=== PATIENT | male | born 1990 | race African-American/Black ===

== ENCOUNTER 2018-03-24 14:04 | Emergency (ER) | payer SELFPAY ==
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
--- NOTE | 2018-03-24 14:04 | DT_ITS ---
This patient was seen during an EMR downtime March 20, 2018 - March 27, 2018. This patient may have a combination of paper and electronic documentation or all paper documentation. All documentation is viewable within the e-chart portion of [facility] for each patient visit.
== END 2018-03-24 15:10 | disposition home or self-care (01) ==
LOC: ED 18:10
PROVIDERS: Emergency Provider Emergency Medicine
DX: S62.336A Displaced fracture of neck of fifth metacarpal bone, right hand, initial encounter for closed fracture (principal); W22.8XXA Striking against or struck by other objects, initial encounter; Y93.9 Activity, unspecified; Y92.89 Other specified places as the place of occurrence of the external cause; Y99.9 Unspecified external cause status; Z72.0 Tobacco use
CPT/HCPCS: 29125; 73130; 99283

== ENCOUNTER 2018-03-25 23:00 | Emergency (ER) | payer SELFPAY ==
--- NOTE | 2018-03-25 23:00 | DT_ITS ---
This patient was seen during an EMR downtime March 20, 2018 - March 27, 2018. This patient may have a combination of paper and electronic documentation or all paper documentation. All documentation is viewable within the e-chart portion of [facility] for each patient visit.
== END 2018-03-25 23:15 | disposition home or self-care (01) ==
PROVIDERS: Emergency Provider Emergency Medicine
DX: M25.531 Pain in right wrist (principal); S62.501D Fracture of unspecified phalanx of right thumb, subsequent encounter for fracture with routine healing; D57.1 Sickle-cell disease without crisis; X58.XXXD Exposure to other specified factors, subsequent encounter
CPT/HCPCS: 96372; 99282

== ENCOUNTER 2019-09-04 08:29 | Emergency (ER) | payer SELFPAY ==
[2019-09-04 08:30] VITALS: BP 121/77; PULSE 84; RESP 16; TEMP 36.7; O2SAT 95; BMI 20.9
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
--- NOTE | 2019-09-04 08:43 | ED.DEP ---
ED Disposition - Plan for ED Patient: Referrals: Care Physician,No Primary [Primary Care Provider] - Stacy Waters MD [STAFF PHYSICIAN] - As Needed Additional Instructions: May resume regular use of right hand for work
== END 2019-09-04 09:02 | disposition home or self-care (01) ==
PROVIDERS: Emergency Provider Emergency Medicine
DX: Z76.89 Persons encountering health services in other specified circumstances (principal); Z72.0 Tobacco use
CPT/HCPCS: 99282

== ENCOUNTER 2019-11-14 12:53 | Emergency (ER) | payer SELFPAY ==
[2019-11-14 12:55] VITALS: BP 132/78; PULSE 74; RESP 15; TEMP 37.2; O2SAT 96; BMI 21.4
--- NOTE | 2019-11-14 13:32 | ED.VISSUMM ---
- ER Visit Summary Date of Service: 11/14/19 Chief Complaint: Sickle cell pain History of Present Illness: The patient is a 29 M who presents with sickle cell pain that became worse today. Patient describes his pain is sharp. Patient states his pain is in his low back and behind his knees bilaterally. Patient states his pain is worse when he lays on his back. Patient denies any fevers or chills. Patient admits to some intermittent lower chest pain. Patient denies any neck pain. Patient denies any nausea or vomiting. Patient states he took Naprosyn at home with no relief. Patient states his last episode of sickle cell pain where he needed to be treated was 2 years ago. Physical Examination: Vital signs are stable. Patient is afebrile. Patient is in no acute distress. Oral mucosa is pink and moist. Neck is supple. Trachea is midline. There is no JVD. Heart was regular rate and rhythm. Lungs are clear and equal bilaterally. Abdomen is soft. Bowel sounds are normal. There is no tenderness. Cranial nerves II through XII are intact. There are no focal motor or sensory deficits noted. Musculoskeletal exam reveals tenderness over the lumbar paraspinal muscles and lumbar spine. There is no bony crepitance or step-off. There is also mild tenderness in the popliteal fossa bilaterally. Range of motion was slightly limited in all motions of the lumbar spine and bilateral knee secondary to pain. There are no motor or sensory deficits noted. Test Results: CBC showed a white blood cell count of 11.2. Hemoglobin was 9.8 and hematocrit is 29.0. Manual differential showed 40 segs, 42 lymphocytes, 7 eosinophils, 1 myelocyte, and 2 promyelocytes. There were 13 nucleated RBCs. Comprehensive metabolic profile was essentially within normal limits. Emergency Department Course and Treatment: Patient was given IV fluids, morphine, and Zofran here. Patient had minimal relief with the morphine. Patient was given a dose of Dilaudid here. Patient was instructed to drink plenty of fluids. Patient was instructed to follow-up with his primary care physician in 5 to 7 days. Patient understood and was agreeable with the plan. All questions were answered. Disposition: Discharge home Impression: Sickle cell disease This note was generated with [employer] software. It may contain incorrect words, spelling, and punctuation that were not noted in review of the chart prior to signing ED Disposition - Plan for ED Patient: Disposition: Home or Assisted Living Diagnosis: Sickle cell disease Instructions: Sickle Cell Pain Crisis Referrals: Care Physician,No Primary [Primary Care Provider] - Zoie Burr MD [STAFF PHYSICIAN] - 5-7 Days
[2019-11-14] MEDS: Morphine 4 MG/ML Syringe IV (13:41)
[2019-11-14] MEDS: Ondansetron 4 MG/2 ML Vial IV (13:41)
[2019-11-14] MEDS: 0.9% Normal Saline 1,000 ML 1000 ML IV (13:42)
[2019-11-14 13:58] LABS: Bacteria 0 SEEN /hpf (None Seen); Mucous, Urine 0 SEEN /hpf (<or=2+); Squamous Epithelial Cells - UA 0 SEEN /hpf (0-5); White Blood Cells 0 SEEN /hpf (0-5)
[2019-11-14 14:00] LABS: Hemoglobin 9.8 g/dL (13.0-16.5); Mean Corp Hgb Conc 33.8 g/dL (32-36); Mean Corpuscular Hgb 24.4 pg (27.0-32.0); Mean Corpuscular Volume 72.1 fL (80-94); POSITIVE COUNT YES; POSITIVE MORPHOLOGY YES; Platelet Count 323 K/mm3 (150-450); RBC Distribution Width CV 16.6 % (11.6-14.6); RBC Distribution Width SD 39.5 fl (35.1-43.9); Red Blood Count 4.02 M/mm3 (4.6-6.2)
[2019-11-14 14:01] LABS: Color, Urine Yellow (Yellow); Glucose, Dipstick Normal (Normal); Ketone-Dipstick Negative (Negative); Leukocyte Esterase-Dipstick Negative /ul (Negative); Nitrite-Dipstick Negative (Negative); Occult Blood-Urine Negative /ul (Negative); Protein-Dipstick Negative (Negative); Urine Bilirubin Dipstick Negative (Negative); Urine Clarity Sl. Cloudy (Clear); Urine Urobilinogen Normal (Normal); Urine pH 6.5 (5.0 - 8.0)
[2019-11-14 14:07] LABS: Red Blood Cells-Urine 0-5 SEEN /hpf (0-5)
[2019-11-14 14:17] LABS: ALB/GLOB Ratio 1.1 RATIO (0.9-2.4); AST(SGOT) 32 U/L (15-37); Alanine Aminotransfer ALT/SGPT 28 U/L (16-61); Albumin, Serum 4.1 g/dL (3.2-5.0); Alkaline Phosphatase 97 U/L (45-117); Anion Gap 4 (5-15); BUN 8 mg/dL (7-18); BUN/Creat Ratio 10.1 RATIO (10-20); Calcium,Total 8.8 mg/dL (8.5-10.1); Chloride 108 mmol/L (98-107); Creatinine, Serum 0.79 mg/dL (0.70-1.30); EST Glomerular Filtration Rate 121 mL/min (>60); Est Glom Filt Rate - Afr Amer 147 mL/min (>60); Estimated Creatinine Clearance 133.57 ml/min; Globulin 3.8 g/dL (2.2-4.2); Glucose 94 mg/dL (74-106); Potassium 3.7 mmol/L (3.5-5.1); Protein, Total 7.9 g/dL (6.4-8.2); Sodium Level 141 mmol/L (136-145)
[2019-11-14 14:18] LABS: Differential Indicated MANUAL DIFF
[2019-11-14 14:55] LABS: Corrected WBC 11.2 K/mm3 (4.4-11.0); Eosinophil 7 % (0-5); Lymphocyte 42 % (19-41); Monocyte 8 % (0-10); Myelocyte 1 (0-0); Neutrophil-Segmented 40 % (47-70); Nucleated Red Bld Cells,Manual 13 % (0-5); Promyelocyte 2 (0-0); Total Cells Counted 100 (MANUAL DIFF)
[2019-11-14 14:56] LABS: Platelet Estimate ADEQUATE (ADEQ); Red Cell Morphology NORM C+C NORMAL (NORM C&C)
[2019-11-14 14:57] LABS: Absolute Neutrophil Count 4.5 X10^3/uL (2.0-7.7)
[2019-11-14] MEDS: HYDROmorphone 0.5 MG/0.5 ML SYRINGE IV (15:25)
[2019-11-14 15:57] VITALS: BP 116/74; PULSE 69; RESP 16; O2SAT 97
[2019-11-15 13:10] LABS: Pathologist Review Reviewed
== END 2019-11-14 15:59 | disposition home or self-care (01) ==
PROVIDERS: Emergency Provider Emergency Medicine
DX: D57.1 Sickle-cell disease without crisis (principal); F17.200 Nicotine dependence, unspecified, uncomplicated
CPT/HCPCS: 80053; 81001; 85025; 96361; 96374; 96375; 99284; J7030; A4216; J2405

== ENCOUNTER 2019-11-15 08:38 | Inpatient (IN) | payer SELFPAY ==
[2019-11-14 12:55] VITALS: BMI 21.4
[2019-11-15] VITALS (9 sets, daily range): BP systolic 109–138; BP diastolic 58–76; PULSE 60–77; RESP 16; TEMP 36.4–37.2; O2SAT 94–98; BMI 20.9; BMI 20.1
--- NOTE | 2019-11-15 09:14 | ED.DCSUM_ITS ---
History of Present Illness Chief Complaint: General Illness Informant: Patient Onset: Yesterday Context: Gradual Onset Timing: Continuous Narrative: Patient is a 29-year-old male with history of sickle cell disease and s plenectomy presenting with pain. Patient states since yesterday he has had pain in his tailbone area, right knee/calf as well as left forearm. States he also has some pain in the center of his chest. He was seen and evaluated yesterday for the same complaint. Patient had a CBC which showed a mild anemia and was treated with morphine and then IV Dilaudid. Patient had improvement of his symptoms was discharged home with Motrin. He states that overnight he took Motrin and Advil but did not have any relief of his pain. 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 He denies any other complaints at this time. He denies any shortness of breath, nausea, vomiting, GI or symptoms. He denies any edema of his legs. He questionably had a fever last night per his significant other because he felt warm. No documented fever. Patient denies any history of acute chest syndrome. He is not on any chronic pain medication per his report. Past Medical History - Allergies and Home Meds Allergies/Adverse Reactions: Allergies No Known Allergies Allergy (Verified 11/15/19 08:39) Primary Care Physician: Care Physician,No Primary [Primary Care Provider] - Past Medical History: - - Sickle cell disease Surgical History: - - Splenectomy Lives: Spouse/ Significant Other Smoking Status: Current every day smoker Review of Systems General: Reports: Chills, Fever, Malaise, Subjective. Denies: Sweats Eyes: Denies: Visual changes - bilaterally, Diplopia ENT: Denies: Rhinorrhea, Sore throat Cardiovascular: Reports: Chest pain. Denies: Palpitations Respiratory: Denies: Dyspnea, Cough, Dyspnea on exertion Gastrointestinal: Denies: Abdominal pain, Nausea, Vomiting, Diarrhea, Melena, Hematochezia Genitourinary: Denies: Dysuria, Hematuria, Frequency Musculoskeletal: Reports: Back pain, Extremity Pain Skin: Denies: Rash, Wounds Neurological: Denies: Headache, Weakness, Numbness Physical Exam Vital Signs/Narrative: Vital Signs Temp Pulse Resp BP Pulse Ox 11/15/19 08:40 99.0 F 77 16 115/70 96 Inital Vital Signs reviewed: Yes General: Well nourished, Well developed, No Acute Distress Head: Normocephalic, Atraumatic Eyes: Perrl, EOMI ENT: Moist mucous membranes, No rhinorrhea Neck: Supple, Nontender Cardiovascular: Regular rate, Regular rhythm, No murmurs Respiratory: No distress, CTA bilaterally, Chest nontender Abdomen: Soft, Nontender, Nondistended, Normal bowel sounds Back: Nontender, Normal Inspection. Negative for: CVA tenderness, Spinal tenderness Extremities: Nontender, No edema, - - No reproducible muscle skeletal tenderness, compartments are soft. No joint effusions present. No warmth of the joints.. Negative for: Tenderness Skin: Normal color, No rash Neurological: Alert, Oriented x3, Cranial nerves II-XII grossly intact, Normal Strength, Normal Sensation Psychological: Normal affect, Normal Mood Diagnostic/Tx/Re-eval Chest X-Ray - ED: 2 View, Read by ED Physician, Read by Radiologist, No Acute Disease Clinical Impression(s) from Imaging Studies Chest X-Ray 11/15/19 10:24 IMPRESSION: Normal x-ray examination of the chest. Electronically Signed: Braeden Mariano, at 11:12 EST , Service support , Laboratory Data 11/15/19 11/15/19 09:45 09:45 WBC 11.1 H RBC 3.81 L Hgb 9.1 L Hct 27.2 L MCV 71.4 L MCH 23.9 L MCHC 33.5 RDW Std Deviation 40.8 RDW Coeff of Marko 17.5 H Plt Count 275 MPV 8.4 Immature Gran % (Auto) 3.800 H Neut % (Auto) 54.2 Lymph % (Auto) 31.7 Weakley % (Auto) 6.6 Eos % (Auto) 3.3 Baso % (Auto) 0.4 Absolute Neuts (auto) 6.0 Absolute Lymphs (auto) 3.53 Nucleated RBC % 20.1 H Diff Path Review May foll Hypochromasia 1+ Anisocytosis 2+ Sickle Cells 1+ Target Cells 2+ Retic Count 8.97 H Immature Retic Fraction 34.80 H Retic Hgb Equivalent 23.7 L Troponin I < 0.015 - Rhythm Strip Rhythm Strip: Sinus Rhythm Rate: 60 Ectopy: None - EKG Initial EKG Interpretation: Sinus Rhythm, - - Normal sinus rhythm at a rate of 60 Normal axis Normal intervals Nonspecific T wave inversion in V1 and V2 LVH criteria met - Medical Decision Making Patient evaluated for multiple sites of pain. He does have history of sickle cell disease his presentation is consistent with his prior sickle cell flares. He does have some mild chest pain. He is not hypoxic. Chest x-ray is not show any acute infiltrate and his troponin is normal. EKG does not show any dynamic ST segment changes. I do not suspect acute chest crisis. His reticulocyte count is elevated and I am not concerned for acute aplastic crisis. Patient does have a mild anemia which is likely his baseline. Patient receives 2 doses of IV Dilaudid as well as IV Toradol. He is not having any significant improvement of his pain. He will be admitted for acute pain crisis. He is agreeable with this plan. I think this is especially indicated as patient does not have a PCP or a look out tower fire watcher. Patient is ordered a third dose of IV Dilaudid in the emergency room. Discussed with Dr. Pichardo who is agreeable with admission. Patient stable at time of disposition. ED Disposition - Plan for ED Patient: Disposition: Acute Care [facility] Diagnosis: Sickle cell pain crisis Referrals: Care Physician,No Primary [Primary Care Provider] -
--- NOTE | 2019-11-15 09:14 | EKG12_ITS ---
Test Reason : PAIN Blood Pressure : / mmHG Vent. Rate : 060 BPM Atrial Rate : 060 BPM P-R Int : 178 ms QRS Dur : 098 ms QT Int : 378 ms P-R-T Axes : 072 037 034 degrees QTc Int : 378 ms Normal sinus rhythm with sinus arrhythmia Possible Left atrial enlargement Left ventricular hypertrophy Abnormal ECG Confirmed by RASHEEDA WILKINS, CHIDI ([id number]), website/blog editor HARISH LIEBERMAN ([id number]) on 11/20/2019 7:50:35 AM Referred By: PETE Confirmed By:CHIDI VANESSA MD
[2019-11-15] MEDS: Ketorolac 15 MG/ML Vial IV (09:46)
[2019-11-15] MEDS: 0.9% Normal Saline 1,000 ML 999 ML IV (09:47)
[2019-11-15] MEDS: HYDROmorphone 1 MG/ML Syringe IV ×6 (09:47→22:50)
[2019-11-15 09:55] LABS: Absolute Lymphocyte Count 3.53 X10^3/uL (0.83-4.51); Basophil# 0.05 X10^3/uL; Basophil% 0.4 % (0-1); Eosinophil# 0.37 X10^3/uL; Eosinophils% 3.3 % (0-5); Hematocrit 27.2 % (40-54); Hemoglobin 9.1 g/dL (13.0-16.5); Lymphocyte # 3.53 X10^3/ul (4.0); Lymphocyte % 31.7 % (19-41); Mean Corp Hgb Conc 33.5 g/dL (32-36); Mean Corpuscular Hgb 23.9 pg (27.0-32.0); Mean Corpuscular Volume 71.4 fL (80-94); Mean Platelet Vol. 8.4 fl (6.2-12.0); Monocyte# 0.74 X10^3/uL; Monocyte% 6.6 % (0-10); NRBC Flagged by Analyzer 20.1 % (0-5); Neutrophil # 6.02 X10^3/uL (2.7-7.7); Neutrophil % 54.2 % (47-70); POSITIVE COUNT YES; POSITIVE MORPHOLOGY YES; Platelet Count 275 K/mm3 (150-450); RBC Distribution Width CV 17.5 % (11.6-14.6); RBC Distribution Width SD 40.8 fl (35.1-43.9); Red Blood Count 3.81 M/mm3 (4.6-6.2); White Blood Count 11.1 K/mm3 (4.4-11.0)
[2019-11-15 10:18] LABS: Anisocytosis 2+; Sickle 1+; Target Cells 2+
[2019-11-15 10:19] LABS: Hypochromasia 1+
--- NOTE | 2019-11-15 10:24 | RAD_ITS ---
STUDY: X-RAY CHEST REASON FOR EXAM: Male, 29 years old. PAIN FROM SICKLE CELL. TECHNIQUE: PA and lateral views of the chest. COMPARISON: None. FINDINGS: The lungs are clear and expanded. There is no demonstrated pleural abnormality. Normal size heart. Normal mediastinum and ferdinand. Normal visualized pulmonary arteries. Normal visualized aortic arch and descending thoracic aorta. Normal visualized thoracic spine. Normal visualized ribs, clavicles, and shoulders. There is no demonstrated abnormality of the visualized soft tissue structures of the upper abdomen. RAD/Chest PA and Lateral IMPRESSION: Normal x-ray examination of the chest. Electronically Signed: Braeden Quintana, at 11:12 EST , Service support ,
[2019-11-15 10:33] LABS: Reticulocyte Count 8.97 % (0.5-1.5)
[2019-11-15 10:34] LABS: RET-HE 23.7 pg (30-35)
--- NOTE | 2019-11-15 11:19 | HP.PCM_ITS ---
History of Present Illness Date of Admission: 11/15/19 Chief Complaint: back pain and chest pain The patient is a 29 year old M with medical history of sickle cell disease. He was admitted through the ED on 11/15/2019 with a complaint of back pain and chest pain which is started on the day of admission. He described pain as sharp and rated at about 8/10. He denied any aggravating or relieving factors and denied any fever or chills, shortness of breath or cough, nausea vomiting or diarrhea. Review of systems otherwise negative. 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 His last vaso-occlusive crisis was 2 years ago. Labs showed white cell count of 11.1 with hemoglobin of 9.1. Vitals were stable he was saturating at 98% on room air. Chest x-ray showed no acute cardiopulmonary process. He has been admitted to be managed for acute vaso-occlusive sickle cell crisis. [] Past Medical History Allergies No Known Allergies Allergy (Verified 11/15/19 08:39) Home Medications: Ambulatory Orders Medication Instructions Recorded NK 09/04/19 Surgical History: - - Splenectomy Psychiatric History: No pertinent psych hx Lives: Spouse/ Significant Other Smoking Status: Current every day smoker Tobacco Use: Cigarettes Alcohol: Occasional Drugs: None - *Family History Sibling History Items: - - sickle cell disease Maternal History Items: No pertinent history Paternal History Items: No pertinent history Review of Systems Constitutional: Denies: Chills, Fever, Malaise, Weakness, Weight Change Eyes: Denies: Blurred vision HEENT: Denies: Head Aches, Sinus Congestion, Sinus Drainage Cardiovascular: Reports: Chest Pain. Denies: Chest Pressure, Chest Tightness, Edema, Heaviness, Light Headedness, Orthopnea, Palpitations, Paroxysmal Noc. Dyspnea, Syncope Respiratory: Denies: Cough, Shortness of Breath, Shortness of breath at rest, Shortness of breath upon exertion, Sputum production Gastrointestinal: Denies: Abdominal Pain, Nausea, Vomiting Genitourinary: Denies: Dysuria Musculoskeletal: Reports: Back Pain. Denies: Joint Tenderness, Muscle pain, Neck Pain, Shoulder Pain Skin: Denies: Rash, Wounds Neurological: Denies: Numbness, Tingling, Focal weakness Psychiatric: Denies: Anxiety, Depression, Homicidal Ideations, Suicidal Ideations Hematologic/ Lymphatic: Denies: Easy Bruising, Easy Bleeding VTE Information - Inpt Only VTE Present on Admission: No VTE Pharm Prophylaxis ordered?: Yes Patient Problems: Active and Suspected Problems Sickle cell pain crisis (Acute) - Physical Exam Vitals/I&O's: Vital Signs Temp Pulse Resp BP Pulse Ox 99.0 F 77 16 115/70 96 11/15/19 08:40 11/15/19 08:40 11/15/19 08:40 11/15/19 08:40 11/15/19 08:40 Oxygen Delivery Method Room Air Weight: 150 lb 5.684 oz Body Mass Index (BMI) 20.9 General: Alert, Oriented x3, Cooperative, No apparent distress HEENT: Atraumatic, PERRLA, EOMI, Normocephalic Oral: Moist Mucosa Neck: Supple, No JVD, Negative Carotid Bruits Lungs: Clear to auscultation, Normal air movement, No rhonchi, No wheeze, No rales Cardiovascular: Regular rate, Regular Rhythm, Normal S1, Normal S2, No murmurs Abdomen: Bowel Sounds Present, Soft, Non Tender, Non-Distended, No Hepato- splenomegaly Extremities: No clubbing, No cyanosis, No edema, Capillary Refill Less than 3 Seconds Skin: No rashes, No breakdown Musculoskeletal: No Tenderness to Palpation of Joints or Extremities Lymphatic: No Cervical, Supraclavicular, or Inguinal Adenopathy Neurological: Cranial nerves II-XII grossly intact, Neuro grossly intact, Motor Exam 5/5 strength throughout Psych/Mental Status: Normal Affect, Appropriate, Alert and oriented to time, place, person, mood and affect Laboratory Results 11/15/19 09:45: WBC 11.1 H, RBC 3.81 L, Hgb 9.1 L, Hct 27.2 L, MCV 71.4 L, MCH 23.9 L, MCHC 33.5, RDW Std Deviation 40.8, RDW Coeff of Marko 17.5 H, Plt Count 275, MPV 8.4, Immature Gran % (Auto) 3.800 H, Neut % (Auto) 54.2, Lymph % (Auto) 31.7, Gove % (Auto) 6.6, Eos % (Auto) 3.3, Baso % (Auto) 0.4, Absolute Neuts (auto) 6.0, Absolute Lymphs (auto) 3.53, Nucleated RBC % 20.1 H, Diff Path Review May foll, Hypochromasia 1+, Anisocytosis 2+, Sickle Cells 1+, Target Cells 2+, Retic Count 8.97 H, Immature Retic Fraction 34.80 H, Retic Hgb Equivalent 23.7 L 11/15/19 09:45: Troponin I < 0.015 Diagnostic Data Chest X-Ray 11/15/19 10:24 IMPRESSION: Normal x-ray examination of the chest. Electronically Signed: Braeden Quintana, at 11:12 EST , Service support , Assessment/Plan All Active Problems Sickle cell pain crisis (Acute) 29 y/o admitted with a complaint of chest pain and back pain 1. Acute vaso-occlusive crises due to Sickle Cell Disease * admit to PCU with telemetry * hydrate aggressively with iVF NS @ 200cc/hr * IV morphine 4mg every 3 hours as needed. PO tylenol prn for pain * Counseled that he would need to follow-up with primary care doctor and small arms artillery repairer upon discharge for closer monitoring * 2. Anemia: Hb is 9.1. Some microcytic, chronic anemia and this is likely due to sickle cell disease. Will monitor. 2. DVT prophylaxis: lovenox Code Visit OBSV E&M: [id number] Initial observation care L3
[2019-11-15] MEDS: 0.9% Normal Saline 1,000 ML 200 ML IV ×3 (12:24→21:46)
[2019-11-15] MEDS: 0.9% Saline Lock 10 ML Syringe IV (12:25)
[2019-11-15] MEDS: Morphine 4 MG/ML Syringe IV ×2 (13:08→16:09)
[2019-11-15] MEDS: Ibuprofen 400 MG Tablet PO (15:07)
[2019-11-15] MEDS: Zolpidem Tartrate 5 MG Tablet PO (22:50)
[2019-11-16] VITALS (14 sets, daily range): BP systolic 111–136; BP diastolic 62–73; PULSE 68–141; RESP 16–18; TEMP 36.6–37.1; O2SAT 92–96
[2019-11-16] MEDS: HYDROmorphone 1 MG/ML Syringe IV ×11 (01:09→22:20)
[2019-11-16] MEDS: Morphine 4 MG/ML Syringe IV ×3 (02:25→23:48)
[2019-11-16] MEDS: 0.9% Saline Lock 10 ML Syringe IV ×9 (02:30→22:20)
[2019-11-16] MEDS: 0.9% Normal Saline 1,000 ML 200 ML IV (02:47)
[2019-11-16 05:45] LABS: Absolute Lymphocyte Count 4.94 X10^3/uL (0.83-4.51); Absolute Neutrophil Count 4.4 X10^3/uL (2.0-7.7); Basophil# 0.04 X10^3/uL; Basophil% 0.4 % (0-1); Eosinophil# 0.56 X10^3/uL; Eosinophils% 5.1 % (0-5); Hematocrit 25.1 % (40-54); Hemoglobin 8.6 g/dL (13.0-16.5); Lymphocyte # 4.94 X10^3/ul (4.0); Lymphocyte % 45.4 % (19-41); Mean Corp Hgb Conc 34.3 g/dL (32-36); Mean Corpuscular Hgb 24.7 pg (27.0-32.0); Mean Corpuscular Volume 72.1 fL (80-94); Mean Platelet Vol. 8.5 fl (6.2-12.0); Monocyte# 0.71 X10^3/uL; Monocyte% 6.5 % (0-10); NRBC Flagged by Analyzer 20.9 % (0-5); Neutrophil # 4.41 X10^3/uL (2.7-7.7); Neutrophil % 40.5 % (47-70); POSITIVE COUNT YES; POSITIVE MORPHOLOGY YES; Platelet Count 246 K/mm3 (150-450); RBC Distribution Width CV 17.2 % (11.6-14.6); RBC Distribution Width SD 41.9 fl (35.1-43.9); Red Blood Count 3.48 M/mm3 (4.6-6.2); White Blood Count 10.9 K/mm3 (4.4-11.0)
[2019-11-16 06:02] LABS: Differential Indicated SCAN CRITERIA MET
[2019-11-16 06:10] LABS: Anion Gap 3 (5-15); BUN 4 mg/dL (7-18); BUN/Creat Ratio 6.7 RATIO (10-20); Calcium,Total 8.3 mg/dL (8.5-10.1); Chloride 111 mmol/L (98-107); EST Glomerular Filtration Rate 167 mL/min (>60); Est Glom Filt Rate - Afr Amer 203 mL/min (>60); Estimated Creatinine Clearance 164.76 ml/min; Glucose 85 mg/dL (74-106); Sodium Level 141 mmol/L (136-145)
[2019-11-16 06:40] LABS: Anisocytosis 2+; Hypochromasia 2+; Platelet Estimate ADEQUATE (ADEQ)
[2019-11-16 06:41] LABS: Polychromasia RARE; Sickle 2+; Target Cells 2+
[2019-11-16 06:42] LABS: Basophilic Stippling 1+
[2019-11-16] MEDS: Ibuprofen 400 MG Tablet PO ×2 (07:34→23:11)
--- NOTE | 2019-11-16 07:59 | RAD_ITS ---
STUDY: X-RAY - PELVIS AND LEFT HIP REASON FOR EXAM: Male, 29 years old. Left hip pain, lower back pain, sickle cell disease w vaso-occlusive crises TECHNIQUE: 3 views of the pelvis and hip. COMPARISON: None. FINDINGS: There is a non-specific bowel gas pattern. A filter is seen within the inferior vena cava. There is evidence of sclerotic changes in the acetabulum. Normal bilateral superior and inferior pubic rami. Normal pubic symphysis. Normal bilateral ischial tuberosities. Normal visualized femoral head. There is cortical sclerosis with sub-cortical cyst formation of the acetabulum. is severe articular joint space narrowing of the hip. Multiple geodes are seen in the left femoral head. 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 Deformity of the right femoral head and neck. Scattered areas of sclerosis most likely secondary to sickle cell disease. RAD/HIP, UNI W/ Pelvis 2-3 Views IMPRESSION: Marked degree of the degenerative change of the left hip joint with the findings suggestive of avascular necrosis. Scattered sclerotic foci in the pelvis as well as the right femur in keeping with the patient''s history of sickle cell. Electronically Signed: Braeden Quintana, at 13:14 EST , Service support ,
[2019-11-16] MEDS: Enoxaparin 40 MG/0.4 ML Syringe SC (08:41)
[2019-11-16] MEDS: Ketorolac 30 MG/ML Syringe IV ×2 (08:41→16:45)
--- NOTE | 2019-11-16 10:10 | CASEMGMT ---
Patient is self pay. SW went to patient's room to meet with him. He and his girlfriend were lying in bed. SW asked if it was ok if SW spoke with him regarding resources since he is self pay. He said it was fine. NADJA asked if he completed a Medicaid application. His response was someone was just in here asking me about that. His short response gave SW the impression he did not want to be bothered. NADJA told him SW is leaving a packet of resources for him regarding help with prescriptions, [facility], [place] [employer], Medicaid application, and [employer]. NADJA told him if he has questions he can ask for SW. Brittney DENTON DISASTER RECOVERY COORDINATOR
--- NOTE | 2019-11-16 10:58 | PN_ITS ---
Patient Problems: Active and Suspected Problems Sickle cell pain crisis (Acute) Subjective: Patient seen and examined. He says pain is better, but complains of 8/10 pain in his RLE. He also complains of pain in is left hip. He says pain in his left hip has been going on for a few months, and is worse with activity, especially when playing basketball. He described it as he feels like he has bone grinding on bone. He denies any fever or chills, shortness of breath or chest pain, nausea or vomiting. Review of systems is otherwise negative. Labs and vitals reviewed. Vitals/I&O's: Vital Signs Temp Pulse Resp BP Pulse Ox 97.9 F 82 16 129/68 H 92 11/16/19 09:41 11/16/19 09:41 11/16/19 09:41 11/16/19 09:41 11/16/19 09:41 Oxygen Delivery Method Room Air Weight: 143 lb 15.39 oz Body Mass Index (BMI) 20.0 Intake and Output for Last 24 Hours 11/14/19 11/15/19 11/16/19 23:59 23:59 23:59 Intake Total 3346.67 / 3346.67 2470 / 2470 Output Total 1500 / 1500 1100 / 1100 Balance 1846.67 / 1846.67 1370 / 1370 General: Alert, Oriented x3, Cooperative, No apparent distress HEENT: Atraumatic, PERRLA, EOMI, Normocephalic Oral: Moist Mucosa Neck: Supple, No JVD, Negative Carotid Bruits Lungs: Clear to auscultation, Normal air movement, No rhonchi, No wheeze, No rales Cardiovascular: Regular rate, Regular Rhythm, Normal S1, Normal S2, No murmurs Abdomen: Bowel Sounds Present, Soft, Non Tender, Non-Distended, No Hepato- splenomegaly Extremities: No clubbing, No cyanosis, No edema, Capillary Refill Less than 3 Seconds Skin: No rashes, No breakdown Musculoskeletal: No Tenderness to Palpation of Joints or Extremities Lymphatic: No Cervical, Supraclavicular, or Inguinal Adenopathy Neurological: Cranial nerves II-XII grossly intact, Neuro grossly intact, Motor Exam 5/5 strength throughout Psych/Mental Status: Normal Affect, Appropriate, Alert and oriented to time, place, person, mood and affect Laboratory Results 11/16/19 05:34: WBC 10.9, RBC 3.48 L, Hgb 8.6 L, Hct 25.1 L, MCV 72.1 L, MCH 24.7 L, MCHC 34.3, RDW Std Deviation 41.9, RDW Coeff of Marko 17.2 H, Plt Count 246, MPV 8.5, Immature Gran % (Auto) 2.100 H, Neut % (Auto) 40.5 L, Lymph % (Auto) 45.4 H, [place] % (Auto) 6.5, Eos % (Auto) 5.1 H, Baso % (Auto) 0.4, Absolute Neuts (auto) 4.4, Absolute Lymphs (auto) 4.94 H, Nucleated RBC % 20.9 H , Diff Path Review February, Platelet Estimate ADEQUATE, Polychromasia RARE, Hypochromasia 2+, Basophilic Stippling 1+, Anisocytosis 2+, Sickle Cells 2+, Target Cells 2+ 11/16/19 05:34: Sodium 141, Potassium 4.0, Chloride 111 H, Carbon Dioxide 27.0, Anion Gap 3 L, BUN 4 L, Creatinine 0.60 L, Estim Creat Clear Calc 164.76, Est GFR (MDRD) Af Amer 203, Est GFR (MDRD) Non-Af 167, BUN/Creatinine Ratio 6.7 L, Glucose 85, Calcium 8.3 L Diagnostic Data Chest X-Ray 11/15/19 10:24 IMPRESSION: Normal x-ray examination of the chest. Electronically Signed: Braeden Mariano, at 11:12 EST , Service support , Current Medications Acetaminophen (Tylenol) 650 mg PO Q6H PRN PRN PRN Reason: Pain Score 1-3/Temp > 100.7 F Enoxaparin Sodium (Lovenox) 40 mg SC DAILY [facility] Last Admin: 11/16/19 08:41 Dose: 40 mg Documented by: Glucagon () 1 mg IM .X1 PRN PRN Reason: Hypoglycemia Hydromorphone HCl (Dilaudid Inj) 1 mg IV Q2H PRN PRN PRN Reason: Pain Score 6-10/10 Last Admin: 11/16/19 09:42 Dose: 1 mg Documented by: Dextrose (Dextrose 10%-Water) 250 mls @ 999 mls/hr IV .Q16M PRN; Protocol PRN Reason: HYPOGLYCEMIA Ibuprofen (Motrin) 400 mg PO Q4H PRN PRN PRN Reason: Pain Score 1-3/Temp > 100.7 F Last Admin: 11/16/19 07:34 Dose: 400 mg Documented by: Ketorolac Tromethamine (Toradol) 30 mg IV Q6H PRN PRN PRN Reason: Pain Score 1-10/10 Stop: 11/21/19 07:55 Last Admin: 11/16/19 08:41 Dose: 30 mg Documented by: Nitroglycerin (Nitrostat) 0.4 mg SUBLINGUAL Q5M PRN PRN Reason: CARDIAC/CHEST PAIN Ondansetron HCl (Zofran) 4 mg IV Q8H PRN PRN PRN Reason: NAUSEA/VOMITING Sodium Chloride () 10 - 40 ml IV UD PRN PRN Reason: SALINE FLUSH Last Admin: 11/16/19 09:42 Dose: 10 ml Documented by: Zolpidem Tartrate (Ambien (Generic)) 5 mg PO QHS PRN PRN PRN Reason: INSOMNIA Last Admin: 11/15/19 22:50 Dose: 5 mg Documented by: STROKE Vital Signs/Narrative: Vital Signs Temp Pulse Resp BP BP Pulse Ox 11/16/19 09:41 97.9 F 82 16 129/68 H 92 11/16/19 07:32 136/73 H Medical Necessity - Tobacco Use Smoking Status: Current every day smoker Tobacco Use: Cigarettes Assessment/Plan All Active Problems Sickle cell pain crisis (Acute) 29 y/o admitted with a complaint of chest pain and back pain 1. Acute vaso-occlusive crises due to Sickle Cell Disease * complaining of pain in his RLE and left hip. Pain in left hip has been going on for a few months * IV morphine was not adequate pain control, so he is now on IV dilaudid. WIll add on IV ketorolac * continue aggressive hydration with IVF NS @ 200cc/hr * encourage liberal oral hydration * get xray of left hip to assess for avascular necrosis of the hip in light of chronic left hip pain * will need referral to PCP and food manager upon discharge * 2. Anemia: Hb is 8.6 today. slight drop is likely due to aggressive IVF hydrat ion. Will monitor. DVT prophylaxis: lovenox. Disposition: Patient is self-pay and will likely need a few days of pain medication upon discharge. Reviewed with pharmacy in the lowers priced opiates are as follows: 12 tablets of p.o. oxycodone 5 mg will cause $12.41. 12 tablets of p.o. [place] 5/325 mg will cause $12.93. Code Visit Inpatient E&M: 08953 Subs Hosp L2
[2019-11-16 13:42] LABS: Pathologist Review Reviewed
[2019-11-16 13:47] LABS: Pathologist Review Reviewed
--- NOTE | 2019-11-16 13:50 | CASEMGMT ---
RN CM Assessment Note Presentation: Vaso-occlusive crises due to Sickle Cell Disease. L hip joint with findings suggestive of avascular necrosis. Intro role of CM and purpose of RN CM assessment to pt. Pt is awake, alert and able to participate in assessment. Demographics, PCP and Pharmacy verified. Pt states he does not have care needs at home. SW spoke with pt re: self-pay status and PCP. RN CM encouraged pt to call and establish with local PCP. Discussed process of calling for appt, completing paperwork. PCP: none Specialists: none currently Preferred Pharmacy: [facility] Insurance: self pay Prescription Benefit: none. Pt says he generally pays out of pocket for meds. SW gave information re: assist LNOK: Laurie Cooper, significant other Living Arrangements: Lives independently. Denies care needs. DME: none HHC: none Patient DC goals: Home DC PLAN: Home Lillian CRAIN RN ACM
[2019-11-16] MEDS: Zolpidem Tartrate 5 MG Tablet PO (22:34)
[2019-11-17] VITALS (9 sets, daily range): BP systolic 112–132; BP diastolic 51–77; PULSE 68–94; RESP 16–18; TEMP 36.6–37; O2SAT 92–96
[2019-11-17] MEDS: HYDROmorphone 1 MG/ML Syringe IV ×11 (00:22→22:13)
[2019-11-17] MEDS: Acetaminophen 325 MG Tablet 650 MG PO (01:37)
[2019-11-17] MEDS: Morphine 4 MG/ML Syringe IV ×5 (03:04→21:04)
[2019-11-17 07:05] LABS: Absolute Lymphocyte Count 4.67 X10^3/uL (0.83-4.51); Basophil# 0.03 X10^3/uL; Basophil% 0.3 % (0-1); Eosinophil# 0.36 X10^3/uL; Eosinophils% 3.2 % (0-5); Hematocrit 26.7 % (40-54); Lymphocyte # 4.67 X10^3/ul (4.0); Lymphocyte % 41.6 % (19-41); Mean Corp Hgb Conc 33.7 g/dL (32-36); Mean Corpuscular Hgb 24.4 pg (27.0-32.0); Mean Corpuscular Volume 72.4 fL (80-94); Mean Platelet Vol. 9.3 fl (6.2-12.0); Monocyte# 0.94 X10^3/uL; Monocyte% 8.4 % (0-10); NRBC Flagged by Analyzer 14.7 % (0-5); Neutrophil # 5.04 X10^3/uL (2.7-7.7); Neutrophil % 44.9 % (47-70); POSITIVE COUNT YES; POSITIVE MORPHOLOGY YES; Platelet Count 282 K/mm3 (150-450); RBC Distribution Width CV 17.3 % (11.6-14.6); RBC Distribution Width SD 43.1 fl (35.1-43.9); Red Blood Count 3.69 M/mm3 (4.6-6.2); White Blood Count 11.2 K/mm3 (4.4-11.0)
[2019-11-17 07:20] LABS: Anion Gap 4 (5-15); BUN 7 mg/dL (7-18); BUN/Creat Ratio 10.1 RATIO (10-20); Calcium,Total 8.9 mg/dL (8.5-10.1); Chloride 104 mmol/L (98-107); Creatinine, Serum 0.69 mg/dL (0.70-1.30); EST Glomerular Filtration Rate 141 mL/min (>60); Est Glom Filt Rate - Afr Amer 170 mL/min (>60); Estimated Creatinine Clearance 143.27 ml/min; Glucose 76 mg/dL (74-106); Sodium Level 137 mmol/L (136-145)
[2019-11-17 07:22] LABS: Differential Indicated SCAN CRITERIA MET
[2019-11-17] MEDS: 0.9% Saline Lock 10 ML Syringe IV ×5 (07:49→18:58)
--- NOTE | 2019-11-17 08:00 | MRI_ITS ---
STUDY: MR PELVIS WITHOUT CONTRAST REASON FOR EXAM: Male, 29 years old. AVASCULAR NECROSIS OF LEFT HIP -- NKI, intermittent pain , popping left hip, hx sickle cell anemia TECHNIQUE: Standardized fat and water weighted pulse sequences were obtained in all 3 orthogonal planes. COMPARISON: None. FINDINGS: Heterogeneous marrow signal right femoral head concordant with the pattern of heterogeneous sclerosis of the right femoral head seen on x-ray, consistent with avascular necrosis without cortical collapse. Without cystic degenerative features. There is mild to moderate joint space narrowing on the right, mild joint margin osteophytic lipping. There is partial [id number] articulation of the left hip joint, prominent joint margin osteophytic lipping, marked distortion of the femoral head articular surface, heterogeneous marrow signal characteristics, each compatible with advanced avascular necrosis, associated with severe DJD. Bilaterally, there are serpiginous and heterogeneous T2 hyperintense regions within the acetabula, also within the left ischial tuberosity, proximal right femoral diaphysis, left intertrochanteric femur and proximal left femoral diaphysis. These features are consistent with additional areas of avascular necrosis and concordant with the patient''s underlying diagnosis of sickle cell anemia. There are small similar regions within the iliac bones, adjacent to the SI joints. There is scalloping of the endplates of the low lumbar vertebral bodies, also consistent with patient''s underlying diagnosis of sickle cell anemia. Intrapelvic, normal appearance of the evaluated portions of the bowel, no lymphadenopathy. There is mild circumferential thickening of wall the urinary bladder with mild trabeculation. No significant prostatomegaly. Body wall soft tissues including the myotendinous pelvic girdle unremarkable. MRI/Pelvis (Routine) IMPRESSION: Multifocal avascular necrosis involving pelvic bones, acetabulum, proximal femurs, femoral heads severe degenerative features and severe avascular necrosis of the left femoral head. The pattern is concordant with the underlying history of sickle cell anemia. Electronically Signed: Shen Marie MD at 14:32 EST Tel , Service support ,
--- NOTE | 2019-11-17 08:07 | NURSING ---
Assessment done while giving pt his morphine. Pt stated his mouth was so dry. Why is it so dry. Education given regarding side effect of Pain medication and the air is dry in the hospital. Encouraged pt to drink fluids. Pt asked why did they stop my IV. Pt states his mouth is too dry to drink fluids and that he would rather have IV fluids. Pt informed that this nurse will talk to the hospitalist about restarting IVF. Also will talk to hospitalist about constipation. pt states It has been a couple of days but I'm not worried about that right now. again, education given RE: consitipation and Narcotics. Will consult with Hospitalist about a stool softener.
[2019-11-17 08:21] LABS: Anisocytosis 2+; Differential Comment SCANNED; Hypochromasia 2+; Platelet Estimate ADEQUATE (ADEQ); Sickle 1+; Target Cells 2+
[2019-11-17] MEDS: 0.9% Normal Saline 1,000 ML 75 ML IV ×2 (08:49→22:16)
--- NOTE | 2019-11-17 09:15 | PCM.CONS.GEN ---
Reason for Consult Date of Consultation: 11/17/19 Reason for Consultation: Left hip pain History of Present Illness: The patient is a 29 year old M [with history of sickle cell anemia. He has had chronic left hip pain. He describes it as a grinding sensation that hurts the most when he weight bears. He has not had previous treatment for this although he has been previously hospitalized for sickle cell crisis. He was admitted on 11/15 for sickle cell treatment.] Past Medical History Allergies No Known Allergies Allergy (Verified 11/15/19 08:39) Home Medications: Ambulatory Orders Medication Instructions Recorded NK 09/04/19 Surgical History: - - Splenectomy Psychiatric History: No pertinent psych hx Lives: Spouse/ Significant Other Smoking Status: Current every day smoker Tobacco Use: Cigarettes Alcohol: Occasional Drugs: None - *Family History Sibling History Items: - - sickle cell disease Maternal History Items: No pertinent history Paternal History Items: No pertinent history Patient Problems: Active and Suspected Problems Sickle cell pain crisis (Acute) - Physical Exam Vitals/I&O's: Vital Signs Temp Pulse Resp BP Pulse Ox 98.0 F 74 16 112/51 L 92 11/17/19 04:15 11/17/19 07:30 11/17/19 04:15 11/17/19 04:15 11/17/19 04:15 Oxygen Delivery Method Room Air Weight: 143 lb 15.39 oz Body Mass Index (BMI) 20.0 Intake and Output for Last 24 Hours 11/15/19 11/16/19 11/17/19 23:59 23:59 23:59 Intake Total 3346.67 / 3346.67 3590 / 3590 480 / 480 Output Total 1500 / 1500 1500 / 1500 200 / 200 Balance 1846.67 / 1846.67 2090 / 2090 280 / 280 General: Alert, Oriented x3, Cooperative, No apparent distress Extremities: No clubbing, No cyanosis, No edema, Capillary Refill Less than 3 Seconds, No Calf Tenderness, Tenderness - left hip with motion and palpation Neurological: Neuro grossly intact Psych/Mental Status: Normal Affect, Appropriate Comment: xrays reviewed. He has sclerosis and early collapse of the left femoral he Laboratory Results 11/15/19 09:45: Diff Path Review Reviewed 11/16/19 05:34: Diff Path Review Reviewed 11/17/19 06:08: WBC 11.2 H, RBC 3.69 L, Hgb 9.0 L, Hct 26.7 L, MCV 72.4 L, MCH 24.4 L, MCHC 33.7, RDW Std Deviation 43.1, RDW Coeff of Marko 17.3 H, Plt Count 282, MPV 9.3, Immature Gran % (Auto) 1.600 H, Neut % (Auto) 44.9 L, Lymph % (Auto) 41.6 H, [place] % (Auto) 8.4, Eos % (Auto) 3.2, Baso % (Auto) 0.3, Absolute Neuts (auto) 5.0, Absolute Lymphs (auto) 4.67 H, Nucleated RBC % 14.7 H, Differential Comment SCANNED, Diff Path Review May foll, Platelet Estimate ADEQUATE, Hypochromasia 2+, Anisocytosis 2+, Sickle Cells 1+, Target Cells 2+ 11/17/19 06:08: Sodium 137, Potassium 4.0, Chloride 104, Carbon Dioxide 29.0, Anion Gap 4 L, BUN 7, Creatinine 0.69 L, Estim Creat Clear Calc 143.27, Est GFR (MDRD) Af Amer 170, Est GFR (MDRD) Non-Af 141, BUN/Creatinine Ratio 10.1, Glucose 76, Calcium 8.9 Current Medications Acetaminophen (Tylenol) 650 mg PO Q6H PRN PRN PRN Reason: Pain Score 1-3/Temp > 100.7 F Last Admin: 11/17/19 01:37 Dose: 650 mg Documented by: Enoxaparin Sodium (Lovenox) 40 mg SC DAILY [facility] Last Admin: 11/16/19 08:41 Dose: 40 mg Documented by: Glucagon () 1 mg IM .X1 PRN PRN Reason: Hypoglycemia Hydromorphone HCl (Dilaudid Inj) 1 mg IV Q2H PRN PRN PRN Reason: Pain Score 6-10/10 Last Admin: 11/17/19 08:49 Dose: 1 mg Documented by: Dextrose (Dextrose 10%-Water) 250 mls @ 999 mls/hr IV .Q16M PRN; Protocol PRN Reason: HYPOGLYCEMIA Sodium Chloride () 1,000 mls @ 75 mls/hr IV .[id number] [facility] Last Admin: 11/17/19 08:49 Dose: 75 mls/hr Documented by: Ibuprofen (Motrin) 400 mg PO Q4H PRN PRN PRN Reason: Pain Score 1-3/Temp > 100.7 F Last Admin: 11/16/19 23:11 Dose: 400 mg Documented by: Ketorolac Tromethamine (Toradol) 30 mg IV Q6H PRN PRN PRN Reason: Pain Score 1-1010 Stop: 11/21/19 07:55 Last Admin: 11/16/19 16:45 Dose: 30 mg Documented by: Morphine Sulfate () 4 mg IV Q3H PRN PRN PRN Reason: Pain Score 1-1010 Last Admin: 11/17/19 07:48 Dose: 4 mg Documented by: Nitroglycerin (Nitrostat) 0.4 mg SUBLINGUAL Q5M PRN PRN Reason: CARDIAC/CHEST PAIN Ondansetron HCl (Zofran) 4 mg IV Q8H PRN PRN PRN Reason: NAUSEA/VOMITING Sodium Chloride () 10 - 40 ml IV UD PRN PRN Reason: SALINE FLUSH Last Admin: 11/17/19 07:49 Dose: 10 ml Documented by: Zolpidem Tartrate (Ambien (Generic)) 5 mg PO QHS PRN PRN PRN Reason: INSOMNIA Last Admin: 11/16/19 22:34 Dose: 5 mg Documented by: Assessment/Plan All Active Problems Sickle cell pain crisis (Acute) AVN left hip secondary to sickle cell disease I recommend MRI of the pelvis to evaluate the right hip for AVN I discussed pain control with him with either medication or intra-articular injections Patient will likely need a left THR for definitive treatment Will have him see the total joint subspecialist at [facility] (Dr. Griffith)upon discharge for further discussion and planning for such
--- NOTE | 2019-11-17 10:12 | NURSING ---
Pt has called me on my hospital phone total of 4 times since 729. At 0937, pt called this nurse and asked for me to come back to see him. This nurse told him that I was with another pt and i could be in there in 10 min. After 20 min, pt tried to call this nurse and this nurse was in middle of doing something with pt. Pt then called and Adenike PADRON went to see him while Adenike in there talking with pt, this nurse was able to go see pt. Pt was upset that i said 10 min I would be there and was not. I feel like I am being ignored. This nurse explained that as a nurse I was not ignoring him, that I came to see him as soon as I could. Pt does not want to speak with me or anyone but the doctor. This nurse Cortexted Dr. Carolina to come see pt. Arsh, Charge nurse aware of the above situation and will speak to pt as well.
--- NOTE | 2019-11-17 10:47 | NURSING ---
Nursing staff reported to this monorail charger operator that patient has been repeatedly calling out on the call light and becoming increasingly upset, yelling, and verbally aggressive. This RN had a conversation with the patient explaining that that type of behavior will not be tolerated. Patient expressed understanding.
[2019-11-17] MEDS: Enoxaparin 40 MG/0.4 ML Syringe SC (10:51)
--- NOTE | 2019-11-17 13:00 | NURSING ---
medicated and went down for MRI at this time.
[2019-11-17] MEDS: Ketorolac 30 MG/ML Syringe IV (14:12)
--- NOTE | 2019-11-17 15:24 | PCM.PN.HOSP ---
Patient Problems: Active and Suspected Problems Sickle cell pain crisis (Acute) Subjective: Doing well, pain is controlled no issues overnight. Vitals/I&O's: Vital Signs Temp Pulse Resp BP Pulse Ox 97.9 F 86 18 123/72 H 92 11/17/19 10:15 11/17/19 11:30 11/17/19 10:15 11/17/19 10:15 11/17/19 10:15 Oxygen Delivery Method Room Air Weight: 143 lb 15.39 oz Body Mass Index (BMI) 20.0 Intake and Output for Last 24 Hours 11/15/19 11/16/19 11/17/19 23:59 23:59 23:59 Intake Total 3346.67 / 3346.67 3590 / 3590 480 / 480 Output Total 1500 / 1500 1500 / 1500 1150 / 1150 Balance 1846.67 / 1846.67 2089 / 2089 -670 / -670 General: Alert, Oriented x3, Cooperative, No apparent distress HEENT: Atraumatic, PERRLA, EOMI, Normocephalic Oral: Moist Mucosa Neck: Supple, No JVD Lungs: Clear to auscultation, Normal air movement, No rhonchi, No wheeze, No rales Cardiovascular: Regular rate, Regular Rhythm, Normal S1, Normal S2, No murmurs Abdomen: Soft, Non Tender, Non-Distended, No Hepato-splenomegaly Extremities: No edema, Capillary Refill Less than 3 Seconds, Tenderness - To left hip with palpation and motion Skin: No rashes, No breakdown Neurological: Neuro grossly intact, Sensory exam intact to light touch and pain Psych/Mental Status: Normal Affect, Appropriate Laboratory Results 11/17/19 06:08: WBC 11.2 H, RBC 3.69 L, Hgb 9.0 L, Hct 26.7 L, MCV 72.4 L, MCH 24.4 L, MCHC 33.7, RDW Std Deviation 43.1, RDW Coeff of Marko 17.3 H, Plt Count 282, MPV 9.3, Immature Gran % (Auto) 1.600 H, Neut % (Auto) 44.9 L, Lymph % (Auto) 41.6 H, [place] % (Auto) 8.4, Eos % (Auto) 3.2, Baso % (Auto) 0.3, Absolute Neuts (auto) 5.0, Absolute Lymphs (auto) 4.67 H, Nucleated RBC % 14.7 H, Differential Comment SCANNED, Diff Path Review May foll, Platelet Estimate ADEQUATE, Hypochromasia 2+, Anisocytosis 2+, Sickle Cells 1+, Target Cells 2+ 11/17/19 06:08: Sodium 137, Potassium 4.0, Chloride 104, Carbon Dioxide 29.0, Anion Gap 4 L, BUN 7, Creatinine 0.69 L, Estim Creat Clear Calc 143.27, Est GFR (MDRD) Af Amer 170, Est GFR (MDRD) Non-Af 141, BUN/Creatinine Ratio 10.1, Glucose 76, Calcium 8.9 Current Medications Acetaminophen (Tylenol) 650 mg PO Q6H PRN PRN PRN Reason: Pain Score 1-3/Temp > 100.7 F Last Admin: 11/17/19 01:37 Dose: 650 mg Documented by: Enoxaparin Sodium (Lovenox) 40 mg SC DAILY [facility] Last Admin: 11/17/19 10:51 Dose: 40 mg Documented by: Glucagon () 1 mg IM .X1 PRN PRN Reason: Hypoglycemia Hydromorphone HCl (Dilaudid Inj) 1 mg IV Q2H PRN PRN PRN Reason: Pain Score 6-10/10 Last Admin: 11/17/19 14:59 Dose: 1 mg Documented by: Dextrose (Dextrose 10%-Water) 250 mls @ 999 mls/hr IV .Q16M PRN; Protocol PRN Reason: HYPOGLYCEMIA Sodium Chloride () 1,000 mls @ 75 mls/hr IV .[id number] [facility] Last Admin: 11/17/19 08:49 Dose: 75 mls/hr Documented by: Ibuprofen (Motrin) 400 mg PO Q4H PRN PRN PRN Reason: Pain Score 1-3/Temp > 100.7 F Last Admin: 11/16/19 23:11 Dose: 400 mg Documented by: Ketorolac Tromethamine (Toradol) 30 mg IV Q6H PRN PRN PRN Reason: Pain Score 1-10/10 Stop: 11/21/19 07:55 Last Admin: 11/17/19 14:12 Dose: 30 mg Documented by: Morphine Sulfate () 4 mg IV Q3H PRN PRN PRN Reason: Pain Score 1-10/10 Last Admin: 11/17/19 12:00 Dose: 4 mg Documented by: Nitroglycerin (Nitrostat) 0.4 mg SUBLINGUAL Q5M PRN PRN Reason: CARDIAC/CHEST PAIN Ondansetron HCl (Zofran) 4 mg IV Q8H PRN PRN PRN Reason: NAUSEA/VOMITING Sodium Chloride () 10 - 40 ml IV UD PRN PRN Reason: SALINE FLUSH Last Admin: 11/17/19 15:00 Dose: 10 ml Documented by: Zolpidem Tartrate (Ambien (Generic)) 5 mg PO QHS PRN PRN PRN Reason: INSOMNIA Last Admin: 11/16/19 22:34 Dose: 5 mg Documented by: STROKE Vital Signs/Narrative: Vital Signs Pulse 11/17/19 11:30 86 Medical Necessity - Tobacco Use Smoking Status: Current every day smoker Tobacco Use: Cigarettes Assessment/Plan All Active Problems Sickle cell pain crisis (Acute) 1. 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/sickle cell anemia with pain crisis -Appreciate orthopedic input -MRI with bilateral avascular necrosis, will be followed up as an outpatient once his pain crisis is managed -Continue with IV hydration and narcotics, he is currently not anemic therefore does not need blood transfusion and is not hypoxic -Consult hematology for further recommendations and assistance in managing his sickle cell disease -He states that he has a very mild form of the disease and he is not on any current maintenance therapy and his last crisis was about 2 years ago DVT: Lovenox Code Visit Inpatient E&M: 42166 Subs Hosp L2
[2019-11-17] MEDS: oxyCODONE 5 MG Tablet PO (20:04)
--- NOTE | 2019-11-17 20:12 | NURSING ---
This nurse was assessing this pt. after giving pain medication for pain 01/24. Visitor is at bedside. When pt. sat up, this nurse viewed a small plastic bottle of Fireball Whiskey. This nurse did not confront patient, but notified charge nurse Loni and she is going to notify security.
--- NOTE | 2019-11-17 20:25 | NURSING ---
fire management officer, Sabina, came to pt. room to talk to pt. Pt. admitted to having alcohol. Pt. gave small bottle of alcohol to officer and officer poured down drain. Pt. was cooperative and denied having any other alcohol in room. Officer had talk with pt. about safety and not being allowed to have alcohol in hospital especially with pain medication. This nurse was also in room when security was there. This nurse apologized to pt. but stated it was necessary for his health and safety to report this to security. Pt. cooperative and verbalized understanding.
--- NOTE | 2019-11-17 23:35 | NURSING ---
Rounded on pt. to assess pain. States pain is 4/10 at this time. Pt. had concern about RUL lung felt like a fluttering inside. This nurse auscultated lungs and heard coarse crackle, rub? RUL. No pain in area per pt., no SOB, no nausea, no crepitus. Informed RT Shaheed to come listen to pt. Will notify MD to get IVF DC. Will continue to monitor.
[2019-11-18 00:12] VITALS: BP 130/83; PULSE 72; RESP 16; TEMP 36.8; O2SAT 99
[2019-11-18] MEDS: Ibuprofen 400 MG Tablet PO ×3 (00:18→08:39)
[2019-11-18] MEDS: HYDROmorphone 1 MG/ML Syringe IV ×3 (00:19→04:24)
[2019-11-18] MEDS: 0.9% Saline Lock 10 ML Syringe IV ×5 (00:19→06:36)
[2019-11-18 02:53] VITALS: PULSE 85
[2019-11-18 04:30] VITALS: BP 108/61; PULSE 68; RESP 16; TEMP 36.7; O2SAT 95
[2019-11-18 06:31] LABS: Absolute Lymphocyte Count 3.58 X10^3/uL (0.83-4.51); Absolute Neutrophil Count 4.4 X10^3/uL (2.0-7.7); Basophil# 0.02 X10^3/uL; Basophil% 0.2 % (0-1); Eosinophil# 0.44 X10^3/uL; Eosinophils% 4.7 % (0-5); Hematocrit 24.3 % (40-54); Hemoglobin 8.2 g/dL (13.0-16.5); Lymphocyte # 3.58 X10^3/ul (4.0); Lymphocyte % 38.1 % (19-41); Mean Corp Hgb Conc 33.7 g/dL (32-36); Mean Corpuscular Hgb 23.6 pg (27.0-32.0); Mean Platelet Vol. 8.8 fl (6.2-12.0); Monocyte% 8.5 % (0-10); Neutrophil # 4.44 X10^3/uL (2.7-7.7); Neutrophil % 47.2 % (47-70); POSITIVE COUNT YES; POSITIVE MORPHOLOGY YES; Platelet Count 275 K/mm3 (150-450); RBC Distribution Width CV 16.6 % (11.6-14.6); RBC Distribution Width SD 41.1 fl (35.1-43.9); Red Blood Count 3.47 M/mm3 (4.6-6.2); White Blood Count 9.4 K/mm3 (4.4-11.0)
[2019-11-18] MEDS: Morphine 4 MG/ML Syringe IV (06:35)
[2019-11-18 06:54] LABS: Differential Indicated SCAN CRITERIA MET
[2019-11-18 07:00] VITALS: PULSE 71
[2019-11-18 07:45] LABS: Anisocytosis 2+; Differential Comment SCANNED; Hypochromasia 2+; Microcytosis 2+; Schistocytes 1+; Target Cells 2+
[2019-11-18] MEDS: Acetaminophen 325 MG Tablet 650 MG PO (10:19)
--- NOTE | 2019-11-18 10:19 | DCINST_ITS ---
- Discharge Diagnoses Current Active Problems: Current Active and Chronic Problems Sickle cell pain crisis (Acute) You will use the following diet at home:: Regular Your food should be the consistency of: Regular Your liquids should be the consistency of: Regular/Thin Call your doctor if you observe: Fever of 101 or Higher, Shortness of breath, Dizziness, Fainting spells, Swelling in the ankles, Chest pain, Increased palpitations (irregular heartbeat) Allergies/Adverse Reactions: Allergies No Known Allergies Allergy (Verified 11/15/19 08:39) Medications to take at Discharge Ibuprofen 800 mg PO BID #20 tab 11/18/19 The following prescriptions were given: Ibuprofen 800 mg PO BID #20 tab Transmission Status: Pending to [facility] Primary Care Physician: Care Physician,No Primary [Primary Care Provider] - Test Results: Test results from this visit will be discussed in further detail at your follow- up appointment, if applicable. Please Follow Up With: Jalen Griffith MD When: 2-4 weeks Please Follow Up With: [facility] When: MAEVE
[2019-11-18 10:30] VITALS: BP 110/65; PULSE 70; RESP 18; TEMP 36.7; O2SAT 97
--- NOTE | 2019-11-18 15:07 | PCM.DC.SUM ---
Discharge Date and Diagnosis Date of Admission: 11/15/19 Date of Discharge: 11/18/19 Hospital Course and Treatment Imaging Results: CXR: IMPRESSION: Normal x-ray examination of the chest. XR Pelvis and L Hip: IMPRESSION: Marked degree of the degenerative change of the left hip joint with the findings suggestive of avascular necrosis. Scattered sclerotic foci in the pelvis as well as the right femur in keeping with the patient''s history of sickle cell. MRI Pelvis: FINDINGS: Heterogeneous marrow signal right femoral head concordant with the pattern of heterogeneous sclerosis of the right femoral head seen on x-ray, consistent with avascular necrosis without cortical collapse. Without cystic degenerative features. There is mild to moderate joint space narrowing on the right, mild joint margin osteophytic lipping. There is partial alnx-wj-zexp articulation of the left hip joint, prominent joint margin osteophytic lipping, marked distortion of the femoral head articular surface, heterogeneous marrow signal characteristics, each compatible with advanced avascular necrosis, associated with severe DJD. Bilaterally, there are serpiginous and heterogeneous T2 hyperintense regions within the acetabula, also within the left ischial tuberosity, proximal right femoral diaphysis, left intertrochanteric femur and proximal left femoral diaphysis. These features are consistent with additional areas of avascular necrosis and concordant with the patient''s underlying diagnosis of sickle cell anemia. There are small similar regions within the iliac bones, adjacent to the SI joints. There is scalloping of the endplates of the low lumbar vertebral bodies, also consistent with patient''s underlying diagnosis of sickle cell anemia. Intrapelvic, normal appearance of the evaluated portions of the bowel, no lymphadenopathy. There is mild circumferential thickening of wall the urinary bladder with mild trabeculation. No significant prostatomegaly. Body wall soft tissues including the myotendinous pelvic girdle unremarkable. Consults: Ortho Operations: None Procedures: None Summary of Care Provided: Per HPI: The patient is a 29 year old M with medical history of sickle cell disease. He was admitted through the ED on 11/15/2019 with a complaint of back pain and chest pain which is started on the day of admission. He described pain as sharp and rated at about 8/10. He denied any aggravating or relieving factors and denied any fever or chills, shortness of breath or cough, nausea vomiting or diarrhea. Review of systems otherwise negative. He does not follow-up with a primary care doctor or java sybase developer and states he rarely gets crisis episodes. His last vaso-occlusive crisis was 2 years ago. Labs showed white cell count of 11.1 with hemoglobin of 9.1. Vitals were stable he was saturating at 98% on room air. Chest x-ray showed no acute cardiopulmonary process. He has been admitted to be managed for acute vaso-occlusive sickle cell crisis. Hospital Course 1. 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 His last crisis was about 2 years ago, though he states that he does have a chronic low level pain in both his hips. He presented for increased pain and orthopedic surgery was consulted after x-rays of his hip demonstrate avascular necrosis of the left hip. Orthopedic surgery ordered a pelvis MRI and recommended that he follow-up with them in the outpatient setting in 2 to 4 weeks. 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 He requested to go home today, the risks and benefits of discharge were discussed with him and he requested to be discharged on only ibuprofen. - Physical Exam Vitals/I&O's: Vital Signs Temp Pulse Resp BP Pulse Ox 98.0 F 70 18 110/65 97 11/18/19 10:30 11/18/19 10:30 11/18/19 10:30 11/18/19 10:30 11/18/19 10:30 Oxygen Delivery Method Room Air Weight: 143 lb 15.39 oz Body Mass Index (BMI) 20.0 Intake and Output for Last 24 Hours 11/16/19 11/17/19 11/18/19 23:59 23:59 23:59 Intake Total 3590 / 3590 2180 / 2180 385 / 385 Output Total 1500 / 1500 1950 / 1950 Balance 2089 / 2089 230 / 230 385 / 385 General: Alert, Oriented x3, Cooperative, No apparent distress HEENT: Atraumatic, PERRLA, EOMI, Normocephalic Oral: Moist Mucosa Neck: Supple, No JVD Lungs: Clear to auscultation, Normal air movement, No rhonchi, No wheeze, No rales Cardiovascular: Regular rate, Regular Rhythm, Normal S1, Normal S2, No murmurs Abdomen: Soft, Non Tender, Non-Distended, No Hepato-splenomegaly Extremities: No edema, Capillary Refill Less than 3 Seconds, Tenderness - To left hip with palpation and motion Skin: No rashes, No breakdown Neurological: Neuro grossly intact, Sensory exam intact to light touch and pain Psych/Mental Status: Normal Affect, Appropriate Laboratory Results 11/18/19 06:14: WBC 9.4, RBC 3.47 L, Hgb 8.2 L, Hct 24.3 L, MCV 70.0 L, MCH 23.6 L, MCHC 33.7, RDW Std Deviation 41.1, RDW Coeff of Marko 16.6 H, Plt Count 275, MPV 8.8, Immature Gran % (Auto) 1.300 H, Neut % (Auto) 47.2, Lymph % (Auto) 38.1, [place] % (Auto) 8.5, Eos % (Auto) 4.7, Baso % (Auto) 0.2, Absolute Neuts (auto) 4.4, Absolute Lymphs (auto) 3.58, Nucleated RBC % 9.0 H, Differential Comment SCANNED, Hypochromasia 2+, Anisocytosis 2+, Microcytosis 2+, Target Cells 2+, Schistocytes 1+ Call your doctor if you observe: Fever of 101 or Higher, Shortness of breath, Dizziness, Fainting spells, Swelling in the ankles, Chest pain, Increased palpitations (irregular heartbeat) Home Medications: Medications to take at Discharge Ibuprofen 800 mg PO BID #20 tab 11/18/19 Following Prescrptions Were Given to Patient: Ibuprofen 800 mg PO BID #20 tab Transmission Status: Received by [id number] Primary Care Physician: Care Physician,No Primary [Primary Care Provider] - Please Follow Up With: Jalen Griffith MD When: 2-4 weeks Please Follow Up With: [facility] When: MAEVE Disposition: Home Minutes spent on discharge:: 35 Patient Condition:: Stable Medical Necessity - Tobacco Use Smoking Status: Current every day smoker Tobacco Use: Cigarettes Meaningful Use Info Meaningful Use Diagnoses (Choose all that apply): None applicable Code Visit Inpatient E&M: 16237 Disch Hosp
[2019-11-19 13:19] LABS: Pathologist Review Reviewed
[2019-11-19 13:28] LABS: Pathologist Review Reviewed
== END 2019-11-18 11:15 | disposition home or self-care (01) | DRG 812 ==
LOC: ED 11:23 → PCU 11-16 07:25
PROVIDERS: Admitting Provider Student in an Organized Health Care Education/Training Program; Emergency Provider Emergency Medicine; Visit Provider Family Medicine
DX: D57.00 Hb-SS disease with crisis, unspecified (principal); M90.552 Osteonecrosis in diseases classified elsewhere, left thigh; M90.551 Osteonecrosis in diseases classified elsewhere, right thigh; M90.58 Osteonecrosis in diseases classified elsewhere, other site; Z23 Encounter for immunization; F17.210 Nicotine dependence, cigarettes, uncomplicated; Z95.828 Presence of other vascular implants and grafts
CPT/HCPCS: 36415; 71046; 72195; 73502; 80048; 84484; 85025; 85045; 93005; 99284; J7030; 90686; A4216

== ENCOUNTER 2019-12-17 09:14 | Emergency (ER) | payer SELFPAY ==
[2019-12-17 09:14] VITALS: BP 130/71; PULSE 82; RESP 15; TEMP 36.6; O2SAT 100; BMI 20.9
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
--- NOTE | 2019-12-17 09:50 | RAD_ITS ---
STUDY: X-RAY - RIGHT HAND REASON FOR EXAM: Male, 29 years old. Pt hit something with his hand 2 days ago; continued pain and swelling on area of 5th metacarpal TECHNIQUE: 3 view(s) of the hand. COMPARISON: Comparison is made with prior study dated March 24, 2018. FINDINGS: Normal radiocarpal articulation. Normal distal radioulnar joint. Normal visualized carpal bones. Normal carpal articulations Normal carpometacarpal articulation of the thumb. Normal second through fifth carpometacarpal joints. Deformity of the distal aspect of the fifth metacarpal in keeping with a healed boxer type fracture. There now is evidence of an acute nondisplaced transverse fracture at the base of the fifth metacarpal. Normal metacarpophalangeal joint of the thumb. Normal interphalangeal joint of the thumb. Normal proximal and distal phalanges of the thumb. Normal metacarpophalangeal joints of the second through fifth fingers. Normal proximal and distal interphalangeal joints of the second through fifth fingers. Normal phalanges of the second through fifth fingers. Soft tissue swelling. RAD/Hand Min 3 Views IMPRESSION: Acute nondisplaced transverse fracture at the base of the fifth metacarpal with overlying soft tissue swelling. Deformity of the distal portion of the fifth metacarpal in keeping with a healed boxer type fracture. Electronically Signed: Braeden Quintana, at 10:09 EST , Service support ,
== END 2019-12-17 11:30 | disposition home or self-care (01) ==
PROVIDERS: Emergency Provider Emergency Medicine
DX: S62.346A Nondisplaced fracture of base of fifth metacarpal bone, right hand, initial encounter for closed fracture (principal); X58.XXXA Exposure to other specified factors, initial encounter; Y93.9 Activity, unspecified; Y92.9 Unspecified place or not applicable
CPT/HCPCS: 29125; 73130; 99282

== ENCOUNTER 2023-06-01 18:40 | Emergency (ER) | payer MEDICAID, BC, SELFPAY ==
[2023-06-01 18:42] VITALS: BP 115/76; PULSE 75; RESP 18; TEMP 36.9; O2SAT 95; BMI 19.8
[2023-06-01 19:12] VITALS: BP 111/73; PULSE 72; RESP 16; O2SAT 98
--- NOTE | 2023-06-01 19:13 | EDS_ITS ---
HPI History of Present Illness Chief Complaint: Chest Pain Informant: patient Onset/Context/Timing Onset: Today Narrative Narrative: Patient presents secondary to chest pain. He states he got pain shortly after waking this morning in the center of his chest he does have some pain up around his right shoulder as well. He denies significant shortness of breath. He does have a history of sickle cell but states he has never had pain in his chest with a sickle cell crisis. 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 [facility] Medical History (Updated 06/01/23 @ 22:[address] Nneka Alfonso MD) Sickle cell disease Home Medications NK 06/01/23 [History Last Taken Unknown] Allergy/AdvReac Type Severity Reaction Status Date / Time No Known Allergies Allergy Verified 06/01/23 18:42 Social History Smoking Status: Current every day smoker tobacco type: cigarettes and e-cigare ttes ROS ROS ED Constitutional Constitutional ED: Denies chills or fever(s) Eyes Eyes: Denies change in vision or discharge from eye(s) ENT ENT ED: Denies discharge from eye(s), rhinorrhea or sore throat Cardiovascular Cardiovascular: Reports chest pain; Denies palpitations Respiratory/Chest Respiratory/Chest: Denies cough or dyspnea Gastrointestinal Gastrointestinal: Denies abdominal pain, nausea or vomiting Genitourinary Genitourinary ED: Denies dysuria Musculoskeletal Musculoskeletal: Denies back pain or extremity pain Integumentary Denies Abrasions or rash Neurologic Neurologic: Denies headache(s) or weakness Psychiatric Psychiatric: Denies anxiety or depression Allergic/Immunologic Allergic/Immunologic ED: Denies lip swelling or urticaria EXAM Physical Exam Const Vital Signs: 06/01/23 18:42 06/01/23 19:12 06/01/23 19:12 Temperature 98.4 F Temperature Source Temporal Pulse Rate 75 72 Respiratory Rate 18 16 Blood Pressure 115/76 111/73 Blood Pressure Mean 89 85 Pulse Ox 95 98 Oxygen Delivery Method Room Air Room Air Room Air Oxygen Flow Rate (L/min) 2 06/01/23 20:17 06/01/23 22:06 Temperature Temperature Source Pulse Rate 72 105 H Respiratory Rate 18 18 Blood Pressure 116/82 H 105/60 Blood Pressure Mean 93 Pulse Ox 98 Oxygen Delivery Method Oxygen Flow Rate (L/min) Positive well nourished and well developed General Appearance ED: well developed HEENT Reports normocephalic and head/scalp atraumatic Eyes PERRL and EOMs intact bilaterally Neck supple Chest Wall inspection of chest normal and palpation of chest normal Resp normal respiratory effort and clear to auscultation bilaterally Cardio regular rate and regular rhythm GI normal to inspection, nondistended, normoactive bowel sounds Palpation: soft Extremity normal to inspection Neuro oriented x3 and no sensory deficits noted Sensorium / Orientation: alert Motor Exam: strength 5/5 throughout Psych mental status grossly normal Skin no rashes or lesions noted MDM MDM MDM Narrative Medical decision making narrative: Patient placed on manager monitoring. Patient placed on oxygen and IV fluids. Labwork obtained to evaluate for leukocytosis, anemia, and electrolyte derangement. Chest x-ray obtained to evaluate for acute lung pathology, cardiac size, or mediastinal abnormality. EKG obtained to evaluate for cardiac arrhythmia/ischemia. History & Record Review Discussion w/independent historian: Patient Additional record(s) reviewed:: Prior inpatient record, Prior ED visit and Prior labs Lab Data Attestation: I reviewed the patient's lab results. Labs: Laboratory Results - last 24 hr 06/01/23 06/01/23 19:00 21:30 WBC 9.9 RBC 3.82 L Hgb 9.8 L Hct 27.9 L MCV 73.0 L MCH 25.7 L MCHC 35.1 RDW Std Deviation 46.1 H RDW Coeff of Marko 18.6 H Plt Count 300 MPV 8.6 Immature Gran % (Auto) 1.300 H Neut % (Auto) 46.1 L Lymph % (Auto) 39.3 [place] % (Auto) 6.1 Eos % (Auto) 6.6 H Baso % (Auto) 0.6 Absolute Neuts (auto) 4.6 Absolute Lymphs (auto) 3.90 Nucleated RBC % 8.7 H Differential Comment SCANNED Polychromasia 1+ Hypochromasia 3+ Poikilocytosis 2+ Sickle Cells 1+ Target Cells 1+ [place] Bodies RARE Schistocytes RARE Retic Count 8.76 H Immature Retic Fraction 28.50 H Retic Hgb Equivalent 25.1 L D-Dimer Quant (PE/DVT) 0.96 H* Sodium 142 Potassium 3.7 Chloride 112 H Carbon Dioxide 25.0 Anion Gap 5 BUN 7 Creatinine 0.80 Estim Creat Clear Calc 117.33 Est GFR (MDRD) Af Amer 142 Est GFR (MDRD) Non-Af 117 BUN/Creatinine Ratio 8.8 L Glucose 88 Calcium 8.3 L Troponin I High Sens < 3 L < 3 L Radiography Chest X-Ray - ED: 1 View, Read by ED Physician, Normal, Heart, Lungs and Mediastinum Diagnostic Testing: Clinical Impression(s) from Imaging Studies Chest X-Ray 06/01/23 19:20 IMPRESSION: No radiographic evidence of acute cardiopulmonary disease. Electronically Signed: Duc Bray MD at 20:02 EDT , Chest CTA 06/01/23 20:08 IMPRESSION: No acute findings in the visualized arteries of the chest. Electronically Signed: Duc Bray MD at 21:17 EDT , EKG Initial EKG: Attestation: I personally reviewed and interpreted this EKG as follows: Interpretation: Sinus Rhythm (Sinus at 71 with no acute ischemia.) Treatment and Re-Evaluation :: Patient had taken Advil prior to arrival. He was given morphine and Zofran on arrival. CBC was normal white count at 9.9 with a hemoglobin of 9.8. Prior labs for comparison are from 3-1/2 years ago and at that time his hemoglobin was 8.2. Patient does have 1+ sickle cells and rare schistocytes. His retake count is elevated at 8.76. His D-dimer is elevated at 0.96. Chemistry studies are unremarkable with normal renal function. Initial troponin is less than 3. Portable chest x-ray per my interpretation reveals no acute abnormalities. Radiology interpretation is reviewed and agrees. Patient is sent for a CTA of the chest and this reveals no acute findings. Patient was given a dose of Dilaudid for continued pain. Repeat troponin was drawn but before results were available patient decided that he no longer wanted to stay in the emergency room and was tired of waiting. He left the emergency room prior to completion of his test results. Repeat troponin and ultimately returns at less than 3. My initial plan had been to admit the patient for sickle cell pain crisis, however patient left the emergency room prior to completion of his care. Patient does not have evidence of acute chest syndrome. Discharge Plan Triage Chief Complaint: Chest Pain ED Provider: Nneka Alfonso Dx/Rx/DC Orders Clinical Impression: Chest pain, Sickle cell pain crisis Prescriptions: No Action NK Primary Care Provider: Damari Calixto Referrals: Care Physician,No Primary [Non-Staff] - Disposition Disposition: Home, Self Care Discharge Date/Time: 06/01/23 22:07
[2023-06-01] MEDS: Aspirin 81 MG TAB.CHEW 324 MG PO (19:19)
[2023-06-01] MEDS: Morphine 4 MG/ML Syringe IV (19:20)
[2023-06-01] MEDS: Ondansetron 4 MG/2 ML Vial IV (19:20)
--- NOTE | 2023-06-01 19:20 | RAD_ITS ---
EXAM: XR CHEST, 1 VIEW CLINICAL INDICATION: chest pain TECHNIQUE: Frontal view of the chest. COMPARISON: No relevant prior studies available. FINDINGS: LUNGS AND PLEURAL SPACES: Unremarkable. No consolidation or edema. No pneumothorax. No effusion. HEART: Unremarkable. Cardiac silhouette not enlarged. MEDIASTINUM: Central airways and mediastinal contour are unremarkable. BONES/JOINTS: Unremarkable. SOFT TISSUES: Unremarkable. RAD/Chest 1 View (Portable) IMPRESSION: No radiographic evidence of acute cardiopulmonary disease. Electronically Signed: Duc Bray MD at 20:02 EDT ,
[2023-06-01] MEDS: 0.9% Normal Saline 1,000 ML 150 ML IV (19:26)
[2023-06-01 19:32] LABS: Absolute Neutrophil Count 4.6 X10^3/uL (2.0-7.7); Basophil# 0.06 X10^3/uL; Basophil% 0.6 % (0-1); Eosinophil# 0.66 X10^3/uL; Eosinophils% 6.6 % (0-5); Hematocrit 27.9 % (40-54); Hemoglobin 9.8 g/dL (13.0-16.5); Lymphocyte % 39.3 % (19-41); Mean Corp Hgb Conc 35.1 g/dL (32-36); Mean Corpuscular Hgb 25.7 pg (27.0-32.0); Mean Platelet Vol. 8.6 fl (6.2-12.0); Monocyte# 0.61 X10^3/uL; Monocyte% 6.1 % (0-10); NRBC Flagged by Analyzer 8.7 % (0-5); Neutrophil # 4.57 X10^3/uL (2.7-7.7); Neutrophil % 46.1 % (47-70); POSITIVE COUNT YES; POSITIVE MORPHOLOGY YES; Platelet Count 300 K/mm3 (150-450); RBC Distribution Width CV 18.6 % (11.6-14.6); RBC Distribution Width SD 46.1 fl (35.1-43.9); RET-HE 25.1 pg (30-35); Red Blood Count 3.82 M/mm3 (4.6-6.2); Reticulocyte Count 8.76 % (0.5-1.5); White Blood Count 9.9 K/mm3 (4.4-11.0)
[2023-06-01 19:42] LABS: Anion Gap 5 (5-15); BUN 7 mg/dL (7-18); BUN/Creat Ratio 8.8 RATIO (10-20); Calcium,Total 8.3 mg/dL (8.5-10.1); Chloride 112 mmol/L (98-107); EST Glomerular Filtration Rate 117 mL/min (>60); Est Glom Filt Rate - Afr Amer 142 mL/min (>60); Estimated Creatinine Clearance 117.33 ml/min; Glucose 88 mg/dL (74-106); Potassium 3.7 mmol/L (3.5-5.1); Sodium Level 142 mmol/L (136-145); Troponin-I HS (w/2H Reflex) < 3 pg/mL (3.0-78.0)
[2023-06-01 19:54] LABS: D-Dimer Quantitative (DVT/PE) 0.96 FEU/ug/m (0.27-0.49)
[2023-06-01 20:03] LABS: Differential Indicated SCAN CRITERIA MET
--- NOTE | 2023-06-01 20:08 | CT_ITS ---
EXAM: CT ANGIOGRAPHY CHEST WITHOUT AND WITH INTRAVENOUS CONTRAST CLINICAL INDICATION: chest pain TECHNIQUE: Helically acquired angiography images were obtained of the chest without and with intravenous contrast. This CT exam was performed using one or more of the following dose reduction techniques: automated exposure control, adjustment of the mA and/or kV according to patient size, and/or use of iterative reconstruction technique. MIP reconstructed images were created and reviewed. CONTRAST: IV 100mL [id number] COMPARISON: No relevant prior studies available. FINDINGS: PULMONARY ARTERIES: Unremarkable. Normal in caliber. No evidence of pulmonary embolism. AORTA: Unremarkable. Normal in caliber. No evidence of dissection. GREAT VESSELS OF AORTIC ARCH: Unremarkable. Normal in caliber. No evidence of dissection. LUNGS AND PLEURAL SPACES: There is minimal scarring in the lung bases. No mass. No pleural effusion or thickening. No pneumothorax. HEART: Unremarkable. Heart size is normal. No pericardial effusion. No significant coronary artery calcifications. MEDIASTINUM: Unremarkable. No mediastinal or hilar adenopathy. Esophagus is unremarkable. No hiatal hernia. THYROID: Unremarkable. No thyroid lesions. BONES/JOINTS: Unremarkable. No suspicious lytic or blastic abnormality. CT/CTA Chest W/WO Contrast IMPRESSION: No acute findings in the visualized arteries of the chest. Electronically Signed: Duc Bray MD at 21:17 EDT ,
[2023-06-01 20:17] VITALS: BP 116/82; PULSE 72; RESP 18
[2023-06-01] MEDS: HYDROmorphone 0.5 MG/0.5 ML SYRINGE IV (20:31)
[2023-06-01 20:32] LABS: Differential Comment SCANNED; Poikilocytosis 2+
[2023-06-01 20:33] LABS: Howell-Jolly Body RARE; Hypochromasia 3+; Polychromasia 1+; Schistocytes RARE; Target Cells 1+
[2023-06-01 20:34] LABS: Sickle 1+
[2023-06-01 21:20] LABS: Reflex Troponin-HS? (from REC) Y
--- NOTE | 2023-06-01 21:33 | NURSING ---
pt frequently on his call light c/o his care.feels we do not know how to treat sickel cell pt's and doesn't understand why he can not get as much Dilaudid as he wants. Assured pt that this doctor and this nurse is well versed on care of pt's with these conditions. made him aware that this pt just had labs drawn to address chest pain since that is what he came in for.pt stated that he was getting pissed off. empathy given.
[2023-06-01 22:05] LABS: Troponin-I HS < 3 pg/mL (3.0-78.0)
[2023-06-01 22:06] VITALS: BP 105/60; PULSE 105; RESP 18; O2SAT 98
== END 2023-06-01 22:07 | disposition home or self-care (01) ==
PROVIDERS: Emergency Provider Emergency Medicine; PCP Radiology Diagnostic Radiology; Visit Provider Emergency Medicine
DX: R07.9 Chest pain, unspecified (principal); D57.00 Hb-SS disease with crisis, unspecified; F17.210 Nicotine dependence, cigarettes, uncomplicated; F17.290 Nicotine dependence, other tobacco product, uncomplicated
CPT/HCPCS: 71045; 71275; 80048; 84484; 85025; 85045; 85379; 93005; 96374; 96375; 99284; J7030; Q9967; A4216; J2405

== ENCOUNTER 2023-06-02 06:56 | Observation (INO) | payer BC, MEDICAID, SELFPAY ==
[2023-06-02 06:56] VITALS: BP 129/86; PULSE 72; RESP 14; TEMP 36.4; O2SAT 96; BMI 19.3
--- NOTE | 2023-06-02 07:19 | EKG12_ITS ---
Test Reason : CP Blood Pressure : / mmHG Vent. Rate : 071 BPM Atrial Rate : 071 BPM P-R Int : 182 ms QRS Dur : 102 ms QT Int : 404 ms P-R-T Axes : 077 049 057 degrees QTc Int : 439 ms Normal sinus rhythm Incomplete right bundle branch block Minimal voltage criteria for LVH, may be normal variant ( Sokolow-Luo ) Borderline ECG Confirmed by MEHREEN JIMENEZ ([id number]), medical transcription editor SPENCER LEACH ([id number]) on 06/02/2023 11:34:21 AM Referred By: Karina Confirmed By:MEHREEN JIMENEZ
--- NOTE | 2023-06-02 07:21 | EDS_ITS ---
HPI History of Present Illness Chief Complaint: Back Informant: patient Narrative Narrative: Patient with a history of sickle cell anemia, he was seen here last night for chest pain but left prior to test being resulted, after receiving pain medications. States his chest is not bothering him anymore but since 1 in the morning he has been having pain throughout his entire back, comes around to his upper abdomen as well. He does not have any pain in his extremities, dyspnea, nausea, vomiting, or any other systemic symptoms. Hurts more to move. States he is really in severe pain. Dilaudid really helped his chest feel better last night. Presents around 7 AM. Per other records he is not currently seeing a jute bag clipper or taking any medications. [facility] Medical History Sickle cell disease Home Medications NK 06/01/23 [History Last Taken Unknown] Allergy/AdvReac Type Severity Reaction Status Date / Time No Known Allergies Allergy Verified 06/01/23 18:42 Social History Smoking Status: Current every day smoker tobacco type: cigarettes and e- cigarettes ROS ROS ED Constitutional Constitutional ED: Denies chills or fever(s) Eyes Eyes: Denies change in vision or diplopia ENT ENT ED: Denies rhinorrhea or sore throat Cardiovascular Cardiovascular: Denies chest pain or palpitations Respiratory/Chest Respiratory/Chest: Denies cough or dyspnea Gastrointestinal Gastrointestinal: Reports abdominal pain; Denies diarrhea, nausea or vomiting Genitourinary Genitourinary ED: Denies dysuria or hematuria Musculoskeletal Musculoskeletal: Reports back pain; Denies neck pain Integumentary Denies abscess or rash Neurologic Neurologic: Denies headache(s), paresthesias or weakness Psychiatric Psychiatric: Reports anxiety; Denies suicidal thoughts EXAM Physical Exam Const Vital Signs: 06/02/23 06:56 06/02/23 07:20 Temperature 97.6 F L Temperature Source Temporal Pulse Rate 72 Respiratory Rate 14 Blood Pressure 129/86 H Blood Pressure Mean 100 Pulse Ox 96 Oxygen Delivery Method Room Air Room Air Positive well nourished and well developed General Appearance ED: well developed and NAD HEENT Reports moist mucous membranes normocephalic and atraumatic Eyes PERRL and EOMs intact bilaterally Neck full ROM and supple Resp normal respiratory effort and clear to auscultation bilaterally Cardio regular rate, regular rhythm and no murmurs Rate: Negative for tachycardic GI non-tender and non-distended Auscultation: normoactive bowel sounds Palpation: soft Back/Spine no CVA tenderness Back/Spine Narrative: Nontender, painful range of motion but able to move around without apparent difficulty. Normal inspection no rash. General Back: other FROM Extremity normal to inspection General Extremety ED: Negative for edema, pulses abnormal or tenderness General Extremity: Negative for edema or pulses abnormal Neuro oriented x3, CN's II-XII intact bilaterally and no sensory deficits noted Sensorium / Orientation: awake and alert Motor Exam: strength 5/5 throughout Psych Psych Narrative: Anxious and a little agitated due to being in pain. Skin no rashes or lesions noted and no wounds MDM MDM MDM Narrative Medical decision making narrative: I repeated some of his labs I do not think we need to repeat his reticulocyte count and it was elevated less than 12 hours ago, he is no more anemic than he was, his bilirubin is elevated likely indicating some hemolysis, I will send an indirect/direct in order to sort that out, but after Dilaudid 2 mg, he still is in pain. Plan to admit at least for pain control. The rest of his liver enzymes are normal, his abdomen is benign I am not suspecting an acute biliary obstruction here or necessarily other intra-abdominal process. History & Record Review Additional record(s) reviewed:: Prior ED visit and Prior labs Lab Data Attestation: I reviewed the patient's lab results. Labs: Laboratory Results - last 24 hr 06/02/23 06/02/23 07:51 09:00 WBC CONTENT COORDINATOR Corrected WBC 11.4 H RBC 3.88 L Hgb 9.9 L Hct 28.4 L MCV 73.2 L MCH 25.5 L MCHC 34.9 RDW Std Deviation 46.7 H RDW Coeff of Marko 18.8 H Plt Count 291 MPV 8.5 Neut % (Auto) Not Reportable Absolute Neuts (auto) 6.6 Absolute Lymphs (auto) 3.70 Total Counted 100 Neutrophils % (Manual) 58 Lymphocytes % (Manual) 33 Monocytes % (Manual) 3 Eosinophils % (Manual) 2 Metamyelocytes % 1 Myelocytes % 3 H Nucleated RBCs/100 WBC 14 H Diff Path Review May foll Polychromasia 1+ Hypochromasia 2+ Anisocytosis 2+ Tear Drop Cells 1+ Thapa-[place] Bodies RARE Sodium 140 Potassium 3.9 Chloride 109 H Carbon Dioxide 26.0 Anion Gap 5 BUN 7 Creatinine 0.83 Estim Creat Clear Calc 110.17 Est GFR (MDRD) Af Amer 136 Est GFR (MDRD) Non-Af 112 BUN/Creatinine Ratio 8.5 L Glucose 96 Calcium 8.6 Total Bilirubin 3.20 H AST 33 ALT 21 Alkaline Phosphatase 102 Troponin I High Sens 8 Total Protein 7.2 Albumin 4.2 Globulin 3.0 Albumin/Globulin Ratio 1.4 Urine Color Yellow Urine Clarity Clear Urine pH 7.0 Ur Specific [place] 1.010 Urine Protein 15 H Urine Glucose (UA) Normal Urine Ketones 5 H Urine Occult Blood 10 H Urine Nitrite Negative Urine Bilirubin Negative Urine Urobilinogen 1 H Ur Leukocyte Esterase 25 H Urine RBC 0-5 SEEN Urine WBC 0-5 SEEN Ur Squamous Epith Cells 0-5 SEEN Urine Bacteria RARE Urine Mucus 0 SEEN Rhythm Strip Rhythm Strip: Sinus Rhythm Rate: 60 Ectopy: None EKG Initial EKG: Attestation: I personally reviewed and interpreted this EKG as follows: Interpretation: No Acute Injury Pattern and Sinus Bradycardia (otherwise nml EKG) Discharge Plan Triage Chief Complaint: Back ED Provider: Renato Buckley Dx/Rx/DC Orders Clinical Impression: Sickle cell pain crisis Prescriptions: No Action NK Primary Care Provider: Damari Calixto Referrals: Damari Calixto MD [Primary Care Provider] - Disposition Disposition: Acute Care [facility]
[2023-06-02] MEDS: 0.9% Normal Saline 1,000 ML 999 ML IV (07:49)
[2023-06-02] MEDS: HYDROmorphone 1 MG/ML Syringe 2 MG IV (07:50)
[2023-06-02 07:57] LABS: Hematocrit 28.4 % (40-54); Hemoglobin 9.9 g/dL (13.0-16.5); Mean Corp Hgb Conc 34.9 g/dL (32-36); Mean Corpuscular Hgb 25.5 pg (27.0-32.0); Mean Corpuscular Volume 73.2 fL (80-94); Mean Platelet Vol. 8.5 fl (6.2-12.0); POSITIVE COUNT YES; POSITIVE MORPHOLOGY YES; Platelet Count 291 K/mm3 (150-450); RBC Distribution Width CV 18.8 % (11.6-14.6); RBC Distribution Width SD 46.7 fl (35.1-43.9); Red Blood Count 3.88 M/mm3 (4.6-6.2)
[2023-06-02 08:01] LABS: Differential Indicated MANUAL DIFF
[2023-06-02 08:15] LABS: ALB/GLOB Ratio 1.4 RATIO (0.9-2.4); AST(SGOT) 33 U/L (15-37); Alanine Aminotransfer ALT/SGPT 21 U/L (16-61); Albumin, Serum 4.2 g/dL (3.2-5.0); Alkaline Phosphatase 102 U/L (45-117); Anion Gap 5 (5-15); BUN 7 mg/dL (7-18); BUN/Creat Ratio 8.5 RATIO (10-20); Calcium,Total 8.6 mg/dL (8.5-10.1); Chloride 109 mmol/L (98-107); Creatinine, Serum 0.83 mg/dL (0.70-1.30); EST Glomerular Filtration Rate 112 mL/min (>60); Est Glom Filt Rate - Afr Amer 136 mL/min (>60); Estimated Creatinine Clearance 110.17 ml/min; Glucose 96 mg/dL (74-106); Potassium 3.9 mmol/L (3.5-5.1); Protein, Total 7.2 g/dL (6.4-8.2); Sodium Level 140 mmol/L (136-145); Troponin-I HS 8 pg/mL (3.0-78.0)
[2023-06-02 08:30] LABS: Corrected WBC 11.4 K/mm3 (4.4-11.0); Eosinophil 2 % (0-5); Lymphocyte 33 % (19-41); Metamyelocyte 1 % (0-1); Monocyte 3 % (0-10); Myelocyte 3 % (0-0); Neutrophil-Segmented 58 % (47-70); Nucleated Red Bld Cells,Manual 14 % (0-5); Total Cells Counted 100 (MANUAL DIFF)
[2023-06-02 08:31] LABS: Anisocytosis 2+; Hypochromasia 2+
[2023-06-02 08:32] LABS: Howell-Jolly Body RARE; Polychromasia 1+
[2023-06-02 08:34] LABS: Tear Drop Cell 1+
[2023-06-02 08:36] LABS: Absolute Neutrophil Count 6.6 X10^3/uL (2.0-7.7)
[2023-06-02 09:04] LABS: Mucous, Urine 0 SEEN /hpf (<or=2+)
[2023-06-02 09:11] LABS: Color, Urine Yellow (Yellow); Glucose, Dipstick Normal (Normal); Ketone-Dipstick 5 mg/dl (Negative); Leukocyte Esterase-Dipstick 25 /ul (Negative); Nitrite-Dipstick Negative (Negative); Occult Blood-Urine 10 /ul (Negative); Protein-Dipstick 15 mg/dl (Negative); Urine Bilirubin Dipstick Negative (Negative); Urine Clarity Clear (Clear); Urine Urobilinogen 1 mg/dl (Normal)
[2023-06-02 09:24] LABS: Red Blood Cells-Urine 0-5 SEEN /hpf (0-5); Squamous Epithelial Cells - UA 0-5 SEEN /hpf (0-5); White Blood Cells 0-5 SEEN /hpf (0-5)
[2023-06-02 09:26] LABS: Bacteria RARE /hpf (None Seen)
--- NOTE | 2023-06-02 09:54 | NURSING ---
DR JAIN FOR DR CONWAY
--- NOTE | 2023-06-02 09:59 | NURSING ---
MED SURG CRISTOBAL SICKLE CELL PAIN CRISIS
--- NOTE | 2023-06-02 10:01 | PCM.HP.STD ---
HPI - General General Date of Admission: 06/02/23 Date of Service: 06/02/23 Chief Complaint: Chest pain and back pain. HPI Narrative MEHDI TRAN, is a 33 M with history of congenital sickle cell disease came to ED yesterday with chest pain. Received no apparent chest pain during prior sickle cell crisis. Was advised admission but he refused. CTA chest did not show acute finding. His 2 troponins last night but he left AGAINST MEDICAL ADVICE prior to the result of the second troponin. He came back today with back pain. He states it hurts all over in the back with same intensity. He denies duplicity in intensity at the specific location but diffusely 9/10 intensity. Patient was given IV Dilaudid and IV fluid and further admitted. Twelve-lead EKG reviewed shows sinus bradycardia 57 with minimal criteria for LVH. QTc 202 ms. Previous EKG on 15 November 2019 reviewed pentetate sinus rhythm 60 beats with sinus arrhythmia and LVH [facility] Medical History HIV (human immunodeficiency virus infection) Sickle cell disease Home Medications [id number] ala PO hiv 06/02/23 [History Last Taken 06/01/23] Allergy/AdvReac Type Severity Reaction Status Date / Time No Known Allergies Allergy Verified 06/01/23 18:42 Family History Brother Sickle cell anemia Sister Sickle cell anemia Father Sickle cell anemia Mother Sickle cell anemia Social History Smoking Status: Current every day smoker tobacco type: cigarettes and e-cigarettes ROS ROS Narrative Constitutional: Reports fatigue and weakness. No fever. HEENT: Reports systems reviewed and no addt'l complaints, except as documented Respiratory/Chest: No acute shortness of breath or respiratory distress or wheezing. CVS: Midsternal chest pain. Gastrointestinal: Denies coffee ground emesis, hematemesis or vomiting Genitourinary: Denies burning urination or new urinary tract symptoms Musculoskeletal/back pain: Severe pain in the upper back and lower back. ROM restricted. Neurologic: Denies seizure-like symptoms. Acute or strokelike symptoms. skin: No ulcer. No rash Endocrinology: Reports systems reviewed and no addt'l complaints, except as documented Hematologic/Lymphatic: Reports systems reviewed and no addt'l complaints, except as documented Rest 14 ROS are negative except as mentioned in HPI Vital Signs Vital Signs Vital Signs: 06/02/23 06:56 06/02/23 07:20 Temperature 97.6 F L Temperature Source Temporal Pulse Rate 72 Respiratory Rate 14 Blood Pressure 129/86 H Blood Pressure Mean 100 Pulse Ox 96 Oxygen Delivery Method Room Air Room Air Weight Weight: 138 lb 3.677 oz Body Mass Index (BMI) 19.3 Physical Exam Narrative General: Alert, Oriented x3, Cooperative HEENT: Atraumatic, PERRLA, EOMI, Normocephalic Oral: Oral mucosa moist. No Gingival or Mucosal Lesions/ Ulcerations Neck: Supple, No JVD, Negative Carotid Bruits Lungs: Air entry diminished in bilateral lung bases. No crepitation/rhonchi Cardiovascular: Regular rate, Regular Rhythm, Normal S1, Normal S2, No murmurs Abdomen: Bowel Sounds Present, Soft, Non Tender, Non-Distended : No renal angle tenderness. No suprapubic tenderness. Extremities: No edema, Capillary Refill Less than 3 Seconds Skin: No rashes, No breakdown Musculoskeletal/spine: Tenderness present in lumbar spine midline and paraspinal muscles. ROM restricted. No acute tenderness in the small finger joints or wrist. Neurological: Cranial nerves II-XII grossly intact, DTR 2+/4. No acute focal neurological deficit. Psych/Mental Status: Normal Affect, Appropriate. Results Lab / Micro Data 06/02/23 07:51 06/02/23 07:51 Labs: Laboratory Results - last 24 hr 06/02/23 07:51: WBC ENGINEER PROCESS, Corrected WBC 11.4 H, RBC 3.88 L, Hgb 9.9 L, Hct 28.4 L, MCV 73.2 L, MCH 25.5 L, MCHC 34.9, RDW Std Deviation 46.7 H, RDW Coeff of Marko 18.8 H, Plt Count 291, MPV 8.5, Neut % (Auto) Not Reportable, Absolute Neuts (auto) 6.6, Absolute Lymphs (auto) 3.70, Total Counted 100, Neutrophils % (Manual) 58, Lymphocytes % (Manual) 33, Monocytes % (Manual) 3, Eosinophils % (Manual) 2, Metamyelocytes % 1, Myelocytes % 3 H, Nucleated RBCs/100 WBC 14 H, Diff Path Review May foll, Polychromasia 1+, Hypochromasia 2+, Anisocytosis 2+, Tear Drop Cells 1+, Thapa-[place] Bodies RARE, Sodium 140, Potassium 3.9, Chloride 109 H, Carbon Dioxide 26.0, Anion Gap 5, BUN 7, Creatinine 0.83, Estim Creat Clear Calc 110.17, Est GFR (MDRD) Af Amer 136, Est GFR (MDRD) Non-Af 112, BUN/Creatinine Ratio 8.5 L, Glucose 96, Calcium 8.6, Total Bilirubin 3.20 H, AST 33, ALT 21, Alkaline Phosphatase 102, Troponin I High Sens 8, Total Protein 7.2, Albumin 4.2, Globulin 3.0, Albumin/Globulin Ratio 1.4 06/02/23 09:00: Urine Color Yellow, Urine Clarity Clear, Urine pH 7.0, Ur Specific [place] 1.010, Urine Protein 15 H, Urine Glucose (UA) Normal, Urine Ketones 5 H, Urine Occult Blood 10 H, Urine Nitrite Negative, Urine Bilirubin Negative, Urine Urobilinogen 1 H, Ur Leukocyte Esterase 25 H, Urine RBC 0-5 SEEN, Urine WBC 0-5 SEEN, Ur Squamous Epith Cells 0-5 SEEN, Urine Bacteria RARE, Urine Mucus 0 SEEN Rhythm Strip Rhythm Strip: Sinus Rhythm Rate: 60 Ectopy: None Assessment & Plan Assessment/Plan (1) Sickle cell pain crisis: PLAN: Plan 1. Sickle cell crisis/vaso-occlusive crisis: Patient is being admitted in PCU as MedSurg patient. Patient had 3 serial troponins negative therefore ACS ruled out. CTA chest did not show acute finding therefore unlikely acute chest syndrome. IV fluid. Pain control with opioids. 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 History of chronic sickle cell anemia: The patient hemoglobin is 9.9 g. MCV 73 low, MCH RDW elevated 18.8 therefore status chronic iron deficiency anemia. Platelet count normal. Monitor CBC. 3. Mild sinus bradycardia, asymptomatic: Monitor vitals. 4. DVT prophylaxis, low risk. Bilateral SCDs Full code. Patient does not have advanced directive or power of contracts attorney for health. Charges/Coding Visit Charges Inpatient E&M: 36440 Init Hosp L3
[2023-06-02] MEDS: HYDROmorphone 1 MG/ML Syringe IV (10:07)
[2023-06-02 10:34] LABS: Bilirubin, Direct 0.51 mg/dL (0.00-0.30); Magnesium 2.2 mg/dL (1.6-2.6)
[2023-06-02 10:41] LABS: Phosphorus 2.6 mg/dL (2.5-4.9)
[2023-06-02 10:56] VITALS: RESP 18
[2023-06-02 11:25] VITALS: BP 132/74; PULSE 77; RESP 18; TEMP 36.4; O2SAT 94
[2023-06-02 11:33] VITALS: BMI 19.5
[2023-06-02 11:44] VITALS: BP 115/73; PULSE 75; RESP 16; TEMP 36.4; O2SAT 93
[2023-06-02] MEDS: Pantoprazole Sodium 40 MG Tablet PO (13:08)
[2023-06-02] MEDS: KCL 20MEQ in 0.9% NS 20 MEQ/1,000 ML IV.SOLN. 100 MEQ IV (13:08)
[2023-06-02] MEDS: HYDROmorphone 0.5 MG/0.5 ML SYRINGE IV ×4 (13:08→22:43)
[2023-06-02 14:39] LABS: Pathologist Review Reviewed
[2023-06-02] MEDS: 0.9% Saline Lock 10 ML Syringe IV ×3 (16:12→22:45)
[2023-06-02 17:52] VITALS: BP 123/83; PULSE 91; RESP 16; TEMP 36.7; O2SAT 92
[2023-06-02] MEDS: KCL 20MEQ in 0.9% NS 20 MEQ/1,000 ML IV.SOLN. 150 MEQ IV (21:29)
[2023-06-02] MEDS: oxyCODONE 5 MG Tablet PO (21:44)
[2023-06-02 22:42] VITALS: BP 129/72; PULSE 81; RESP 16; TEMP 36.5; O2SAT 96
[2023-06-03] MEDS: 0.9% Saline Lock 10 ML Syringe IV ×5 (01:42→12:38)
[2023-06-03] MEDS: HYDROmorphone 1 MG/ML Syringe IV ×3 (01:44→12:38)
--- NOTE | 2023-06-03 02:45 | NURSING ---
Dr. Sanchez was notified of pt continued rating pain at 10/10 states oxycodone is not helping pain and dose of 1 mg is not lasting long enough. Order to stop oxycodone and increase pain medication dilaudid to 1-2 mg was received
[2023-06-03 03:20] VITALS: O2SAT 86
[2023-06-03 03:21] VITALS: BP 126/76; PULSE 88; RESP 18; TEMP 36.6; O2SAT 93
[2023-06-03] MEDS: Mag Hydrox/Al Hydrox/Simeth 30 ML UDC PO (04:03)
[2023-06-03 04:44] VITALS: O2SAT 93
[2023-06-03] MEDS: HYDROmorphone 1 MG/ML Syringe 2 MG IV ×2 (06:14→09:35)
[2023-06-03 06:29] LABS: Absolute Lymphocyte Count 2.17 X10^3/uL (0.83-4.51); Basophil# 0.06 X10^3/uL; Basophil% 0.4 % (0-1); Eosinophils% 0.7 % (0-5); Hematocrit 28.3 % (40-54); Hemoglobin 9.5 g/dL (13.0-16.5); Lymphocyte # 2.17 X10^3/ul (0.83-4.51); Lymphocyte % 16.1 % (19-41); Mean Corp Hgb Conc 33.6 g/dL (32-36); Mean Corpuscular Hgb 24.7 pg (27.0-32.0); Mean Corpuscular Volume 73.7 fL (80-94); Mean Platelet Vol. 8.6 fl (6.2-12.0); Monocyte# 0.77 X10^3/uL; Monocyte% 5.7 % (0-10); NRBC Flagged by Analyzer 15.4 % (0-5); Neutrophil # 10.03 X10^3/uL (2.7-7.7); Neutrophil % 74.5 % (47-70); POSITIVE COUNT YES; POSITIVE MORPHOLOGY YES; Platelet Count 211 K/mm3 (150-450); RBC Distribution Width SD 50.4 fl (35.1-43.9); Red Blood Count 3.84 M/mm3 (4.6-6.2); White Blood Count 13.5 K/mm3 (4.4-11.0)
[2023-06-03 06:33] LABS: Differential Indicated SCAN CRITERIA MET
[2023-06-03 06:56] LABS: Differential Comment SCANNED
[2023-06-03 06:58] LABS: ALB/GLOB Ratio 1.3 RATIO (0.9-2.4); AST(SGOT) 88 U/L (15-37); Alanine Aminotransfer ALT/SGPT 28 U/L (16-61); Albumin, Serum 3.9 g/dL (3.2-5.0); Alkaline Phosphatase 131 U/L (45-117); Anion Gap 6 (5-15); BUN 8 mg/dL (7-18); BUN/Creat Ratio 12.5 RATIO (10-20); Calcium,Total 8.7 mg/dL (8.5-10.1); Chloride 106 mmol/L (98-107); Creatinine, Serum 0.64 mg/dL (0.70-1.30); EST Glomerular Filtration Rate 152 mL/min (>60); Est Glom Filt Rate - Afr Amer 183 mL/min (>60); Estimated Creatinine Clearance 145.22 ml/min; Globulin 3.1 g/dL (2.2-4.2); Glucose 92 mg/dL (74-106); Potassium 4.1 mmol/L (3.5-5.1); Sodium Level 138 mmol/L (136-145)
[2023-06-03 09:35] VITALS: BP 135/95; PULSE 78; RESP 16; TEMP 36.8; O2SAT 98
[2023-06-03] MEDS: Pantoprazole Sodium 40 MG Tablet PO (09:36)
--- NOTE | 2023-06-03 10:40 | CASEMGMT ---
RN MARKEL Face to Face with patient for initial transition planning/care coordination assessment. RN CM introduced self and role at [facility]. Patient lying in bed, alert and oriented. Patient willing to participate in assessment and is able to answer all questions appropriately. Care providers, pharmacy, and demographics verified. Patient wishes to discharge home, denies need for home health at this time. Patient states he has no further needs or concerns at this time. CM to follow for discharge planning needs that may arise. PCP: Durga Specialists: Michelle pain management Preferred Pharmacy: [facility] Insurance: [employer] Prescription Benefit: yes Living Will/HPOA: none LNOK: Living Arrangements: Patient lives with in a 2 story home. Patient is independent and able to ambulate stairs. Transportation: self, DME/HHC: Patient has cane at home. No previous HHC. Disposition Plan: Patient to discharge home with family support and follow-up plans in place. Shamika CRAIN, RN, CM
--- NOTE | 2023-06-03 10:53 | PCM.DC ---
Discharge Instructions Diet Discharge Diet: No restrictions Activity Discharge Activity: Return to Normal Activity Weight Bearing Status: Weight bearing as tolerated Dressing / Incision Call your doctor if you observe: Fever of 101 or Higher, Coldness, Increased Pain, Numbness or Tingling, Change in Color, Inability to urinate, Inability to have a bowel movement, Shortness of breath, Dizziness, Fainting spells, Swelling in the ankles, Chest pain, Prolonged hiccupping, Increased palpitations (irregular heartbeat) and Calf discomfort Follow Up Care When: IN 2 WEEKS Test Results: Test results from this visit will be discussed in further detail at your follow-up appointment, if applicable. Discharge Plan Admission Admit Date/Time: 06/02/23 09:54 Primary Reason for Your Visit: Sickle cell crisis Attending Provider: Jose Champion Primary Care Provider: Damari Calixto Instructions Additional Instructions / Restrictions: Prescription given for ibuprofen on patient's request. Advised ibuprofen 800 mg every 6 hourly as needed only for 2 days and then 400 mg every 6 hourly as needed for moderate to severe pain. Discharge Orders/Prescriptions Prescriptions: New acetaminophen 325 mg Tablet 650 mg PO Q6H PRN PRN (Reason: Pain 1-10 Or Fever >100.7) Qty: 0 0RF tizanidine 2 mg Tablet 2 mg PO Q8H PRN PRN (Reason: Muscle Spasm) Qty: 30 0RF pantoprazole 40 mg Tablet,Delayed Release (Dr/Ec) 40 mg PO DAILY 30 Days Qty: 30 0RF ibuprofen 400 mg Tablet 800 mg PO Q6H PRN PRN (Reason: Pain Score 4-10) 30 Days Qty: 60 0RF Continued [id number]-[id number] ala [Biktarvy] PO Referrals / Follow Up: Damari Calixto MD [Primary Care Provider] - Disposition Disposition (needs filled in before D/C Order can be placed): Home, Self Care
[2023-06-03] MEDS: Ibuprofen 400 MG Tablet 800 MG PO (11:36)
[2023-06-03] MEDS: tiZANidine HCl 2 MG Tablet 4 MG PO (11:37)
[2023-06-03] MEDS: KCL 20MEQ in 0.9% NS 20 MEQ/1,000 ML IV.SOLN. 200 MEQ IV (11:39)
[2023-06-03 12:35] VITALS: BP 120/83; PULSE 90; RESP 18; TEMP 36.8; O2SAT 94
[2023-06-03 12:35] LABS: Pathologist Review Reviewed
--- NOTE | 2023-06-03 13:26 | PCM.DC.SUM ---
Providers Date of Admission: 06/02/23 Date of Discharge: 06/03/23 Primary Care Physician: Dr. Damari Calixto MD Reason For Visit: STADARD Diagnosis Discharge Diagnosis (1) Sickle cell pain crisis: Status: Acute Code(s): D57.00 - Hb-SS disease with crisis, unspecified Plan 33 gentleman evaluated for sickle cell crisis with severe pain started with midsternal chest pain and then upper back. No fever. 1. Sickle cell crisis/vaso-occlusive crisis: Patient is being admitted in PCU as MedSurg patient. Patient had 3 serial troponins negative therefore ACS ruled out. CTA chest did not show acute finding therefore unlikely acute chest syndrome. IV fluid. Pain control with opioids. Patient does not follow any real estate administrator or on prophylactic medications. 06/03: Patient home medications Biktarvy probably he has history of HIV. Advised to follow-up with real estate administrator in 2 weeks for prophylactic medication for sickle cell. 2. History of chronic sickle cell anemia: The patient hemoglobin is 9.9 g. MCV 73 low, MCH RDW elevated 18.8 therefore status chronic iron deficiency anemia. Platelet count normal. Monitor CBC. 06/03 repeat hemoglobin 9.5 g. Platelet count 211. Prescription for ferrous sulfate, folate and vitamin C given 3. Mild sinus bradycardia, asymptomatic: Monitor vitals. 4. DVT prophylaxis, low risk. Bilateral SCDs Full code. Patient does not have advanced directive or power of employee benefits attorney for health. Discharge medication reconciliation done. Discharge follow-up instructions completed. Discharge process discussed with the patient and all questions were answered to patient's satisfaction. Total time spent, exact 35 minutes on discharge meds reconciliation, examination, coordination of care with nurses and ancillary staff, review of imaging and blood test and discussion with the patient on follow-up instructions. Medications at Discharge Home Medications [id number]-[id number] ala PO hiv 06/02/23 acetaminophen 325 mg tablet 650 mg (2 x 325 mg) PO Q6H PRN PRN Pain 1-10 Or Fever >100.7 #0 tabs 06/03/23 ascorbic acid (vitamin C) 500 mg tablet 500 mg PO BID #60 tabs 06/03/23 ferrous sulfate 325 mg (65 mg iron) tablet,delayed release 325 mg PO DAILY #30 tabs 06/03/23 folic acid 1 mg tablet 1 mg PO DAILY #30 tabs 06/03/23 ibuprofen 400 mg tablet 800 mg (2 x 400 mg) PO Q6H PRN PRN Pain Score 4-10 30 days #60 tabs 06/03/23 pantoprazole 40 mg tablet,delayed release 40 mg PO DAILY 30 days #30 tabs 06/03/23 tizanidine 2 mg tablet 2 mg PO Q8H PRN PRN Muscle Spasm #30 tabs 06/03/23 Physical Exam Narrative Seen and examined on the day of discharge. General: Alert, Oriented x3, Cooperative HEENT: Atraumatic, PERRLA, EOMI, Normocephalic Oral: Oral mucosa moist. No Gingival or Mucosal Lesions/ Ulcerations Neck: Supple, No JVD, Negative Carotid Bruits Lungs: Air entry diminished in bilateral lung bases. No crepitation/rhonchi Cardiovascular: Regular rate, Regular Rhythm, Normal S1, Normal S2, No murmurs Abdomen: Bowel Sounds Present, Soft, Non Tender, Non-Distended : No renal angle tenderness. No suprapubic tenderness. Extremities: No edema, Capillary Refill Less than 3 Seconds Skin: No rashes, No breakdown Musculoskeletal/spine: Mild tenderness present in lumbar spine midline and paraspinal muscles. ROM restricted. No acute tenderness in the small finger joints or wrist. Neurological: Cranial nerves II-XII grossly intact, DTR 2+/4. No acute focal neurological deficit. Psych/Mental Status: Normal Affect, Appropriate. Weight / BMI Weight Weight: 140 lb 8 oz Body Mass Index (BMI) 19.5 ABG / Lab / Microbiology Data 06/03/23 06:08 06/03/23 06:08 Laboratory: Laboratory Results - last 24 hr 06/02/23 07:51: Diff Path Review Reviewed 06/03/23 06:08: WBC 13.5 H, RBC 3.84 L, Hgb 9.5 L, Hct 28.3 L, MCV 73.7 L, MCH 24.7 L, MCHC 33.6, RDW Std Deviation 50.4 H, RDW Coeff of Marko 20.0 H, Plt Count 211, MPV 8.6, Immature Gran % (Auto) 2.600 H, Neut % (Auto) 74.5 H, Lymph % (Auto) 16.1 L, [place] % (Auto) 5.7, Eos % (Auto) 0.7, Baso % (Auto) 0.4, Absolute Neuts (auto) 10.0 H, Absolute Lymphs (auto) 2.17, Nucleated RBC % 15.4 H, Differential Comment SCANNED, Diff Path Review Reviewed, Sodium 138, Potassium 4.1, Chloride 106, Carbon Dioxide 26.0, Anion Gap 6, BUN 8, Creatinine 0.64 L, Estim Creat Clear Calc 145.22, Est GFR (MDRD) Af Amer 183, Est GFR (MDRD) Non-Af 152, BUN/Creatinine Ratio 12.5, Glucose 92, Calcium 8.7, Total Bilirubin 4.10 H, AST 88 H, ALT 28, Alkaline Phosphatase 131 H, Total Protein 7.0, Albumin 3.9, Globulin 3.1, Albumin/Globulin Ratio 1.3 D/C Instructions Discharge Diet: No restrictions Weight Bearing Status: Weight bearing as tolerated Call your doctor if you observe: Fever of 101 or Higher, Coldness, Increased Pain, Numbness or Tingling, Change in Color, Inability to urinate, Inability to have a bowel movement, Shortness of breath, Dizziness, Fainting spells, Swelling in the ankles, Chest pain, Prolonged hiccupping, Increased palpitations (irregular heartbeat) and Calf discomfort When: IN 2 WEEKS Meaningful Use Info Meaningful Use Diagnoses (Choose all that apply): None applicable Discharge Plan Admission Admit Date/Time: 06/02/23 09:54 Primary Reason for Your Visit: Sickle cell crisis Attending Provider: Jose Champion Primary Care Provider: Damari Calixto Instructions Additional Instructions / Restrictions: Prescription given for ibuprofen on patient's request. Advised ibuprofen 800 mg every 6 hourly as needed only for 2 days and then 400 mg every 6 hourly as needed for moderate to severe pain. Discharge Orders/Prescriptions Prescriptions: New acetaminophen 325 mg Tablet 650 mg PO Q6H PRN PRN (Reason: Pain 1-10 Or Fever >100.7) Qty: 0 0RF tizanidine 2 mg Tablet 2 mg PO Q8H PRN PRN (Reason: Muscle Spasm) Qty: 30 0RF pantoprazole 40 mg Tablet,Delayed Release (Dr/Ec) 40 mg PO DAILY 30 Days Qty: 30 0RF ibuprofen 400 mg Tablet 800 mg PO Q6H PRN PRN (Reason: Pain Score 4-10) 30 Days Qty: 60 0RF folic acid 1 mg tablet 1 mg PO DAILY Qty: 30 3RF ascorbic acid (vitamin C) 500 mg tablet 500 mg PO BID Qty: 60 2RF ferrous sulfate 325 mg (65 mg iron) tablet,delayed release (DR/EC) 325 mg PO DAILY Qty: 30 2RF Continued [id number] ala [Biktarvy] PO Referrals / Follow Up: Damari Calixto MD [Primary Care Provider] - El Cardoza MD [Med Staff - Active Staff] - Within 2 Weeks (For sickle cell disease) Disposition Disposition (needs filled in before D/C Order can be placed): Home, Self Care Charges/Coding Visit Charges Inpatient E&M: 12431 Disch Hosp >30min
== END 2023-06-03 16:12 | disposition home or self-care (01) | DRG 812 ==
LOC: ED 09:48 → PCU 06-03 08:11
PROVIDERS: Admitting Provider Internal Medicine; Emergency Provider Emergency Medicine; PCP Radiology Diagnostic Radiology; Visit Provider Internal Medicine
DX: D57.00 Hb-SS disease with crisis, unspecified (principal); F17.210 Nicotine dependence, cigarettes, uncomplicated; R00.1 Bradycardia, unspecified; F17.290 Nicotine dependence, other tobacco product, uncomplicated
CPT/HCPCS: 36415; 80053; 81001; 82248; 83735; 84100; 84484; 85025; 93005; 96361; 96374; 96376; 97161; 97165; 99221; 99284; J7030; A4216; G0378

== ENCOUNTER 2023-08-08 20:27 | Emergency (ER) | payer BC, MEDICAID, SELFPAY ==
[2023-08-08 20:27] VITALS: BP 129/82; PULSE 71; RESP 18; TEMP 36.1; O2SAT 97
--- NOTE | 2023-08-08 22:44 | EDS_ITS ---
HPI History of Present Illness Chief Complaint: General Illness Detail of Chief Complaint: Sickle cell pain crisis Informant: patient and spouse/S.O. 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 Patient states he believes he had a sickle cell pain crisis in his shoulders and both legs. He was admitted to the hospital for a sickle cell pain crisis about 2 months ago. He denies any nausea, vomiting or diarrhea. He denies any fever or recent illness. Prior similar symptoms: Yes Recent Illness/Hospitalization: Yes PFSH PFS Medical History HIV (human immunodeficiency virus infection) Sickle cell disease Home Medications [id number] ala PO hiv 06/02/23 [History Last Taken 06/01/23] acetaminophen 325 mg tablet 650 mg (2 x 325 mg) PO Q6H PRN PRN Pain 1-10 Or Fever >100.7 #0 tabs 06/03/23 [Rx Last Taken Unknown] ascorbic acid (vitamin C) 500 mg tablet 500 mg PO BID #60 tabs 06/03/23 [Rx Last Taken Unknown] ferrous sulfate 325 mg (65 mg iron) tablet,delayed release 325 mg PO DAILY #30 tabs 06/03/23 [Rx Last Taken Unknown] folic acid 1 mg tablet 1 mg PO DAILY #30 tabs 06/03/23 [Rx Last Taken Unknown] ibuprofen 400 mg tablet 800 mg (2 x 400 mg) PO Q6H PRN PRN Pain Score 4-10 30 days #60 tabs 06/03/23 [Rx Last Taken Unknown] pantoprazole 40 mg tablet,delayed release 40 mg PO DAILY 30 days #30 tabs 06/03/23 [Rx Last Taken Unknown] tizanidine 2 mg tablet 2 mg PO Q8H PRN PRN Muscle Spasm #30 tabs 06/03/23 [Rx Last Taken Unknown] Allergy/AdvReac Type Severity Reaction Status Date / Time No Known Allergies Allergy Verified 08/08/23 20:27 Family History Brother Sickle cell anemia Sister Sickle cell anemia Father Sickle cell anemia Mother Sickle cell anemia Social History Smoking Status: Current every day smoker tobacco type: cigarettes and e- cigarettes ROS ROS ED ROS Narrative Denies recent illness. Review of Systems ROS Unobtainable: Denies due to encephalopathy or other Constitutional Constitutional ED: Denies chills or fever(s) Eyes Eyes: Denies blurry vision or change in vision ENT ENT ED: Denies ear pain or rhinorrhea Cardiovascular Cardiovascular: Denies chest pain Respiratory/Chest Respiratory/Chest: Denies cough or dyspnea Gastrointestinal Gastrointestinal: Denies abdominal pain Genitourinary Genitourinary ED: Denies dysuria or hematuria Musculoskeletal Musculoskeletal: Denies arthralgias or back pain Integumentary Denies abscess Neurologic Neurologic: Denies headache(s) Psychiatric Psychiatric: Denies anxiety or depression Hematologic/Lymphatic Hematologic/Lymphatic: Reports none Allergic/Immunologic Allergic/Immunologic ED: Denies mouth swelling or tongue swelling EXAM Physical Exam Narrative Exam Narrative: Well-appearing 33-year-old male. Vital signs stable afebrile. Pulse ox 97% on room air no signs hypoxia. He does not look septic or toxic. H EENT exam unremarkable. Mucous members. Neck nontender no lymphadenopathy. Lungs clear to auscultation bilateral. Heart regular rhythm rate about 70 no murmur. Chest wall nontender. Abdomen soft nontender. Nondistended normal bowel sounds no peritoneal signs. Moving all 4 extremities. Nontender no edema. Neurovascular intact. 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 Back unremarkable. Neurologically is awake alert with no focal motor deficits. Const Vital Signs: 08/08/23 20:27 08/08/23 23:07 08/08/23 23:07 Temperature 97 F L Temperature Source Temporal Pulse Rate 71 55 L Respiratory Rate 18 Respiratory Effort Normal Non-Labored Respiratory Pattern Normal Blood Pressure 129/82 H 122/77 H Blood Pressure Mean 97 92 Pulse Ox 97 Oxygen Delivery Method Room Air Positive well nourished and well developed; Negative for obese, cachectic, contractures or unkempt General Appearance ED: well developed and NAD; Negative for unkempt, cachectic, contractures, cyanotic, diaphoretic or pallor Nutritional Appearance: Negative for cachectic or obese HEENT Reports moist mucous membranes Negative for trauma or tenderness Eyes PERRL and EOMs intact bilaterally General Eye ED: Negative for pale conjunctiva, scleral icterus or other Neck no lymphadenopathy, supple and no JVD General: Negative for tenderness Lymph Lymphatic: Negative for other Chest Wall inspection of chest normal and palpation of chest normal Chest: Negative for other Resp normal respiratory effort and clear to auscultation bilaterally Effort and Inspection: Negative for retractions Auscultation: Negative for rales, rhonchi, wheezes or diminished lung sounds Cardio regular rate, S1 normal heart sound, S2 normal heart sound and no murmurs Rhythm: Negative for abnormal rhythm GI normal to inspection, nondistended, normoactive bowel sounds, non-tender, non- distended and no masses Inspection: Negative for abdominal distention Auscultation: normoactive bowel sounds Palpation: soft; Negative for tender or guarding Bladder / Kidney Exam: No other Back/Spine no CVA tenderness General Back: Negative for CVA tenderness Cervical Spine: Negative for cervical spine tenderness Thoracic Spine / Upper Back: Negative for thoracic spinal tenderness or paraspin al muscle tenderness Lumbar Spine / Lower Back: Negative for lumbar spinal tenderness Extremity normal to inspection General Extremety ED: Negative for edema or tenderness General Extremity: Negative for edema Neuro oriented x3 and CN's II-XII intact bilaterally Sensorium / Orientation: alert; Negative for orientation impaired, lethargic or stuporous Motor Exam: strength 5/5 throughout Psych mental status grossly normal Appearance: Negative for unkempt Attitude: No agitated Mood & Affect: Negative for depressed, anxious or tearful Skin no rashes or lesions noted, no wounds and skin turgor normal General Skin Exam: elasticity normal; Negative for jaundice or pallor Lesions: No lesion noted Rashes: No rashes noted Trauma: Negative for abrasion Wounds: Negative for wounds noted MDM MDM MDM Narrative Medical decision making narrative: 33-year-old male complaint diffuse pain consistent with sickle cell pain crisis. Treated with IV fluids, Toradol, Zofran and Dilaudid. Screening labs including reticulocyte count will be obtained. Repeat exam at 11:51 PM patient doing well. Still stating he is having some pain but he is in no distress. To be given a second milligram of Dilaudid. Goal is to have the patient be discharged home. At home he takes ibuprofen and needs a prescription for 800 mg. Exam otherwise unchanged and benign. History & Record Review Discussion w/independent historian: Patient and Family Lab Data Attestation: I reviewed the patient's lab results. Lab results narrative: CBC shows a white count of 10. H&H 9.2 and 27 which is consistent with his baseline anemia. Platelet count of 288. Electrolytes show a gap of 4. Normal BUN of 8 creatinine is 0.7. Glucose 108. Retake count is slightly elevated at 9.7. When compared to prior labs these are consistent with his baseline. Labs: Laboratory Results - last 24 hr 08/08/23 22:45 WBC 10.3 RBC 3.66 L Hgb 9.2 L Hct 27.0 L MCV 73.8 L MCH 25.1 L MCHC 34.1 RDW Std Deviation 43.6 RDW Coeff of Marko 17.4 H Plt Count 288 MPV 8.9 Immature Gran % (Auto) 1.400 H Neut % (Auto) 56.0 Lymph % (Auto) 24.7 Dewey % (Auto) 8.4 Eos % (Auto) 8.8 H Baso % (Auto) 0.7 Absolute Neuts (auto) 5.8 Absolute Lymphs (auto) 2.55 Nucleated RBC % 10.7 H Platelet Estimate ADEQUATE RBC Morphology N CHROM Anisocytosis RARE Retic Count 9.77 H Immature Retic Fraction 38.30 H Retic Hgb Equivalent 26.4 L Sodium 141 Potassium 3.5 Chloride 110 H Carbon Dioxide 27.0 Anion Gap 4 L BUN 8 Creatinine 0.76 Est GFR (MDRD) Af Amer 149 Est GFR (MDRD) Non-Af 124 BUN/Creatinine Ratio 10.5 Glucose 108 H Calcium 8.1 L Discharge Plan Triage Chief Complaint: General Illness ED Provider: Perfecto Ruiz Dx/Rx/DC Orders Prescriptions: No Action [id number] ala [Biktarvy] PO acetaminophen 325 mg Tablet 650 mg PO Q6H PRN PRN (Reason: Pain 1-10 Or Fever >100.7) Qty: 0 0RF tizanidine 2 mg Tablet 2 mg PO Q8H PRN PRN (Reason: Muscle Spasm) Qty: 30 0RF pantoprazole 40 mg Tablet,Delayed Release (Dr/Ec) 40 mg PO DAILY 30 Days Qty: 30 0RF ibuprofen 400 mg Tablet 800 mg PO Q6H PRN PRN (Reason: Pain Score 4-10) 30 Days Qty: 60 0RF folic acid 1 mg tablet 1 mg PO DAILY Qty: 30 3RF ascorbic acid (vitamin C) 500 mg tablet 500 mg PO BID Qty: 60 2RF ferrous sulfate 325 mg (65 mg iron) tablet,delayed release (DR/EC) 325 mg PO DAILY Qty: 30 2RF Primary Care Provider: Damari Calixto Referrals: Damari Calixto MD [Primary Care Provider] -
[2023-08-08 22:58] LABS: Absolute Lymphocyte Count 2.55 X10^3/uL (0.83-4.51); Absolute Neutrophil Count 5.8 X10^3/uL (2.0-7.7); Basophil# 0.07 X10^3/uL; Basophil% 0.7 % (0-1); Eosinophil# 0.91 X10^3/uL; Eosinophils% 8.8 % (0-5); Hemoglobin 9.2 g/dL (13.0-16.5); Lymphocyte # 2.55 X10^3/ul (0.83-4.51); Lymphocyte % 24.7 % (19-41); Mean Corp Hgb Conc 34.1 g/dL (32-36); Mean Corpuscular Hgb 25.1 pg (27.0-32.0); Mean Corpuscular Volume 73.8 fL (80-94); Mean Platelet Vol. 8.9 fl (6.2-12.0); Monocyte# 0.87 X10^3/uL; Monocyte% 8.4 % (0-10); NRBC Flagged by Analyzer 10.7 % (0-5); Neutrophil # 5.79 X10^3/uL (2.7-7.7); POSITIVE COUNT YES; POSITIVE MORPHOLOGY YES; Platelet Count 288 K/mm3 (150-450); RBC Distribution Width CV 17.4 % (11.6-14.6); RBC Distribution Width SD 43.6 fl (35.1-43.9); RET-HE 26.4 pg (30-35); Red Blood Count 3.66 M/mm3 (4.6-6.2); Reticulocyte Count 9.77 % (0.5-1.5); White Blood Count 10.3 K/mm3 (4.4-11.0)
[2023-08-08 23:02] LABS: Differential Indicated SCAN CRITERIA MET
[2023-08-08 23:03] LABS: Anisocytosis RARE; Platelet Estimate ADEQUATE (ADEQ); Red Cell Morphology N CHROM NORMAL (NORM C&C)
[2023-08-08] MEDS: Ketorolac 30 MG/ML Syringe IV (23:03)
[2023-08-08] MEDS: Ondansetron 4 MG/2 ML Vial IV (23:03)
[2023-08-08] MEDS: 0.9% Normal Saline (1000mL) 1,000 ML 1000 ML IV (23:04)
[2023-08-08] MEDS: HYDROmorphone 1 MG/ML Syringe IV (23:04)
[2023-08-08 23:07] VITALS: BP 122/77; PULSE 55
[2023-08-08 23:17] LABS: Anion Gap 4 (5-15); BUN 8 mg/dL (7-18); BUN/Creat Ratio 10.5 RATIO (10-20); Calcium,Total 8.1 mg/dL (8.5-10.1); Chloride 110 mmol/L (98-107); Creatinine, Serum 0.76 mg/dL (0.70-1.30); EST Glomerular Filtration Rate 124 mL/min (>60); Est Glom Filt Rate - Afr Amer 149 mL/min (>60); Glucose 108 mg/dL (74-106); Potassium 3.5 mmol/L (3.5-5.1); Sodium Level 141 mmol/L (136-145)
[2023-08-09] MEDS: HYDROmorphone 1 MG/ML Syringe IV (00:04)
== END 2023-08-09 00:35 | disposition home or self-care (01) ==
PROVIDERS: Emergency Provider Emergency Medicine; PCP Radiology Diagnostic Radiology; Visit Provider Emergency Medicine
DX: D57.00 Hb-SS disease with crisis, unspecified (principal); F17.210 Nicotine dependence, cigarettes, uncomplicated
CPT/HCPCS: 80048; 85025; 85045; 96361; 96374; 96375; 96376; 99282; J7030; A4216; J2405

== ENCOUNTER 2023-09-18 02:03 | Emergency (ER) | payer BC, MEDICAID, SELFPAY ==
[2023-09-18 02:03] VITALS: BP 129/91; PULSE 58; RESP 16; TEMP 36.5; O2SAT 100
[2023-09-18 02:37] VITALS: O2SAT 98
--- NOTE | 2023-09-18 02:37 | EKG12_ITS ---
Test Reason : DYSRHYTHMIA Blood Pressure : / mmHG Vent. Rate : 065 BPM Atrial Rate : 000 BPM P-R Int : 000 ms QRS Dur : 100 ms QT Int : 400 ms P-R-T Axes : 000 043 039 degrees QTc Int : 416 ms Atrial fibrillation RSR' or QR pattern in V1 suggests right ventricular conduction delay Minimal voltage criteria for LVH, may be normal variant ( Sokolow-Luo ) Abnormal ECG Confirmed by MICHAEL WILKINS, SANTOSH ([id number]), editor newspaper [employer] ([id number]) on 09/19/2023 11:02:41 AM Referred By: BB Confirmed By:SANTOSH RODRIGUEZ MD
--- NOTE | 2023-09-18 02:37 | CT_ITS ---
INDICATION: upper back pain, sob, sickle cell, afib EXAMINATION: - CTA Chest WO/W Contrast Injection A radiation dose optimization technique was used for this scan. Radiation CTDIvol 4.67 Radiation DLP 183.78 COMPARISON: None. FINDINGS: Contrast enhanced serial CTA axial images through the chest with coronal and sagittal reformatted series. Additional dedicated coronal and sagittal MIP reformatted series provided as well. IV Contrast dosage and agent: 100mL Isovue-370 IV. MEDIASTINUM: No acute thoracic aortic abnormality. No pulmonary artery filling defects. Mediastinum is otherwise unremarkable. LUNG PARENCHYMA: No acute pulmonary parenchymal abnormality. PLEURA: No pleural effusion. No pneumothorax. 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 UPPER ABDOMEN: Unremarkable. 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 No pulmonary embolus or acute aortic abnormality. No acute abnormality of the chest identified. Electronically Signed: Donaldo Patel MD at 5:05 EST ,
--- NOTE | 2023-09-18 02:38 | ED.VIS.CHEST ---
HPI History of Present Illness Chief Complaint: Palpitations Informant: patient Narrative Narrative: Patient states about an hour ago he woke up all of a sudden feeling sharp pains in his upper back, hard to tell exactly where it is, he did not feel it in his chest but feels like it is inside his thoracic area, and he has some vague discomfort that goes up into his neck as well. Whenever he would lay back he would get a sensation of panic, and keeps saying that I could not lay down but has a hard time describing why. At 1 point he felt a little short of breath but that is not the main complaint here. He was also feeling like his heart was racing at times but it seemed intermittent. He said he is never had this before. He has sickle cell anemia, he states he has pain crises not uncommonly, he felt like maybe 1 was coming on from his right hip area last night but is not bothering him severely right now like a typical pain crisis that he would come to the ER for, and states that he commonly knows what is going on with his body but is never experienced this 1 before. Denies any lightheadedness or syncope. No recent illness or coughing. No GI symptoms. [facility] Medical History HIV (human immunodeficiency virus infection) Sickle cell disease Home Medications [id number] ala PO hiv 06/02/23 [History Last Taken 06/01/23] acetaminophen 325 mg tablet 650 mg (2 x 325 mg) PO Q6H PRN PRN Pain 1-10 Or Fever >100.7 #0 tabs 06/03/23 [Rx Last Taken Unknown] ascorbic acid (vitamin C) 500 mg tablet 500 mg PO BID #60 tabs 06/03/23 [Rx Last Taken Unknown] ferrous sulfate 325 mg (65 mg iron) tablet,delayed release 325 mg PO DAILY #30 tabs 06/03/23 [Rx Last Taken Unknown] folic acid 1 mg tablet 1 mg PO DAILY #30 tabs 06/03/23 [Rx Last Taken Unknown] ibuprofen 400 mg tablet 800 mg (2 x 400 mg) PO Q6H PRN PRN Pain Score 4-10 30 days #60 tabs 06/03/23 [Rx Last Taken Unknown] pantoprazole 40 mg tablet,delayed release 40 mg PO DAILY 30 days #30 tabs 06/03/23 [Rx Last Taken Unknown] tizanidine 2 mg tablet 2 mg PO Q8H PRN PRN Muscle Spasm #30 tabs 06/03/23 [Rx Last Taken Unknown] ibuprofen 800 mg tablet 800 mg PO TID PRN pain #30 tabs 08/08/23 [Rx Last Taken Unknown] Allergy/AdvReac Type Severity Reaction Status Date / Time No Known Allergies Allergy Verified 09/18/23 02:04 Family History Brother Sickle cell anemia Sister Sickle cell anemia Father Sickle cell anemia Mother Sickle cell anemia Social History (Updated 09/18/23 @ 02:[address] Renato Buckley MD) Smoking Status: Current every day smoker tobacco type: cigarettes and e-cigarettes substance use type: does not use ROS ROS ED Constitutional Constitutional ED: Denies chills or fever(s) Eyes Eyes: Denies change in vision or diplopia ENT ENT ED: Denies rhinorrhea or sore throat Cardiovascular Cardiovascular: Reports as per HPI, palpitations, racing heartbeat and radiating jaw, neck or arm pain; Denies chest pain Respiratory/Chest Respiratory/Chest: Reports dyspnea; Denies cough Gastrointestinal Gastrointestinal: Denies abdominal pain, diarrhea, nausea or vomiting Genitourinary Genitourinary ED: Denies dysuria or hematuria Musculoskeletal Musculoskeletal: Reports back pain; Denies neck pain Integumentary Denies abscess or rash Neurologic Neurologic: Denies headache(s), paresthesias or weakness Psychiatric Psychiatric: Reports anxiety; Denies suicidal thoughts EXAM Physical Exam Const Vital Signs: 09/18/23 02:03 09/18/23 02:03 09/18/23 02:37 Temperature 97.7 F L Temperature Source Temporal Pulse Rate 58 L Respiratory Rate 16 Respiratory Effort Normal Non-Labored Blood Pressure 129/91 H Blood Pressure Mean 103 Pulse Ox 100 98 Oxygen Delivery Method Room Air Room Air Oxygen Flow Rate (L/min) 09/18/23 04:00 09/18/23 04:27 09/18/23 04:30 Temperature Temperature Source Pulse Rate 65 92 Respiratory Rate 12 22 H Respiratory Effort Blood Pressure 123/63 H 118/59 L Blood Pressure Mean 83 78 Pulse Ox 96 100 97 Oxygen Delivery Method Room Air Nasal Cannula Oxygen Flow Rate (L/min) 6 6 Positive well nourished and well developed General Appearance ED: well developed and NAD HEENT Reports moist mucous membranes normocephalic and atraumatic Eyes PERRL and EOMs intact bilaterally Neck full ROM and supple Resp normal respiratory effort and clear to auscultation bilaterally Cardio no murmurs Rate: Negative for tachycardic Rhythm: abnormal rhythm irregularly irregular Peripheral Pulses: pulses 2+ throughout GI non-tender and non-distended Auscultation: normoactive bowel sounds Palpation: soft Back/Spine no CVA tenderness General Back: other FROM Extremity normal to inspection General Extremety ED: Negative for edema, pulses abnormal or tenderness General Extremity: Negative for edema or pulses abnormal Neuro oriented x3, CN's II-XII intact bilaterally and no sensory deficits noted Sensorium / Orientation: awake and alert Motor Exam: strength 5/5 throughout Skin no rashes or lesions noted and no wounds MDM MDM MDM Narrative Medical decision making narrative: Treated patient's pain, give him IV fluids, and put him on oxygen all and attempts to alleviate any pain that could be related to his sickle cell disease. EKG and monitor on my interpretation show that he is in atrial fibrillation. He has never been in a dysrhythmia that he knows of. He has pain right now but he is rate controlled in A-fib and does not feel palpitations, unknown how long he has been in A-fib or if it just started. He is not anticoagulated and emergent cardioversion is not indicated. Cardiac, pulmonary, and pulmonary vasculature etiologies are all in the differential, less likely to be acute chest syndrome since he does not have chest pain but this could be considered if atypical presentation as well. Therefore labs, CT angiography performed. It is negative for consolidation/infiltrates and pulmonary embolus. I reviewed the images and the report which I agree with. 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 He did not act surprised, indicating he has been told that before. He is feeling a lot better than he was before. We did a second troponin which came back identical to the first, 7. His A-fib continues, and continues to be rate controlled. He is mostly in the 60s but occasionally is a little faster than that. I discussed this with Dr. Menezes with cardiology, he states the anticoagulation is not indicated at this time given his [id number] 2 score which is basically 0, and he would be comfortable with patient following up as an outpatient with regards to his A-fib, advising to avoid aspirin given his chronic anemia, at which he is near baseline and looking back at his old counts which is always between 8 and 9 hemoglobin. Patient is asking for another dose of pain medication prior to discharge, which is fine, I suspect this is potentially a pain crisis involving bones of his back. Does not of any focal neurologic symptoms to suggest the need for other advanced imaging at this time. Lab Data Attestation: I reviewed the patient's lab results. Labs: Laboratory Results - last 24 hr 09/18/23 09/18/23 02:55 05:20 WBC [facility] Corrected WBC 14.6 H RBC 3.64 L Hgb 8.9 L Hct 26.7 L MCV 73.4 L MCH 24.5 L MCHC 33.3 RDW Std Deviation 39.2 RDW Coeff of Marko 15.7 H Plt Count 399 MPV 8.7 Neut % (Auto) Not Reportable Absolute Neuts (auto) 7.4 Absolute Lymphs (auto) 2.92 Total Counted 100 Neutrophils % (Manual) 40 L Band Neutrophils % 5 Lymphocytes % (Manual) 20 Monocytes % (Manual) 10 Eosinophils % (Manual) 19 H Metamyelocytes % 4 H Myelocytes % 2 H Nucleated RBCs/100 WBC 9 H Diff Path Review May foll Platelet Estimate ADEQUATE Polychromasia 1+ Anisocytosis 2+ Microcytosis 1+ Macrocytosis 1+ Sickle Cells RARE Target Cells 2+ Sodium 142 Potassium 3.6 Chloride 112 H Carbon Dioxide 24.0 Anion Gap 6 BUN 10 Creatinine 0.76 Estim Creat Clear Calc 124.73 Est GFR (MDRD) Af Amer 150 Est GFR (MDRD) Non-Af 124 BUN/Creatinine Ratio 13.2 Glucose 103 Calcium 8.3 L Troponin I High Sens 7 7 B-Natriuretic Peptide 204.6 H Radiography Diagnostic Testing: Clinical Impression(s) from Imaging Studies Chest CTA 09/18/23 02:37 IMPRESSION: 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 No pulmonary embolus or acute aortic abnormality. No acute abnormality of the chest identified. Electronically Signed: Donaldo Patel MD at 5:05 EST , Rhythm Strip Rhythm Strip: A-fib Rate: 60 Ectopy: None EKG Initial EKG: Attestation: I personally reviewed and interpreted this EKG as follows: Interpretation: No Acute Injury Pattern and Atrial Fibrillation Prior EKG tracings: available for review Prior: Changed Discharge Plan Triage Chief Complaint: Palpitations ED Provider: Renato Buckley Dx/Rx/DC Orders Clinical Impression: Acute upper back pain, New onset atrial fibrillation, Sickle cell pain crisis Instructions: AFib Dc Prescriptions: No Action [id number]-irdgppx ala [Biktarvy] PO acetaminophen 325 mg Tablet 650 mg PO Q6H PRN PRN (Reason: Pain 1-10 Or Fever >100.7) Qty: 0 0RF tizanidine 2 mg Tablet 2 mg PO Q8H PRN PRN (Reason: Muscle Spasm) Qty: 30 0RF pantoprazole 40 mg Tablet,Delayed Release (Dr/Ec) 40 mg PO DAILY 30 Days Qty: 30 0RF ibuprofen 400 mg Tablet 800 mg PO Q6H PRN PRN (Reason: Pain Score 4-10) 30 Days Qty: 60 0RF folic acid 1 mg tablet 1 mg PO DAILY Qty: 30 3RF ascorbic acid (vitamin C) 500 mg tablet 500 mg PO BID Qty: 60 2RF ferrous sulfate 325 mg (65 mg iron) tablet,delayed release (DR/EC) 325 mg PO DAILY Qty: 30 2RF ibuprofen 800 mg tablet 800 mg PO TID PRN (Reason: pain) Qty: 30 0RF Primary Care Provider: Damari Calixto Referrals: Orestes Menezes MD [Med Staff - Active Staff] - As soon as possible (call for appt) Damari Calixto MD [Primary Care Provider] - Disposition Disposition: Home, Self Care
[2023-09-18] MEDS: Morphine 4 MG/ML Syringe IV (03:04)
[2023-09-18 03:05] LABS: Hematocrit 26.7 % (40-54); Hemoglobin 8.9 g/dL (13.0-16.5); Mean Corp Hgb Conc 33.3 g/dL (32-36); Mean Corpuscular Hgb 24.5 pg (27.0-32.0); Mean Corpuscular Volume 73.4 fL (80-94); Mean Platelet Vol. 8.7 fl (6.2-12.0); POSITIVE COUNT YES; POSITIVE DIFFERENTIAL YES; POSITIVE MORPHOLOGY YES; Platelet Count 399 K/mm3 (150-450); RBC Distribution Width CV 15.7 % (11.6-14.6); RBC Distribution Width SD 39.2 fl (35.1-43.9); Red Blood Count 3.64 M/mm3 (4.6-6.2)
[2023-09-18] MEDS: 0.9% Normal Saline (1000mL) 1,000 ML 150 ML IV (03:06)
[2023-09-18 03:09] LABS: Differential Indicated MANUAL DIFF
[2023-09-18 03:23] LABS: BNP,B-Type NATRIURETIC PEPTIDE 204.6 pg/mL (0-100)
[2023-09-18 03:24] LABS: Anion Gap 6 (5-15); BUN 10 mg/dL (7-18); BUN/Creat Ratio 13.2 RATIO (10-20); Calcium,Total 8.3 mg/dL (8.5-10.1); Chloride 112 mmol/L (98-107); Creatinine, Serum 0.76 mg/dL (0.70-1.30); EST Glomerular Filtration Rate 124 mL/min (>60); Est Glom Filt Rate - Afr Amer 150 mL/min (>60); Estimated Creatinine Clearance 124.73 ml/min; Glucose 103 mg/dL (74-106); Potassium 3.6 mmol/L (3.5-5.1); Sodium Level 142 mmol/L (136-145); Troponin-I HS (w/2H Reflex) 7 pg/mL (3.0-78.0)
[2023-09-18 03:28] LABS: Neutrophil-Band 5 % (0-5); Neutrophil-Segmented 40 % (47-70); Total Cells Counted 100 (MANUAL DIFF)
[2023-09-18 03:29] LABS: Corrected WBC 14.6 K/mm3 (4.4-11.0); Eosinophil 19 % (0-5); Lymphocyte 20 % (19-41); Metamyelocyte 4 % (0-1); Monocyte 10 % (0-10); Myelocyte 2 % (0-0); Nucleated Red Bld Cells,Manual 9 % (0-5)
[2023-09-18 03:31] LABS: Polychromasia 1+
[2023-09-18 03:32] LABS: Anisocytosis 2+; Platelet Estimate ADEQUATE (ADEQ)
[2023-09-18 03:33] LABS: Target Cells 2+
[2023-09-18 03:35] LABS: Sickle RARE
[2023-09-18 03:36] LABS: Macrocytosis 1+; Microcytosis 1+
[2023-09-18 03:41] LABS: Absolute Lymphocyte Count 2.92 X10^3/uL (0.83-4.51); Absolute Neutrophil Count 7.4 X10^3/uL (2.0-7.7); Lymphocyte # 2.92 X10^3/ul (0.83-4.51); Neutrophil # 7.45 X10^3/uL (2.7-7.7)
[2023-09-18 04:00] VITALS: BP 123/63; PULSE 65; RESP 12; O2SAT 96
[2023-09-18] MEDS: HYDROmorphone 1 MG/ML Syringe IV ×2 (04:13→06:12)
[2023-09-18 04:27] VITALS: O2SAT 100
[2023-09-18 04:30] VITALS: BP 118/59; PULSE 92; RESP 22; O2SAT 97
[2023-09-18 05:00] LABS: Reflex Troponin-HS? (from REC) Y
[2023-09-18 05:55] LABS: Troponin-I HS 7 pg/mL (3.0-78.0)
[2023-09-18 06:20] VITALS: BP 107/71; PULSE 72; RESP 15; O2SAT 98
[2023-09-19 13:42] LABS: Pathologist Review Reviewed
== END 2023-09-18 06:21 | disposition home or self-care (01) ==
PROVIDERS: Emergency Provider Emergency Medicine; PCP Radiology Diagnostic Radiology; Visit Provider Emergency Medicine
DX: I48.91 Unspecified atrial fibrillation (principal); D57.00 Hb-SS disease with crisis, unspecified; B20 Human immunodeficiency virus [HIV] disease; Z79.899 Other long term (current) drug therapy; F17.290 Nicotine dependence, other tobacco product, uncomplicated; F17.210 Nicotine dependence, cigarettes, uncomplicated; M54.89 Other dorsalgia
CPT/HCPCS: 71275; 80048; 83880; 84484; 85025; 93005; A4216; J7030; Q9967

== ENCOUNTER 2023-09-18 10:16 | Emergency (ER) | payer BC, MEDICAID, SELFPAY ==
[2023-09-18 10:17] VITALS: BP 127/96; PULSE 72; RESP 16; TEMP 36.1; O2SAT 97; BMI 20.2
--- NOTE | 2023-09-18 10:38 | EX.ED.DYSGE1 ---
HPI History of Present Illness Chief Complaint: General Illness Informant: patient Onset/Context/Timing Onset: Today Context: Sudden Onset Timing: Continuous Quality: Sharp, throbbing Location: Generalized Worsened by: Nothing Relieved by: Nothing Narrative Narrative: Patient presents with sickle cell crisis that began today. Patient was seen here earlier today. Patient states that after he was discharged his pain came back and is worse. Patient describes it as sharp and throbbing. Patient states it is all over. Patient states nothing makes it worse and nothing makes it better. Patient denies any fevers or chills. Patient denies any nausea or vomiting. Patient states he feels like he is dehydrated. Patient states he took 800 mg of ibuprofen and this did not help. Patient states that when 800 mg of ibuprofen does not help his pain, he knows he needs to come to the emergency department. [facility] Medical History (Updated 09/18/23 @ 15:[address] Wyatt Barclay, DO) HIV (human immunodeficiency virus infection) Sickle cell disease Home Medications dmmygnnqm-hwpsqlxq-pkzncir ala PO hiv 06/02/23 [History Last Taken 06/01/23] acetaminophen 325 mg tablet 650 mg (2 x 325 mg) PO Q6H PRN PRN Pain 1-10 Or Fever >100.7 #0 tabs 06/03/23 [Rx Last Taken Unknown] ascorbic acid (vitamin C) 500 mg tablet 500 mg PO BID #60 tabs 06/03/23 [Rx Last Taken Unknown] ferrous sulfate 325 mg (65 mg iron) tablet,delayed release 325 mg PO DAILY #30 tabs 06/03/23 [Rx Last Taken Unknown] folic acid 1 mg tablet 1 mg PO DAILY #30 tabs 06/03/23 [Rx Last Taken Unknown] ibuprofen 400 mg tablet 800 mg (2 x 400 mg) PO Q6H PRN PRN Pain Score 4-10 30 days #60 tabs 06/03/23 [Rx Last Taken Unknown] pantoprazole 40 mg tablet,delayed release 40 mg PO DAILY 30 days #30 tabs 06/03/23 [Rx Last Taken Unknown] tizanidine 2 mg tablet 2 mg PO Q8H PRN PRN Muscle Spasm #30 tabs 06/03/23 [Rx Last Taken Unknown] ibuprofen 800 mg tablet 800 mg PO TID PRN pain #30 tabs 08/08/23 [Rx Last Taken Unknown] Allergy/AdvReac Type Severity Reaction Status Date / Time No Known Allergies Allergy Verified 09/18/23 10:22 Family History Brother Sickle cell anemia Sister Sickle cell anemia Father Sickle cell anemia Mother Sickle cell anemia Surgical History Hx of splenectomy Social History Smoking Status: Current every day smoker tobacco type: cigarettes and e-cigarettes substance use type: does not use ROS ROS ED Constitutional Constitutional ED: Denies chills or fever(s) Eyes Eyes: Denies blurry vision or change in vision ENT ENT ED: Denies rhinorrhea or sore throat Cardiovascular Cardiovascular: Reports chest pain; Denies palpitations Respiratory/Chest Respiratory/Chest: Denies cough or dyspnea Gastrointestinal Gastrointestinal: Reports abdominal pain; Denies nausea or vomiting Genitourinary Genitourinary ED: Denies dysuria or hematuria Musculoskeletal Musculoskeletal: Reports back pain and neck pain Integumentary Denies abscess or rash Neurologic Neurologic: Denies headache(s) or weakness Allergic/Immunologic Allergic/Immunologic ED: Denies mouth swelling or urticaria EXAM Physical Exam Const Vital Signs: 09/18/23 10:17 09/18/23 11:27 09/18/23 14:18 Temperature 97.0 F L Temperature Source Temporal Pulse Rate 72 Respiratory Rate 16 16 Blood Pressure 127/96 H Blood Pressure Mean 106 Pulse Ox 97 Oxygen Delivery Method Room Air Room Air Positive well nourished and well developed General Appearance ED: well developed and NAD HEENT Reports moist mucous membranes Neck supple and no JVD Resp normal respiratory effort and clear to auscultation bilaterally Cardio regular rate and regular rhythm GI non-tender and non-distended Palpation: soft Neuro oriented x3, CN's II-XII intact bilaterally and no sensory deficits noted Sensorium / Orientation: alert Motor Exam: strength 5/5 throughout Psych mental status grossly normal MDM MDM MDM Narrative Medical decision making narrative: Differential diagnosis includes sickle cell crisis, cardiac dysrhythmia, cardiac ischemia, dehydration, anemia, and electrolyte abnormality. EKG will be obtained to assess for cardiac dysrhythmia and cardiac ischemia. CBC will be obtained to assess for leukocytosis and anemia. Basic metabolic profile will be obtained to assess for electrolyte abnormality and renal function. Patient had a CTA of his chest on his previous visit today which was negative for pneumonia, pneumothorax, aortic dissection, and pulmonary embolism Lab Data Attestation: I reviewed the patient's lab results. Lab results narrative: CBC was reviewed. White blood cell count was 20.3. Hemoglobin was 8.8 and hematocrit was 26.4. Platelets were normal. There were 57 neutrophils and 4 bands on differential. There were 24 lymphocytes, 2 monocytes, 1 eosinophil, 1 metamyelocyte, 11 myelocytes, and 4 nucleated RBCs. Basic metabolic profile was reviewed and was within normal limits. Labs: Laboratory Results - last 24 hr 09/18/23 11:26 WBC 20.3 H RBC 3.60 L Hgb 8.8 L Hct 26.4 L MCV 73.3 L MCH 24.4 L MCHC 33.3 RDW Std Deviation 40.3 RDW Coeff of Marko 15.9 H Plt Count 341 MPV 8.7 Neut % (Auto) Not Reportable Absolute Neuts (auto) 12.4 H Absolute Lymphs (auto) 4.87 H Total Counted 100 Neutrophils % (Manual) 57 Band Neutrophils % 4 Lymphocytes % (Manual) 24 Monocytes % (Manual) 2 Eosinophils % (Manual) 1 Metamyelocytes % 1 Myelocytes % 11 H Nucleated RBCs/100 WBC 4 [address] Review May foll Hypochromasia 1+ Anisocytosis 2+ Microcytosis 1+ Macrocytosis 1+ Sickle Cells 1+ Target Cells 1+ Sodium 140 Potassium 3.6 Chloride 111 H Carbon Dioxide 26.0 Anion Gap 3 L BUN 9 Creatinine 0.70 Estim Creat Clear Calc 137.02 Est GFR (MDRD) Af Amer 164 Est GFR (MDRD) Non-Af 136 BUN/Creatinine Ratio 12.9 Glucose 101 Calcium 8.7 Treatment and Re-Evaluation :: Patient was given IV fluids, Zofran, and Dilaudid. Patient was given a repeat dose of Dilaudid along with a repeat bolus of normal saline. Patient was advised of his findings. Patient was advised that he probably is in a acute sickle cell crisis. Patient was requesting higher doses of Dilaudid. Patient states that he normally needs 1 to 2 mg of IV Dilaudid at a time to control his pain. Patient was advised that I do not prescribe higher doses of Dilaudid and a single injection. Patient was upset with this. Patient was advised that it is for his safety. Patient became upset and requested to be discharged. Patient was given his discharge instructions. Patient was instructed to follow-up with his primary care physician in 3 to 5 days. Patient was instructed to return if worse in any way. Patient understood and was agreeable with the plan. All questions were answered. Discharge Plan Triage Chief Complaint: General Illness ED Provider: Wyatt Barclay Dx/Rx/DC Orders Clinical Impression: Sickle cell pain crisis, Acute upper back pain Instructions: ED Sickle Cell Pain Crisis Prescriptions: No Action tuzycnwgc-piqxjfkj-efbicge ala [Biktarvy] PO acetaminophen 325 mg Tablet 650 mg PO Q6H PRN PRN (Reason: Pain 1-10 Or Fever >100.7) Qty: 0 0RF tizanidine 2 mg Tablet 2 mg PO Q8H PRN PRN (Reason: Muscle Spasm) Qty: 30 0RF pantoprazole 40 mg Tablet,Delayed Release (Dr/Ec) 40 mg PO DAILY 30 Days Qty: 30 0RF ibuprofen 400 mg Tablet 800 mg PO Q6H PRN PRN (Reason: Pain Score 4-10) 30 Days Qty: 60 0RF folic acid 1 mg tablet 1 mg PO DAILY Qty: 30 3RF ascorbic acid (vitamin C) 500 mg tablet 500 mg PO BID Qty: 60 2RF ferrous sulfate 325 mg (65 mg iron) tablet,delayed release (DR/EC) 325 mg PO DAILY Qty: 30 2RF ibuprofen 800 mg tablet 800 mg PO TID PRN (Reason: pain) Qty: 30 0RF Primary Care Provider: Damari Calixto Referrals: Adolfo Westbrook MD [Med Staff - Gear Inspector] - 3-5 Days Disposition Disposition: Home, Self Care Discharge Date/Time: 09/18/23 15:13
[2023-09-18] MEDS: Ondansetron 4 MG/2 ML Vial IV (11:23)
[2023-09-18] MEDS: 0.9% Normal Saline (1000mL) 1,000 ML 1000 ML IV ×2 (11:23→12:40)
[2023-09-18] MEDS: HYDROmorphone 1 MG/ML Syringe 0.5 MG IV ×3 (11:23→14:48)
[2023-09-18 11:35] LABS: Hematocrit 26.4 % (40-54); Hemoglobin 8.8 g/dL (13.0-16.5); Mean Corp Hgb Conc 33.3 g/dL (32-36); Mean Corpuscular Hgb 24.4 pg (27.0-32.0); Mean Corpuscular Volume 73.3 fL (80-94); Mean Platelet Vol. 8.7 fl (6.2-12.0); POSITIVE COUNT YES; POSITIVE MORPHOLOGY YES; Platelet Count 341 K/mm3 (150-450); RBC Distribution Width CV 15.9 % (11.6-14.6); RBC Distribution Width SD 40.3 fl (35.1-43.9); White Blood Count 20.3 K/mm3 (4.4-11.0)
[2023-09-18 11:36] LABS: Differential Indicated MANUAL DIFF
[2023-09-18 11:57] LABS: Anion Gap 3 (5-15); BUN 9 mg/dL (7-18); BUN/Creat Ratio 12.9 RATIO (10-20); Calcium,Total 8.7 mg/dL (8.5-10.1); Chloride 111 mmol/L (98-107); EST Glomerular Filtration Rate 136 mL/min (>60); Est Glom Filt Rate - Afr Amer 164 mL/min (>60); Estimated Creatinine Clearance 137.02 ml/min; Glucose 101 mg/dL (74-106); Potassium 3.6 mmol/L (3.5-5.1); Sodium Level 140 mmol/L (136-145)
[2023-09-18 12:03] LABS: Eosinophil 1 % (0-5); Lymphocyte 24 % (19-41); Metamyelocyte 1 % (0-1); Monocyte 2 % (0-10); Myelocyte 11 % (0-0); Neutrophil-Band 4 % (0-5); Neutrophil-Segmented 57 % (47-70); Nucleated Red Bld Cells,Manual 4 % (0-5); Total Cells Counted 100 (MANUAL DIFF)
[2023-09-18 12:04] LABS: Anisocytosis 2+; Hypochromasia 1+; Macrocytosis 1+; Microcytosis 1+; Sickle 1+; Target Cells 1+
[2023-09-18 12:05] LABS: Absolute Lymphocyte Count 4.87 X10^3/uL (0.83-4.51); Absolute Neutrophil Count 12.4 X10^3/uL (2.0-7.7)
[2023-09-18 14:18] VITALS: RESP 16
--- NOTE | 2023-09-18 14:53 | ED.RN ---
PT UPSET, STATING 0.5MG DILAUDID IS NOT GOING TO HELP HIM. PT HAS RECIEVED THREE 0.5MG DOSES STATING I NEED AT LEAST 1MG, IM HAVING A SICKLE CELL CRISIS. PT INSISTING THIS RN GIVE PAIN MEDICINE TO CLOSEST PORT AND I TOLD HIM I DO NOT FEEL COMFORTABLE DOING THAT. PT INSISTING TO TALK TO DR PUGA, MADE AWARE.
[2023-09-19 13:43] LABS: Pathologist Review Reviewed
== END 2023-09-18 15:13 | disposition home or self-care (01) ==
PROVIDERS: Emergency Provider Emergency Medicine; PCP Radiology Diagnostic Radiology; Visit Provider Emergency Medicine
DX: D57.00 Hb-SS disease with crisis, unspecified (principal); B20 Human immunodeficiency virus [HIV] disease; I48.91 Unspecified atrial fibrillation; F17.290 Nicotine dependence, other tobacco product, uncomplicated; Z79.899 Other long term (current) drug therapy; F17.210 Nicotine dependence, cigarettes, uncomplicated; M54.89 Other dorsalgia
CPT/HCPCS: 71275; 80048; 83880; 84484; 85025; 93005; 96361; 96374; 96375; 96376; 99282; 99284; J7030; Q9967; A4216; J2405

== ENCOUNTER 2023-09-19 03:25 | Observation (INO) | payer BC, MEDICAID, SELFPAY ==
[2023-09-19] VITALS (8 sets, daily range): BP systolic 117–142; BP diastolic 78–97; PULSE 60–84; RESP 12–18; TEMP 36.5–38.3; O2SAT 94–100; BMI 19.6; BMI 18.8
--- NOTE | 2023-09-19 03:54 | EKG12_ITS ---
Test Reason : DYSRHYTHMIA Blood Pressure : / mmHG Vent. Rate : 066 BPM Atrial Rate : 066 BPM P-R Int : 162 ms QRS Dur : 106 ms QT Int : 438 ms P-R-T Axes : 053 038 042 degrees QTc Int : 459 ms Normal sinus rhythm Incomplete right bundle branch block Minimal voltage criteria for LVH, may be normal variant ( Sokolow-Luo ) Borderline ECG Confirmed by MICHAEL WILKINS, SANTOSH ([id number]), story editor SPENCER LEACH ([id number]) on 09/19/2023 10:10:50 AM Referred By: Confirmed By:SANTOSH RODRIGUEZ MD
[2023-09-19] MEDS: HYDROmorphone 1 MG/ML Syringe IV ×10 (04:14→22:36)
[2023-09-19 04:18] LABS: Hemoglobin 8.4 g/dL (13.0-16.5); Mean Corp Hgb Conc 33.6 g/dL (32-36); Mean Corpuscular Hgb 24.6 pg (27.0-32.0); Mean Corpuscular Volume 73.1 fL (80-94); Mean Platelet Vol. 8.8 fl (6.2-12.0); POSITIVE COUNT YES; POSITIVE MORPHOLOGY YES; Platelet Count 279 K/mm3 (150-450); RBC Distribution Width CV 16.3 % (11.6-14.6); RBC Distribution Width SD 40.5 fl (35.1-43.9); Red Blood Count 3.42 M/mm3 (4.6-6.2)
[2023-09-19] MEDS: 0.9% Normal Saline (500mL Bag) 500 ML 999 ML IV (04:18)
[2023-09-19 04:20] LABS: Differential Indicated MANUAL DIFF
--- NOTE | 2023-09-19 04:27 | EX.ED.DYSGE1 ---
HPI History of Present Illness Chief Complaint: General Illness Informant: patient and spouse/S.O. Narrative Narrative: 33-year-old male presenting to the emergency room out of concern for sickle cell crisis. This is the patient's third visit in approximately 24 hours. Patient states he is continuing to have significant pain. He states is very difficult for him to walk. He has known avascular necrosis of the hip as a complication of previous crises. He denies any significant chest pain at the current time. He did have a CTA yesterday that was negative as well as troponin and EKG. There was concern for atrial fibrillation. 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 [facility] Medical History HIV (human immunodeficiency virus infection) Sickle cell disease Home Medications xpgdzzbss-lciprgti-cguzwbw ala PO hiv 06/02/23 [History Last Taken 06/01/23] acetaminophen 325 mg tablet 650 mg (2 x 325 mg) PO Q6H PRN PRN Pain 1-10 Or Fever >100.7 #0 tabs 06/03/23 [Rx Last Taken Unknown] ascorbic acid (vitamin C) 500 mg tablet 500 mg PO BID #60 tabs 06/03/23 [Rx Last Taken Unknown] ferrous sulfate 325 mg (65 mg iron) tablet,delayed release 325 mg PO DAILY #30 tabs 06/03/23 [Rx Last Taken Unknown] folic acid 1 mg tablet 1 mg PO DAILY #30 tabs 06/03/23 [Rx Last Taken Unknown] ibuprofen 400 mg tablet 800 mg (2 x 400 mg) PO Q6H PRN PRN Pain Score 4-10 30 days #60 tabs 06/03/23 [Rx Last Taken Unknown] pantoprazole 40 mg tablet,delayed release 40 mg PO DAILY 30 days #30 tabs 06/03/23 [Rx Last Taken Unknown] tizanidine 2 mg tablet 2 mg PO Q8H PRN PRN Muscle Spasm #30 tabs 06/03/23 [Rx Last Taken Unknown] ibuprofen 800 mg tablet 800 mg PO TID PRN pain #30 tabs 08/08/23 [Rx Last Taken Unknown] bictegravir 50 mg-emtricitabine 200 mg-tenofovir alafenam 25 mg tablet (Biktarvy) 1 tab PO DAILY HIV 09/19/23 [History Last Taken Unknown] Allergy/AdvReac Type Severity Reaction Status Date / Time No Known Allergies Allergy Verified 09/18/23 10:22 Family History Brother Sickle cell anemia Sister Sickle cell anemia Father Sickle cell anemia Mother Sickle cell anemia Surgical History Hx of splenectomy Social History Smoking Status: Current every day smoker tobacco type: cigarettes and e-cigarettes substance use type: does not use ROS ROS ED ROS Narrative Generalized pain particularly of the extremities Constitutional Constitutional ED: Reports chills; Denies fever(s) or weight loss Eyes Eyes: Denies change in vision or diplopia ENT ENT ED: Denies ear pain, rhinorrhea or sore throat Cardiovascular Cardiovascular: Denies chest pain, orthopnea, palpitations or racing heartbeat Respiratory/Chest Respiratory/Chest: Denies cough, dyspnea or orthopnea Gastrointestinal Gastrointestinal: Denies abdominal pain, diarrhea, nausea or vomiting Genitourinary Genitourinary ED: Denies dysuria, hematuria or urinary frequency Musculoskeletal Musculoskeletal: Reports arthralgias and other Details: See history of present illness ; Denies myalgias Integumentary Denies abscess or rash Neurologic Neurologic: Denies headache(s) or weakness Psychiatric Psychiatric: Denies anxiety, depression, suicidal ideation or suicidal thoughts Endocrine Endocrinology: Denies polydipsia, polyphagia or polyuria Allergic/Immunologic Allergic/Immunologic ED: Denies mouth swelling, tongue swelling or urticaria EXAM Physical Exam Const Vital Signs: 09/19/23 03:27 09/19/23 03:30 09/19/23 05:07 Temperature 97.7 F L Temperature Source Temporal Pulse Rate 80 65 Respiratory Rate 12 16 Respiratory Pattern Tachypnea Blood Pressure 135/94 H 121/90 H Blood Pressure Mean 107 100 Pulse Ox 96 94 Oxygen Delivery Method Room Air Room Air 09/19/23 06:20 Temperature Temperature Source Pulse Rate 61 Respiratory Rate 13 Respiratory Pattern Blood Pressure 127/90 H Blood Pressure Mean 102 Pulse Ox 95 Oxygen Delivery Method Room Air Positive well nourished and well developed General Appearance ED: well developed HEENT Reports normocephalic, head/scalp atraumatic and moist mucous membranes Eyes PERRL and EOMs intact bilaterally Neck no lymphadenopathy, supple and no JVD Resp normal respiratory effort and clear to auscultation bilaterally Cardio regular rate, regular rhythm and no murmurs GI normal to inspection, nondistended, normoactive bowel sounds and non-tender Palpation: soft Back/Spine no CVA tenderness and normal ROM Extremity normal to inspection General Extremety ED: Negative for edema General Extremity: Negative for edema Neuro oriented x3 and CN's II-XII intact bilaterally Sensorium / Orientation: alert Motor Exam: strength 5/5 throughout Psych mental status grossly normal Mood & Affect: Negative for depressed or tearful Skin no rashes or lesions noted and no wounds MDM MDM MDM Narrative Medical decision making narrative: IV was established the patient received IV fluids and pain medication. White count at 14.8 hemoglobin 8.4. Platelet count was 279. He continues to have an elevated bilirubin of 2.2 direct at 0.63. Creatinine 0.62. His EKG tonight is a sinus rhythm. He was redosed with pain medication. Reticulocyte count is pending. I spoke with the patient and recommended admission and he is agreeable. I will speak with the hospitalist regarding admission. We will continue IV hydration and pain medication. History & Record Review Discussion w/independent historian: Patient and Significant other Additional record(s) reviewed:: Prior inpatient record, Prior outpatient record, Prior ED visit and Prior labs Lab Data Attestation: I reviewed the patient's lab results. Labs: Laboratory Results - last 24 hr 09/19/23 04:10 WBC CONSULTING DATABASE ADMINISTRATOR Corrected WBC 12.9 H RBC 3.42 L Hgb 8.4 L Hct 25.0 L MCV 73.1 L MCH 24.6 L MCHC 33.6 RDW Std Deviation 40.5 RDW Coeff of Marko 16.3 H Plt Count 279 MPV 8.8 Neut % (Auto) Not Reportable Absolute Neuts (auto) 9.3 H Absolute Lymphs (auto) 2.06 Total Counted 100 Neutrophils % (Manual) 72 H Lymphocytes % (Manual) 16 L Monocytes % (Manual) 4 Eosinophils % (Manual) 1 Metamyelocytes % 1 Myelocytes % 10 H Nucleated RBCs/100 WBC 15 H Diff Path Review May foll Platelet Estimate ADEQUATE Sickle Cells RARE Target Cells 2+ Retic Count 7.65 H Immature Retic Fraction 35.70 H Retic Hgb Equivalent 25.0 L Sodium 141 Potassium 3.6 Chloride 109 H Carbon Dioxide 25.0 Anion Gap 7 BUN 6 L Creatinine 0.62 L Estim Creat Clear Calc 150.07 Est GFR (MDRD) Af Amer 190 Est GFR (MDRD) Non-Af 157 BUN/Creatinine Ratio 9.7 L Glucose 92 Calcium 8.5 Total Bilirubin 2.20 H Direct Bilirubin 0.63 H AST 59 H ALT 23 Alkaline Phosphatase 115 Total Protein 6.8 Albumin 3.5 Globulin 3.3 EKG Initial EKG: Attestation: I personally reviewed and interpreted this EKG as follows: Comments: Normal sinus rhythm with a ventricular rate of 66 bpm. No concerning features of ACS noted Management Discussion w/another healthcare provider: Hospitalist Discharge Plan Triage Chief Complaint: General Illness ED Provider: Jeyson Brown Dx/Rx/DC Orders Clinical Impression: Anemia, Sickle cell pain crisis Prescriptions: No Action cbxqjkewu-obixeubv-erlgdmz ala [Biktarvy] PO acetaminophen 325 mg Tablet 650 mg PO Q6H PRN PRN (Reason: Pain 1-10 Or Fever >100.7) Qty: 0 0RF tizanidine 2 mg Tablet 2 mg PO Q8H PRN PRN (Reason: Muscle Spasm) Qty: 30 0RF pantoprazole 40 mg Tablet,Delayed Release (Dr/Ec) 40 mg PO DAILY 30 Days Qty: 30 0RF ibuprofen 400 mg Tablet 800 mg PO Q6H PRN PRN (Reason: Pain Score 4-10) 30 Days Qty: 60 0RF folic acid 1 mg tablet 1 mg PO DAILY Qty: 30 3RF ascorbic acid (vitamin C) 500 mg tablet 500 mg PO BID Qty: 60 2RF ferrous sulfate 325 mg (65 mg iron) tablet,delayed release (DR/EC) 325 mg PO DAILY Qty: 30 2RF ibuprofen 800 mg tablet 800 mg PO TID PRN (Reason: pain) Qty: 30 0RF Biktarvy 50-200-25 mg tablet 1 tab PO DAILY Patient Comments: TAKE 1 TABLET BY MOUTH EVERY DAY CALL OFFICE FOR APPT AND REFILLS Primary Care Provider: Damari Calixto Referrals: Damari Calixto MD [Primary Care Provider] - Disposition Disposition: Acute Care Hospital
[2023-09-19 04:44] LABS: AST(SGOT) 59 U/L (15-37); Alanine Aminotransfer ALT/SGPT 23 U/L (16-61); Albumin, Serum 3.5 g/dL (3.2-5.0); Alkaline Phosphatase 115 U/L (45-117); Anion Gap 7 (5-15); BUN 6 mg/dL (7-18); BUN/Creat Ratio 9.7 RATIO (10-20); Bilirubin, Direct 0.63 mg/dL (0.00-0.30); Calcium,Total 8.5 mg/dL (8.5-10.1); Chloride 109 mmol/L (98-107); Creatinine, Serum 0.62 mg/dL (0.70-1.30); EST Glomerular Filtration Rate 157 mL/min (>60); Est Glom Filt Rate - Afr Amer 190 mL/min (>60); Estimated Creatinine Clearance 150.07 ml/min; Globulin 3.3 g/dL (2.2-4.2); Glucose 92 mg/dL (74-106); Potassium 3.6 mmol/L (3.5-5.1); Protein, Total 6.8 g/dL (6.4-8.2); Sodium Level 141 mmol/L (136-145)
[2023-09-19] MEDS: Dextrose 5%/0.9% NaCl 1,000 ML 150 ML IV (05:03)
[2023-09-19 05:08] LABS: Reticulocyte Count 7.65 % (0.5-1.5)
[2023-09-19 06:26] LABS: Corrected WBC 12.9 K/mm3 (4.4-11.0); Eosinophil 1 % (0-5); Lymphocyte 16 % (19-41); Metamyelocyte 1 % (0-1); Monocyte 4 % (0-10); Myelocyte 10 % (0-0); Neutrophil-Segmented 72 % (47-70); Total Cells Counted 100 (MANUAL DIFF)
[2023-09-19 06:27] LABS: Nucleated Red Bld Cells,Manual 15 % (0-5)
[2023-09-19 06:28] LABS: Absolute Neutrophil Count 9.3 X10^3/uL (2.0-7.7)
[2023-09-19 06:29] LABS: Absolute Lymphocyte Count 2.06 X10^3/uL (0.83-4.51); Platelet Estimate ADEQUATE (ADEQ); Sickle RARE; Target Cells 2+
--- NOTE | 2023-09-19 06:38 | NURSING ---
RAMIN EASON, CALLED. COMPUTERS ARE DOWN AT [facility]
--- NOTE | 2023-09-19 07:48 | HP.PCM.HOS_ITS ---
HPI - General General Date of Admission: 09/19/23 Date of Service: 09/19/23 Chief Complaint: sickle cell vaso occlusive crises HPI Narrative MEHDI TRAN, is a 33 M with a PMH as outlined who presents via the ED on 09/19/2023 with a complaint of generalised pain, mainly in the hip. He has a history of SCD and has been admitted before for sickle cell crises. He had been seen in the ED 3x over the past 24 hours prior to admission. He denied any dizziness, lightheadedness, nausea, vomiting or any other symptoms. Review of systems was otherwise negative. BP is 127/90, AR of 61 and RR of 13. HE was saturating at 95% on room air. CBC showed Hb of 8.4, corrected wbc of 12.9 and platelets of 279. Reticulocyte of 7.65. Chemistry showed sodium of 141, K is 3.6, total bilirubin of 2.2, direct bilirubin of 0.63. He states he does not follow-up with a stitcher around and basically uses the ER to manage his sickle cell disease and any sickle cell crisis. He is being admitted to be managed for sickle cell pain crises in a known SCD patient. [facility] Medical History HIV (human immunodeficiency virus infection) Sickle cell disease Home Medications qmnjyiwkq-upzlmkxz-ncewwjn ala 1 tab PO DAILY hiv 06/02/23 [History Last Taken 09/19/23] ibuprofen 400 mg tablet 800 mg (2 x 400 mg) PO Q6H PRN PRN Pain Score 4-10 30 days #60 tabs 06/03/23 [Rx Last Taken Unknown] ibuprofen 800 mg tablet 800 mg PO TID PRN pain #30 tabs 08/08/23 [Rx Last Taken Unknown] bictegravir 50 mg-emtricitabine 200 mg-tenofovir alafenam 25 mg tablet (Biktarvy) 1 tab PO DAILY HIV 09/19/23 [History Last Taken Unknown] Allergy/AdvReac Type Severity Reaction Status Date / Time tramadol Allergy Unknown Hives Verified 09/19/23 09:37 Family History Brother Sickle cell anemia Sister Sickle cell anemia Father Sickle cell anemia Mother Sickle cell anemia Surgical History Hx of splenectomy Social History (Updated 09/19/23 @ 09:32 by Kraine Nj) household members: spouse Smoking Status: Current every day smoker tobacco type: cigarettes and e- cigarettes substance use type: does not use ROS Constitutional Constitutional: Reports fatigue, malaise and weakness; Denies anorexia, chills or fever(s) Eyes Eyes: Denies change in vision ENT HEENT: Denies dysphagia or headache(s) Cardiovascular Cardiovascular: Denies chest pain, dyspnea on exertion, edema, lightheadedness, orthopnea, palpitations, paroxysmal nocturnal dyspnea, rapid heart rate or syncope Respiratory/Chest Respiratory/Chest: Denies cough, shortness of breath at rest or shortness of breath with exertion Gastrointestinal Gastrointestinal: Denies abdominal pain, diarrhea, nausea or vomiting Genitourinary Genitourinary: Denies burning urination or dysuria Neurologic Neurologic: Denies confusion, dizziness, focal weakness, headache(s), seizure- like activity or seizures Psychiatric Psychiatric: Denies anxiety or depression Endocrine Endocrinology: Denies change in body appearance Hematologic/Lymphatic Hematologic/Lymphatic: Denies anemia Vital Signs Vital Signs Vital Signs: 09/19/23 03:27 09/19/23 03:30 09/19/23 05:07 Temperature 97.7 F L Temperature Source Temporal Pulse Rate 80 65 Respiratory Rate 12 16 Respiratory Pattern Tachypnea Blood Pressure 135/94 H 121/90 H Blood Pressure Mean 107 100 Pulse Ox 96 94 Oxygen Delivery Method Room Air Room Air 09/19/23 06:20 Temperature Temperature Source Pulse Rate 61 Respiratory Rate 13 Respiratory Pattern Blood Pressure 127/90 H Blood Pressure Mean 102 Pulse Ox 95 Oxygen Delivery Method Room Air Weight Weight: 140 lb 10.479 oz Body Mass Index (BMI) 19.6 Physical Exam Const alert, oriented x3 and no apparent distress General Appearance: cooperative HEENT normocephalic, head/scalp atraumatic, hearing grossly normal bilaterally and moist oral mucous membranes Mouth: oral and palatal mucosa normal Eyes PERRL and EOMs intact bilaterally Neck no lymphadenopathy and supple Resp normal respiratory effort Cardio regular rate, regular rhythm, S1 normal heart sound, S2 normal heart sound and no murmurs GI normal to inspection, nondistended, normoactive bowel sounds, soft to palpation, non-tender and non-distended Extremity normal to inspection, full ROM and no clubbing, cyanosis or edema Extremity Narrative: pain and tenderness in all joints in extremities. Neuro oriented x3, CN's II-XII intact bilaterally, moves all extremities and no focal motor deficits Sensorium / Orientation: awake Motor Exam: strength 5/5 throughout Psych affect normal Results Lab / Micro Data 09/19/23 04:10 09/19/23 04:10 Labs: Laboratory Results - last 24 hr 09/19/23 04:10: WBC BINDERY MANAGER, Corrected WBC 12.9 H, RBC 3.42 L, Hgb 8.4 L, Hct 25.0 L, MCV 73.1 L, MCH 24.6 L, MCHC 33.6, RDW Std Deviation 40.5, RDW Coeff of Marko 16.3 H, Plt Count 279, MPV 8.8, Neut % (Auto) Not Reportable, Absolute Neuts (auto) 9.3 H, Absolute Lymphs (auto) 2.06, Total Counted 100, Neutrophils % (Manual) 72 H, Lymphocytes % (Manual) 16 L, Monocytes % (Manual) 4, Eosinophils % (Manual) 1, Metamyelocytes % 1, Myelocytes % 10 H, Nucleated RBCs/100 WBC 15 H, Diff Path Review February, Platelet Estimate ADEQUATE, Sickle Cells RARE, Target Cells 2+, Retic Count 7.65 H, Immature Retic Fraction 35.70 H, Retic Hgb Equivalent 25.0 L , Sodium 141, Potassium 3.6, Chloride 109 H, Carbon Dioxide 25.0, Anion Gap 7, BUN 6 L, Creatinine 0.62 L, Estim Creat Clear Calc 150.07, Est GFR (MDRD) Af Amer 190, Est GFR (MDRD) Non-Af 157, BUN/Creatinine Ratio 9.7 L, Glucose 92, Calcium 8.5, Total Bilirubin 2.20 H, Direct Bilirubin 0.63 H, AST 59 H, ALT 23, Alkaline Phosphatase 115, Total Protein 6.8, Albumin 3.5, Globulin 3.3 Assessment & Plan Assessment/Plan (1) Anemia: (2) Sickle cell pain crisis: (3) New onset atrial fibrillation: PLAN: Plan #Acute vasoocclusive crises in SCD * Has had pain in his extremities for the last 2 days and has been in the ER 3 times over the last 24 hours. * Does not follow with a stitcher around. Hydrate aggressively with IV fluids at 150 cc/h. * P.o. Tylenol, p.o. oxycodone and IV Dilaudid as needed for pain * Patient encouraged to drink liberally * PT/OT on board * has been admitted twice this year already for SCD vaso occlusive crises. * check genotype as patient says he knows he has SCD but doesnt know the genotype * #Anemia * Due to sickle cell disease. Hemoglobin is 8.4. His baseline is around 8-9. * He has increased reticulocyte count at 7.65%. * Will benefit from follow-up with hematology on outpatient basis to establish care * #HIV infection * this is chronic. Follows with Dr No and last visit per patient was last Tuesday, 3 days ago * cotinue bictegravir emtricitabine tenofovir tablet 1 daily * #Possible afib * Was noted to be in A-fib per telemetry in the ER. Patient is currently in nor mal sinus rhythm and has been in normal sinus rhythm since admission. Will monitor. * DVT prophylaxis: Lovenox Charges/Coding Visit Charges Inpatient E&M: 20585 Init Hosp L3
--- NOTE | 2023-09-19 07:48 | NURSING ---
DR IVÁN BATISTA
--- NOTE | 2023-09-19 07:51 | NURSING ---
DR IVÁN BATISTA
--- NOTE | 2023-09-19 08:01 | NURSING ---
MED SURG [facility] SICKLE CELL CRISIS
[2023-09-19] MEDS: 0.9% Saline Lock 10 ML Syringe IV ×2 (10:30→10:42)
[2023-09-19] MEDS: 0.9% Normal Saline (1000mL) 1,000 ML 200 ML IV ×3 (10:42→20:37)
[2023-09-19] MEDS: Pantoprazole Sodium 40 MG Tablet PO (12:45)
[2023-09-19] MEDS: Folic Acid 1 MG Tablet PO (12:45)
[2023-09-19] MEDS: Ferrous Sulfate 325 MG Tablet PO (12:45)
[2023-09-19] MEDS: Ketorolac 30 MG/ML Syringe IV ×2 (12:46→19:42)
[2023-09-19 13:46] LABS: Pathologist Review Reviewed
[2023-09-19] MEDS: Acetaminophen 325 MG Tablet 650 MG PO (19:52)
[2023-09-19] MEDS: Temazepam 15 MG Capsule 30 MG PO (23:34)
[2023-09-19] MEDS: MELATONIN 3 MG TABLET 6 MG PO (23:38)
[2023-09-20] MEDS: HYDROmorphone 1 MG/ML Syringe IV ×11 (01:46→22:12)
[2023-09-20] MEDS: 0.9% Saline Lock 10 ML Syringe IV ×10 (01:46→20:12)
[2023-09-20 03:52] VITALS: BP 127/86; PULSE 97; RESP 18; TEMP 37.6; O2SAT 93
[2023-09-20] MEDS: Ketorolac 30 MG/ML Syringe IV ×4 (04:35→22:14)
[2023-09-20 07:39] LABS: Absolute Lymphocyte Count 3.02 X10^3/uL (0.83-4.51); Absolute Neutrophil Count 9.5 X10^3/uL (2.0-7.7); Basophil# 0.12 X10^3/uL; Basophil% 0.8 % (0-1); Eosinophil# 0.39 X10^3/uL; Eosinophils% 2.8 % (0-5); Hemoglobin 8.6 g/dL (13.0-16.5); Lymphocyte # 3.02 X10^3/ul (0.83-4.51); Lymphocyte % 21.3 % (19-41); Mean Corp Hgb Conc 33.1 g/dL (32-36); Mean Corpuscular Hgb 24.4 pg (27.0-32.0); Mean Corpuscular Volume 73.7 fL (80-94); Mean Platelet Vol. 8.9 fl (6.2-12.0); Monocyte# 0.64 X10^3/uL; Monocyte% 4.5 % (0-10); NRBC Flagged by Analyzer 15.6 % (0-5); Neutrophil # 9.46 X10^3/uL (2.7-7.7); Neutrophil % 66.7 % (47-70); POSITIVE COUNT YES; POSITIVE MORPHOLOGY YES; Platelet Count 248 K/mm3 (150-450); RBC Distribution Width SD 40.3 fl (35.1-43.9); Red Blood Count 3.53 M/mm3 (4.6-6.2); White Blood Count 14.2 K/mm3 (4.4-11.0)
[2023-09-20 07:44] LABS: Differential Indicated SCAN CRITERIA MET
[2023-09-20 07:55] VITALS: BP 141/92; PULSE 80; RESP 12; TEMP 36.4; O2SAT 96
[2023-09-20 07:58] VITALS: BP 141/92; PULSE 80; RESP 12; TEMP 36.4; O2SAT 96
[2023-09-20] MEDS: Pantoprazole Sodium 40 MG Tablet PO (08:00)
[2023-09-20] MEDS: Folic Acid 1 MG Tablet PO (08:00)
[2023-09-20] MEDS: Ferrous Sulfate 325 MG Tablet PO (08:00)
[2023-09-20 08:07] LABS: ALB/GLOB Ratio 0.8 RATIO (0.9-2.4); AST(SGOT) 51 U/L (15-37); Alanine Aminotransfer ALT/SGPT 22 U/L (16-61); Albumin, Serum 2.9 g/dL (3.2-5.0); Alkaline Phosphatase 126 U/L (45-117); Anion Gap 3 (5-15); BUN 3 mg/dL (7-18); BUN/Creat Ratio 4.1 RATIO (10-20); Calcium,Total 8.2 mg/dL (8.5-10.1); Chloride 107 mmol/L (98-107); Creatinine, Serum 0.73 mg/dL (0.70-1.30); EST Glomerular Filtration Rate 130 mL/min (>60); Est Glom Filt Rate - Afr Amer 157 mL/min (>60); Estimated Creatinine Clearance 122.26 ml/min; Globulin 3.5 g/dL (2.2-4.2); Glucose 87 mg/dL (74-106); Potassium 3.3 mmol/L (3.5-5.1); Protein, Total 6.4 g/dL (6.4-8.2); Sodium Level 139 mmol/L (136-145)
[2023-09-20 08:29] LABS: Anisocytosis 2+; Sickle 2+
[2023-09-20 08:30] LABS: Polychromasia 1+; Target Cells 1+
--- NOTE | 2023-09-20 09:55 | PN_ITS ---
Subjective Subjective Patient seen and examined. He says hte pain is much better. He denies any nausea, shortness of breath, vomiting, fever or chills or any other symptoms. Review of systems is otherwise negative. He has remained hemodynamically stable. Objective Data Objective Data Vital Signs: Vital Signs Temp Pulse Resp BP Pulse Ox O2 Del Method 97.6 F L 80 12 141/92 H 96 Room Air 09/20/23 07:58 09/20/23 07:58 09/20/23 07:58 09/20/23 07:58 09/20/23 07:58 09/20/23 09:44 Oxygen Delivery Method Room Air Weight: 134 lb 14.766 oz Body Mass Index (BMI) 18.8 Intake & Output: Intake and Output for Last 24 Hours 09/18/23 09/19/23 09/20/23 23:59 23:59 23:59 Intake Total 3238.33 / 3238.33 1000 / 1000 Output Total 1850 / 1850 300 / 300 Balance 1388.33 / 1388.33 700 / 700 Lab / Micro Data 09/20/23 07:25 09/20/23 07:25 Labs: Laboratory Results - last 24 hr 09/19/23 04:10: Diff Path Review Reviewed 09/20/23 07:25: WBC 14.2 H, RBC 3.53 L, Hgb 8.6 L, Hct 26.0 L, MCV 73.7 L, MCH 24.4 L, MCHC 33.1, RDW Std Deviation 40.3, RDW Coeff of Marko 16.0 H, Plt Count 248, MPV 8.9, Immature Gran % (Auto) 3.900 H, Neut % (Auto) 66.7, Lymph % (Auto) 21.3, [place] % (Auto) 4.5, Eos % (Auto) 2.8, Baso % (Auto) 0.8, Absolute Neuts (auto) 9.5 H, Absolute Lymphs (auto) 3.02, Nucleated RBC % 15.6 H, Diff Path Review May foll, Polychromasia 1+, Anisocytosis 2+, Sickle Cells 2+, Target Cells 1+, Sodium 139, Potassium 3.3 L, Chloride 107, Carbon Dioxide 29.0, Anion Gap 3 L, BUN 3 L, Creatinine 0.73, Estim Creat Clear Calc 122.26, Est GFR (MDRD) Af Amer 157, Est GFR (MDRD) Non-Af 130, BUN/Creatinine Ratio 4.1 L, Glucose 87, Calcium 8.2 L, Total Bilirubin 2.60 H, AST 51 H, ALT 22, Alkaline Phosphatase 126 H, Total Protein 6.4, Albumin 2.9 L, Globulin 3.5, Albumin/Globulin Ratio 0.8 L Physical Exam Const alert, oriented x3 and no apparent distress General Appearance: cooperative HEENT normocephalic, head/scalp atraumatic, hearing grossly normal bilaterally and moist oral mucous membranes Eyes PERRL and EOMs intact bilaterally Neck no lymphadenopathy and supple Resp normal respiratory effort Cardio regular rate, regular rhythm, S1 normal heart sound, S2 normal heart sound and no murmurs GI normal to inspection, nondistended, normoactive bowel sounds, soft to palpation, non-tender and non-distended Extremity normal to inspection, full ROM and no clubbing, cyanosis or edema Extremity Narrative: pain and tenderness in all joints in extremities. Neuro oriented x3, CN's II-XII intact bilaterally, moves all extremities and no focal motor deficits Sensorium / Orientation: awake Motor Exam: strength 5/5 throughout Psych thought process normal, cooperative and affect normal Appearance: appropriate Assessment & Plan Assessment/Plan (1) Anemia: (2) Sickle cell pain crisis: (3) New onset atrial fibrillation: PLAN: Plan #Acute vasoocclusive crises in SCD * pain has improved and he is doing much better * continue PO tylenol, po oxycodone and IV dilaudid prn for pain * continue hydration with IVF * Does not follow with a equestrian trainer. * Patient encouraged to drink liberally * PT/OT on board * has been admitted twice this year already for SCD vaso occlusive crises. * Hb electropheresis done and pending. 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 Hemoglobin is 8.6 today. His baseline is around 8-9. * He has increased reticulocyte count at 7.65%. * Will benefit from follow-up with hematology on outpatient basis to establish care * #HIV infection * this is chronic. Follows with Dr No and last visit per patient was last Tuesday, 3 days prior to admission * cotinue bictegravir emtricitabine tenofovir tablet 1 daily * #Possible afib * Was noted to be in A-fib per telemetry in the ER. Patient is currently in normal sinus rhythm and has been in normal sinus rhythm since admission. Will monitor. * DVT prophylaxis: Lovenox Charges/Coding Visit Charges Inpatient E&M: 57542 Subs Hosp L2
[2023-09-20] MEDS: 0.9% Normal Saline (1000mL) 1,000 ML 125 ML IV ×2 (11:52→20:51)
[2023-09-20 12:39] LABS: Mucous, Urine 0 SEEN /hpf (<or=2+); Red Blood Cells-Urine 0 SEEN /hpf (0-5)
[2023-09-20 12:49] LABS: Color, Urine Yellow (Yellow); Glucose, Dipstick Normal (Normal); Ketone-Dipstick 5 mg/dl (Negative); Leukocyte Esterase-Dipstick 500 /ul (Negative); Nitrite-Dipstick Negative (Negative); Occult Blood-Urine 25 /ul (Negative); Protein-Dipstick 15 mg/dl (Negative); Urine Bilirubin Dipstick Negative (Negative); Urine Clarity Sl. Cloudy (Clear); Urine Urobilinogen 1 mg/dl (Normal)
[2023-09-20 13:03] LABS: Bacteria 4+ /hpf (None Seen); Squamous Epithelial Cells - UA 0-5 SEEN /hpf (0-5); White Blood Cells 50-100 SEEN /hpf (0-5)
[2023-09-20 13:34] LABS: Pathologist Review Reviewed
[2023-09-20 13:50] VITALS: BP 122/65; PULSE 80; RESP 16; TEMP 36.5; O2SAT 96
--- NOTE | 2023-09-20 14:19 | CASEMGMT ---
Per nursing admission questions patient does not have a Healthcare Power of Double End Tenoner Setter or Healthcare Living Will and patient is not interested in documents. Brittney DENTON
--- NOTE | 2023-09-20 14:20 | CASEMGMT ---
RN?CM?[employer]?CM?to room to meet with patient for initial transition planning/care coordination?assessment.?RN?CM?introduced self and role at [facility].? Pt voices understanding and consents to?assessment?at this time.? Pt resting in bed in no distress at this time.? Pt is A/O at this time and answers all questions appropriately.?? Care providers, pharmacy, and demographics verified/updated at this time. PCP: Dr Calixto Specialists: Dr No--ID Preferred Pharmacy: [facility] Retail @ discharge Insurance: [employer] Prescription Benefit: yes Living Will/HPOA: Pt does not currently have LW/HCPOA and declines info at this time.? Pt made aware that he can contact as an out-pt and make appt in the future if he decides he would like to talk with someone about this or would like to utilize [facility] social work for advanced directive completion.?? LNOK: Living Arrangements: Patient lives with in a 2 story home w/their 2 children, ages 2 & 10. Patient is independent and able to ambulate stairs. Transportation: self, DME: Patient has cane at home. HHC/SNF: No previous HHC or SNF stays. No needs identified. Pt wishes to return home and states has no concerns with going home at time of discharge.? CM?to follow for any discharge planning/needs.? Pt voices no concerns/needs at this time.? Plan: Home w/spousal support and discharge plans in place. Micah CRAIN RN CM
[2023-09-20] MEDS: Senna Tablet 1 TABLET PO (15:50)
[2023-09-20 22:07] VITALS: BP 138/84; PULSE 94; RESP 18; TEMP 37.1; O2SAT 92
[2023-09-20] MEDS: MELATONIN 3 MG TABLET 6 MG PO (22:10)
[2023-09-20] MEDS: Temazepam 15 MG Capsule 30 MG PO (22:10)
[2023-09-21] MEDS: HYDROmorphone 1 MG/ML Syringe IV ×5 (01:28→10:22)
[2023-09-21] MEDS: 0.9% Saline Lock 10 ML Syringe IV ×6 (01:28→11:12)
[2023-09-21 04:00] VITALS: BP 122/79; PULSE 88; RESP 16; TEMP 37.1; O2SAT 92
[2023-09-21] MEDS: Ketorolac 30 MG/ML Syringe IV ×2 (04:40→11:11)
[2023-09-21 08:10] VITALS: BP 113/66; PULSE 94; RESP 16; TEMP 36.6; O2SAT 96
[2023-09-21 08:40] LABS: Absolute Lymphocyte Count 3.27 X10^3/uL (0.83-4.51); Absolute Neutrophil Count 9.2 X10^3/uL (2.0-7.7); Basophil# 0.04 X10^3/uL; Basophil% 0.3 % (0-1); Eosinophil# 0.63 X10^3/uL; Eosinophils% 4.5 % (0-5); Hematocrit 22.3 % (40-54); Hemoglobin 7.8 g/dL (13.0-16.5); Lymphocyte # 3.27 X10^3/ul (0.83-4.51); Lymphocyte % 23.5 % (19-41); Mean Corpuscular Hgb 25.3 pg (27.0-32.0); Mean Corpuscular Volume 72.4 fL (80-94); Monocyte# 0.64 X10^3/uL; Monocyte% 4.6 % (0-10); Neutrophil # 9.16 X10^3/uL (2.7-7.7); Neutrophil % 65.7 % (47-70); POSITIVE COUNT YES; POSITIVE MORPHOLOGY YES; Platelet Count 211 K/mm3 (150-450); RBC Distribution Width CV 16.6 % (11.6-14.6); RBC Distribution Width SD 41.6 fl (35.1-43.9); Red Blood Count 3.08 M/mm3 (4.6-6.2); White Blood Count 13.9 K/mm3 (4.4-11.0)
[2023-09-21 08:44] LABS: Differential Indicated SCAN CRITERIA MET
[2023-09-21 09:11] LABS: ALB/GLOB Ratio 0.8 RATIO (0.9-2.4); AST(SGOT) 35 U/L (15-37); Alanine Aminotransfer ALT/SGPT 19 U/L (16-61); Albumin, Serum 2.7 g/dL (3.2-5.0); Alkaline Phosphatase 112 U/L (45-117); Anion Gap 4 (5-15); BUN 6 mg/dL (7-18); BUN/Creat Ratio 7.9 RATIO (10-20); Calcium,Total 8.1 mg/dL (8.5-10.1); Chloride 106 mmol/L (98-107); Creatinine, Serum 0.76 mg/dL (0.70-1.30); EST Glomerular Filtration Rate 123 mL/min (>60); Est Glom Filt Rate - Afr Amer 149 mL/min (>60); Estimated Creatinine Clearance 117.43 ml/min; Globulin 3.5 g/dL (2.2-4.2); Glucose 130 mg/dL (74-106); Protein, Total 6.2 g/dL (6.4-8.2); Sodium Level 138 mmol/L (136-145)
--- NOTE | 2023-09-21 11:09 | DCINST_ITS ---
Discharge Instructions Diet Discharge Diet: No restrictions Activity Discharge Activity: Return to Normal Activity Weight Bearing Status: Full weight bearing Follow Up Care Test Results: Test results from this visit will be discussed in further detail at your follow- up appointment, if applicable. Discharge Plan Admission Admit Date/Time: 09/19/23 08:03 Primary Reason for Your Visit: Sickle cell crisis Attending Provider: Ahsan Gilliam Primary Care Provider: Damari Calixto Consulting Providers: Marianna Pichardo Discharge Orders/Prescriptions Prescriptions: No Action xrqkbcjsp-erzeuxly-xhufiqr ala [Biktarvy] 1 tab PO DAILY Patient Comments: 50-200-25 MG ibuprofen 400 mg Tablet 800 mg PO Q6H PRN PRN (Reason: Pain Score 4-10) 30 Days Qty: 60 0RF ibuprofen 800 mg tablet 800 mg PO TID PRN (Reason: pain) Qty: 30 0RF Biktarvy 50-200-25 mg tablet 1 tab PO DAILY Patient Comments: TAKE 1 TABLET BY MOUTH EVERY DAY CALL OFFICE FOR APPT AND REFILLS Referrals / Follow Up: Damari Calixto MD [Primary Care Provider] - Fernie Mckeon MD [Med Staff - Active Staff] - 09/26/23 4:00 pm
--- NOTE | 2023-09-21 11:09 | PCM.DC ---
Discharge Instructions Diet Discharge Diet: No restrictions Activity Discharge Activity: Return to Normal Activity Weight Bearing Status: Full weight bearing Follow Up Care Test Results: Test results from this visit will be discussed in further detail at your follow-up appointment, if applicable. Discharge Plan Admission Admit Date/Time: 09/19/23 08:03 Primary Reason for Your Visit: Sickle cell crisis Attending Provider: Ahsan Gilliam Primary Care Provider: Damari Calixto Consulting Providers: Marianna Pichardo Discharge Orders/Prescriptions Prescriptions: New ferrous sulfate [FeroSul] 325 mg (65 mg iron) Tablet 325 mg PO DAILYCM Qty: 30 0RF folic acid 1 mg Tablet 1 mg PO DAILYCM Qty: 30 0RF pantoprazole 40 mg Tablet,Delayed Release (Dr/Ec) 40 mg PO DAILY Qty: 30 0RF hydrocodone-acetaminophen 5-325 mg tablet 1 tab PO Q6H PRN (Reason: pain) 5 Days Qty: 15 0RF Continued ubroahstu-soqjfnyv-blekbzk ala [Biktarvy] 1 tab PO DAILY Patient Comments: 50-200-25 MG Biktarvy 50-200-25 mg tablet 1 tab PO DAILY Patient Comments: TAKE 1 TABLET BY MOUTH EVERY DAY CALL OFFICE FOR APPT AND REFILLS ibuprofen 800 mg tablet 800 mg PO TID PRN (Reason: pain) Qty: 90 0RF Discontinued ibuprofen 400 mg Tablet 800 mg PO Q6H PRN PRN (Reason: Pain Score 4-10) 30 Days Qty: 60 0RF Referrals / Follow Up: Damari Calixto MD [Primary Care Provider] - Fernie Mckeon MD [Med Staff - Active Staff] - 09/26/23 4:00 pm Disposition Disposition (needs filled in before D/C Order can be placed): Home, Self Care
--- NOTE | 2023-09-21 11:19 | DS.PCM_ITS ---
Providers Date of Admission: 09/19/23 Date of Discharge: 09/21/23 Primary Care Physician: Dr. Damari Calixto MD Reason For Visit: SCD VASO OCCLUSIVE CRISES Diagnosis Discharge Diagnosis (1) Anemia: Status: Acute Code(s): D64.9 - Anemia, unspecified (2) Sickle cell pain crisis: Status: Acute Code(s): D57.00 - Hb-SS disease with crisis, unspecified (3) New onset atrial fibrillation: Status: Acute Code(s): I48.91 - Unspecified atrial fibrillation Plan 1. Acute vaso-occlusive crisis from sickle cell disease #2 anemia secondary to sickle cell disease #3 transient atrial fibrillation Medications at Discharge Home Medications ohhtdktfh-dpqzrsbb-kodmttm ala 1 tab PO DAILY hiv 06/02/23 bictegravir 50 mg-emtricitabine 200 mg-tenofovir alafenam 25 mg tablet (Bik tarvy) 1 tab PO DAILY HIV 09/19/23 ferrous sulfate 325 mg (65 mg iron) tablet (FeroSul) 325 mg PO DAILYCM #30 tabs 09/21/23 folic acid 1 mg tablet 1 mg PO DAILYCM #30 tabs 09/21/23 hydrocodone-acetaminophen 5-325mg 5mg-325mg 1 tab PO Q6H PRN pain 5 days #15 tabs 09/21/23 ibuprofen 800 mg tablet 800 mg PO TID PRN pain #90 tabs 09/21/23 pantoprazole 40 mg tablet,delayed release 40 mg PO DAILY #30 tabs 09/21/23 Hospital Course Operations None Procedures None Summary of Care Provided Minutes Spent on Discharge: 30 Hospital Course: This 33-year-old black male was seen in the emergency room at [facility] with complaints of generalized pain mainly in his hip areas, patient has a history of sickle cell disease and had been admitted to the hospital before for sickle cell crisis. Labs performed in the emergency room showed a hemoglobin of 8.4, white blood cell count was 12.9, chemistry profile revealed an increased bilirubin at 2.2. Patient was admitted to PCU, he was given IV fluids and IV analgesics, patient's condition improved during his hospitalization. On 09/21/2023, patient was seen and examined: On examination he appeared in good health and spirits. Vital signs as documented. Skin warm and dry and without overt rashes. Neck without JVD, neck was supple, trachea midline, thyroid was normal. Lungs clear bilaterally, normal air movement was noted. Heart exam notable for regular rhythm, normal sounds and absence of murmurs, rubs or gallops. Abdomen unremarkable and without evidence of organomegaly, masses, or abdominal aortic enlargement. Bowel sounds are present, abdomen is not distended. Extremities nonedematous, no cyanosis was noted, no clubbing was noted. Neuro: Cranial nerves II through XII are grossly intact, no focal motor deficits were noted, sensation to light touch and pinprick intact, motor exam 5/5 throughout. Psych: Patient is alert and oriented x3, he does not appear anxious or depressed, he does not appear agitated. Patient was discharged in stable condition on 09/21/2023. Weight / BMI Weight Weight: 61.2 kg Body Mass Index (BMI) 18.8 ABG / Lab / Microbiology Data 09/21/23 08:00 09/21/23 08:00 Laboratory: Laboratory Results - last 24 hr 09/20/23 07:25: Diff Path Review Reviewed 09/20/23 12:00: Urine Color Yellow, Urine Clarity Sl. Cloudy, Urine pH 6.0, Ur Specific [place] 1.010, Urine Protein 15 H, Urine Glucose (UA) Normal, Urine Ketones 5 H, Urine Occult Blood 25 H, Urine Nitrite Negative, Urine Bilirubin Negative, Urine Urobilinogen 1 H, Ur Leukocyte Esterase 500 H, Urine RBC 0 SEEN, Urine WBC 50-100 SEEN, Ur Squamous Epith Cells 0-5 SEEN, Urine Bacteria 4+, Urine Mucus 0 SEEN 09/21/23 08:00: WBC 13.9 H, RBC 3.08 L, Hgb 7.8 L, Hct 22.3 L, MCV 72.4 L, MCH 25.3 L, MCHC 35.0 D, RDW Std Deviation 41.6, RDW Coeff of Marko 16.6 H, Plt Count 211, MPV 9.0, Immature Gran % (Auto) 1.400 H, Neut % (Auto) 65.7, Lymph % (Auto) 23.5, [place] % (Auto) 4.6, Eos % (Auto) 4.5, Baso % (Auto) 0.3, Absolute Neuts (auto) 9.2 H, Absolute Lymphs (auto) 3.27, Nucleated RBC % 10.0 H, Sodium 138, Potassium 3.0 L, Chloride 106, Carbon Dioxide 28.0, Anion Gap 4 L, BUN 6 L, Creatinine 0.76, Estim Creat Clear Calc 117.43, Est GFR (MDRD) Af Amer 149, Est GFR (MDRD) Non-Af 123, BUN/Creatinine Ratio 7.9 L, Glucose 130 H, Calcium 8.1 L, Total Bilirubin 2.30 H, AST 35, ALT 19, Alkaline Phosphatase 112, Total Protein 6.2 L, Albumin 2.7 L, Globulin 3.5, Albumin/Globulin Ratio 0.8 L D/C Instructions Discharge Diet: No restrictions Weight Bearing Status: Full weight bearing Meaningful Use Info Meaningful Use Diagnoses (Choose all that apply): None applicable Discharge Plan Admission Admit Date/Time: 09/19/23 08:03 Primary Reason for Your Visit: Sickle cell crisis Attending Provider: Ahsan Gilliam Primary Care Provider: Damari Calixto Consulting Providers: Marianna Pichardo Discharge Orders/Prescriptions Prescriptions: New ferrous sulfate [FeroSul] 325 mg (65 mg iron) Tablet 325 mg PO DAILYCM Qty: 30 0RF folic acid 1 mg Tablet 1 mg PO DAILYCM Qty: 30 0RF pantoprazole 40 mg Tablet,Delayed Release (Dr/Ec) 40 mg PO DAILY Qty: 30 0RF hydrocodone-acetaminophen 5-325 mg tablet 1 tab PO Q6H PRN (Reason: pain) 5 Days Qty: 15 0RF Continued rhwrjznjd-uehbpgim-saiwhyq ala [Biktarvy] 1 tab PO DAILY Patient Comments: 50-200-25 MG Biktarvy 50-200-25 mg tablet 1 tab PO DAILY Patient Comments: TAKE 1 TABLET BY MOUTH EVERY DAY CALL OFFICE FOR APPT AND REFILLS ibuprofen 800 mg tablet 800 mg PO TID PRN (Reason: pain) Qty: 90 0RF Discontinued ibuprofen 400 mg Tablet 800 mg PO Q6H PRN PRN (Reason: Pain Score 4-10) 30 Days Qty: 60 0RF Referrals / Follow Up: Damari Calixto MD [Primary Care Provider] - Fernie Mckeon MD [Med Staff - Active Staff] - 09/26/23 4:00 pm Disposition Disposition (needs filled in before D/C Order can be placed): Home, Self Care Charges/Coding Visit Charges Inpatient E&M: 65374 Disch Hosp
--- NOTE | 2023-09-21 12:30 | CASEMGMT ---
RN CM in to discuss needs at discharge. Patient denies needs at discharge. Patient had no further questions or concerns.
--- NOTE | 2023-09-21 13:31 | PHA.DC.MR.R ---
Pharmacy [place] Med Reconciliation Pharmacy Service has performed discharge medication reconciliation for this patient. Medication education papers prepared, patient discharged before I was able to crisis intervention counselor. Medications reviewed The patient's discharge medication list was reviewed for discrepancies and discrepancies were resolved. Medications at Discharge Home Medications pceiufwbh-bctemzjg-gyxorxq ala 1 tab PO DAILY hiv 06/02/23 bictegravir 50 mg-emtricitabine 200 mg-tenofovir alafenam 25 mg tablet (Biktarvy) 1 tab PO DAILY HIV 09/19/23 ferrous sulfate 325 mg (65 mg iron) tablet (FeroSul) 325 mg PO DAILYCM #30 tabs 09/21/23 folic acid 1 mg tablet 1 mg PO DAILYCM #30 tabs 09/21/23 hydrocodone-acetaminophen 5-325mg 5mg-325mg 1 tab PO Q6H PRN pain 5 days #15 tabs 09/21/23 ibuprofen 800 mg tablet 800 mg PO TID PRN pain #90 tabs 09/21/23 pantoprazole 40 mg tablet,delayed release 40 mg PO DAILY #30 tabs 09/21/23
== END 2023-09-21 13:00 | disposition home or self-care (01) | DRG 662 ==
LOC: ED 05:06 → PCU 08:55
PROVIDERS: Admitting Provider Student in an Organized Health Care Education/Training Program; Emergency Provider Emergency Medicine; PCP Radiology Diagnostic Radiology; Visit Provider Internal Medicine
DX: D57.00 Hb-SS disease with crisis, unspecified (principal); Z21 Asymptomatic human immunodeficiency virus [HIV] infection status; I48.91 Unspecified atrial fibrillation; F17.210 Nicotine dependence, cigarettes, uncomplicated; F17.290 Nicotine dependence, other tobacco product, uncomplicated; Z79.899 Other long term (current) drug therapy
CPT/HCPCS: 36415; 80048; 80053; 80076; 81001; 83021; 85025; 85045; 85660; 93005; 96361; 96374; 96375; 96376; 97161; 99221; 99284; 99406; J7030; A4216; G0378